=== PATIENT | male | born 1985 | race African-American/Black ===

== ENCOUNTER 2018-03-26 21:24 | Emergency (ER) | payer OTHER ==
--- NOTE | 2018-03-26 21:38 | PDOC ---
Rapid Medical Evaluation Time Seen by Provider: 03/26/18 21:28 Medical Evaluation: 03/26/18 21:28 I have performed a brief in-person evaluation of this patient. The patient presents with a chief complaint of: fatigued, anosmia and chronic pain for 5-6 months Pertinent physical exam findings: EOMI. No sinus tenderness. +nasal congestion I have ordered the following: nothing The patient will proceed to the ED for further evaluation. Discharge Disposition - Diagnosis Anosmia - Referrals - Patient Instructions - Post Discharge Activity
[2018-03-26 21:43] VITALS: BP 129/84; PULSE 94; TEMP 97.3; BMI 25.1
--- NOTE | 2018-03-26 22:17 | PDOC ---
History of Present Illness - General Chief Complaint: Chronic pain Stated Complaint: WEAKNESS/TROUBLE SMELLING Time Seen by Provider: 03/26/18 21:28 - History of Present Illness Initial Comments: 32-year-old male presents for evaluation of nasal congestion 3 days. He's had generalized body aches and pains for the last 5 months. He has no other associated symptoms 03/26/18 22:14 Past History - Past Medical History Home Medications: Ambulatory Orders Budesonide [Rhinocort Allergy] 1 spray NS ONCE #1 spray.pump 03/26/18 Cetirizine HCl/Pseudoephedrine [Zyrtec-D Tablet] 1 each PO DAILY #30 tab.er.12h 03/26/18 COPD: No Other medical history: headaches, chronic pain - Suicide/Smoking/Psychosocial Hx Smoking History: Current every day smoker Have you smoked in the past 12 months: Yes Number of Cigarettes Smoked Daily: 6 Information on smoking cessation initiated: Yes 'Breaking Loose' booklet given: 03/26/18 Hx Alcohol Use: No Drug/Substance Use Hx: No Substance Use Type: None Review of Systems - Review of Systems HEENTM: Yes: Nose Congestion All Other Systems: Reviewed and Negative *Physical Exam - Vital Signs Last Vital Signs Temp Pulse Resp BP Pulse Ox 97.3 F L 94 H 20 129/84 100 03/26/18 21:34 03/26/18 21:34 03/26/18 21:34 03/26/18 21:34 03/26/18 21:34 - Physical Exam Comments: GENERAL: The patient is awake, alert, and fully oriented, in no acute distress. HEAD: Normal with no signs of trauma. EYES: Pupils equal, round and reactive to light, extraocular movements intact, sclera anicteric, conjunctiva clear. ENT: Ears normal, nasal turbinates injected, oropharynx clear without exudates. Moist mucous membranes. NECK: Normal range of motion, supple without lymphadenopathy, JVD, or masses. LUNGS: Breath sounds equal, clear to auscultation bilaterally. No wheezes, and no crackles. HEART: Regular rate and rhythm, normal S1 and S2 without murmur, rub or gallop. ABDOMEN: Soft, nontender, normoactive bowel sounds. No guarding, no rebound. No masses. EXTREMITIES: Normal range of motion, no edema. No clubbing or cyanosis. No cords, erythema, or tenderness. NEUROLOGICAL: Cranial nerves II through XII grossly intact. Normal speech, normal gait. PSYCH: Normal mood, normal affect. SKIN: Warm, Dry, normal turgor, no rashes or lesions noted. 03/26/18 22:14 Medical Decision Making - Medical Decision Making Is is most likely seasonal ALLERGIES I'll prescribe him an antihistamine and decongestant as well as a nasal corticosteroid. I'll have him follow-up with the primary care physician for his fatigue 03/26/18 22:15 *DC/Admit/Observation/Transfer Diagnosis at time of Disposition: Anosmia, Seasonal allergies, Chronic fatigue disorder - Discharge Dispostion Disposition: HOME Condition at time of disposition: Stable Decision to Admit order: No - Prescriptions Prescriptions: Budesonide [Rhinocort Allergy] 1 spray NS ONCE #1 spray.pump Cetirizine HCl/Pseudoephedrine [Zyrtec-D Tablet] 1 each PO DAILY #30 tab.er.12h - Referrals Referrals: Rick Damon [Non Staff, Medical] - - Patient Instructions Printed Discharge Instructions: Allergic Rhinitis, DI for Chronic Fatigue Syndrome Additional Instructions: Return to the emergency room should her symptoms worsen or go unresolved. In the meantime I prescribed few a nasal decongestant spray which is a steroid as well as a antihistamine and decongestant to help with your symptoms. Follow-up with internal medicine within the next 1-2 days for further evaluation and treatment options. Take the medication as directed. - Post Discharge Activity
== END 2018-03-26 22:17 | disposition home or self-care (01) ==
LOC: JERFT 21:24
DX: R43.0 Anosmia (principal); J30.2 Other seasonal allergic rhinitis; R53.82 Chronic fatigue, unspecified
CPT/HCPCS: 99281-25

== ENCOUNTER 2019-02-16 09:24 | Observation (INO) | payer OTHER ==
[2019-02-16] MEDS ORDERED: KETOROLAC TROMETHAMINE 60 MG/2 ML VIAL IM ONE (10:17)
--- NOTE | 2019-02-16 10:25 | PDOC ---
History of Present Illness - General Chief Complaint: Pain, Acute Stated Complaint: LT SHOULDER PAIN Time Seen by Provider: 02/16/19 09:55 History Source: Patient Exam Limitations: Clinical Condition - History of Present Illness Initial Comments: 02/16/19 10:19 Patient with no significant past medical history present with complaint of worsening left upper shoulder, left hand and right wrist pain starting yesterday which has been persistent. Patient reported increased pain when elevating left forearm and the shoulder region. 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 Denies any trauma or injury. Denies numbness or tingling sensation. Denies any other symptoms Timing/Duration: 24 hours Past History - Past Medical History Allergies/Adverse Reactions: Allergies Allergy/AdvReac Type Severity Reaction Status Date / Time No Known Allergies Allergy Verified 02/16/19 10:23 Home Medications: Ambulatory Orders Budesonide [Rhinocort Allergy] 1 spray NS ONCE #1 spray.pump 03/26/18 Cetirizine HCl/Pseudoephedrine [Zyrtec-D Tablet] 1 each PO DAILY #30 tab.er.12h 03/26/18 Ibuprofen 800 mg PO Q8H PRN #20 tablet 02/16/19 Methocarbamol [Robaxin -] 500 mg PO TID PRN #21 tablet 02/16/19 COPD: No - Suicide/Smoking/Psychosocial Hx Smoking History: Never smoked Have you smoked in the past 12 months: Yes Number of Cigarettes Smoked Daily: 6 'Breaking Loose' booklet given: 03/26/18 Hx Alcohol Use: No Drug/Substance Use Hx: No Substance Use Type: None Review of Systems - Review of Systems Able to Perform ROS?: Yes Is the patient limited Indonesian proficient: No Constitutional: No: Chills, Fever, Malaise HEENTM: No: Symptoms Reported Respiratory: No: Symptoms reported Cardiac (ROS): No: Symptoms Reported ABD/GI: No: Symptoms Reported Musculoskeletal: Yes: Symptoms Reported, See HPI, Joint Pain (left shoulder, right wrist), Muscle Pain (palmar aspect of left hand). No: Muscle Weakness Neurological: No: Numbness, Paresthesia, Tingling All Other Systems: Reviewed and Negative *Physical Exam - Vital Signs Last Vital Signs Temp Pulse Resp BP Pulse Ox 105 H 22 H 107/66 96 02/16/19 09:48 02/16/19 09:48 02/16/19 09:48 02/16/19 09:48 - Physical Exam Comments: 02/16/19 10:23 GENERAL: Well developed, well nourished. Awake and alert. No acute distress. CARDIOVASCULAR: Regular rate and rhythm. No murmurs, rubs, or gallops. PULMONARY: No evidence of respiratory distress. Lungs clear to auscultation bilaterally. No wheezing, rales or rhonchi. ABDOMINAL: Soft. Non-tender. Non-distended. No rebound or guarding. No organomegaly. Normoactive bowel sounds MUSCULOSKELETAL : Mild tenderness over anterior left shoulder and before meals joint of left shoulder which is worse when elevation of left upper arm. Mild point tenderness to palmar aspect of bilateral hands and mild tenderness to thumb area of right wrist. Free range of motion of bilateral upper extremity. 5 out of 5 muscle strength in bilateral upper extremity. No bony deformities SKIN: Warm and dry. Normal capillary refill. No rashes. No cyanosis or increased warmth to skin. NEUROLOGICAL: Alert, awake, appropriate. No motor deficits in the lower extremities. Gait is normal without ataxia. PSYCHIATRIC: Cooperative. Good eye contact. Appropriate mood and affect. General Appearance: Yes: Nourished, Appropriately Dressed. No: Apparent Distress ED Treatment Course - LABORATORY CBC & Chemistry Diagram: 02/16/19 11:51 02/16/19 11:51 - RADIOLOGY Radiology Studies Ordered: Category Date Time Status HAND- LEFT [RAD] Stat Radiology 02/16/19 10:12 Ordered SHOULDER-LEFT [RAD] Stat Radiology 02/16/19 10:12 Ordered WRIST- RIGHT [RAD] Stat Radiology 02/16/19 10:17 Ordered Medical Decision Making - Medical Decision Making 02/16/19 10:20 Patient with no significant past medical history present with complaint of worsening left upper shoulder, left hand and right wrist pain starting yesterday which has been persistent. Patient reported increased pain when elevating left forearm and the shoulder region. 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 Denies any trauma or injury. Denies numbness or tingling sensation. Denies any other symptoms Exam significant for mild tenderness over anterior left shoulder and AC joint to left shoulder with mild tenderness to palmar aspect of left hand and thenar muscle of right wrist. Free range of motion of hands and shoulder. Normal sensory to bilateral upper extremity. Symptoms likely muscle strain from excessive use versus less likely dislocated shoulder. Toradol 60 IM ordered for pain. X-ray of left shoulder and bilateral hand and wrist ordered to rule out acute pathology. Patient be discharged home on a muscle relaxant NSAIDs if negative x-ray with orthopedics follow-up 02/16/19 11:17 Patient started having symptoms of SOB and sweating whiles in x-rays. Patient x- rays with no significant findings. Symptoms likely vasovagal reaction. EKG ordered. Patient transferred to main ED for follow-up care. Patient signed out to Dr. Massey *DC/Admit/Observation/Transfer Diagnosis at time of Disposition: Asthma exacerbation, Acute respiratory failure Strain of left shoulder Qualifiers: Encounter type: initial encounter Qualified Code(s): S46.912A - Strain of unspecified muscle, fascia and tendon at shoulder and upper arm level, left arm , initial encounter Strain of right wrist Qualifiers: Encounter type: initial encounter Qualified Code(s): S66.911A - Strain of unspecified muscle, fascia and tendon at wrist and hand level, right hand, initial encounter - Discharge Dispostion Condition at time of disposition: Guarded Decision to Admit order: No - Prescriptions Prescriptions: Ibuprofen 800 mg PO Q8H PRN #20 tablet PRN Reason: pain Methocarbamol [Robaxin -] 500 mg PO TID PRN #21 tablet PRN Reason: shoulder pain - Referrals - Patient Instructions - Post Discharge Activity
--- NOTE | 2019-02-16 11:09 | PDOC ---
*Physical Exam - Vital Signs Last Vital Signs Temp Pulse Resp BP Pulse Ox 105 H 22 H 107/66 96 02/16/19 09:48 02/16/19 09:48 02/16/19 09:48 02/16/19 09:48 Heart Score/ECG Review #1 ECG reviewed & interpreted by me at: 11:05 General ECG Interpretation: Sinus Rhythm, Normal Intervals Compared to previous ECG there are: Previous ECG unavail 02/16/19 12:53 EKG sinus tachycardia at 113 bpm, no interval abnormalities, narrow QRS, ST and T wave segments and morphology normal. Nonspecific T wave abnormalities - some limitations with artifact. ED Treatment Course - LABORATORY CBC & Chemistry Diagram: 02/16/19 11:51 02/16/19 11:51 - Medications Given in the ED: ED Medications Discontinued Medications Generic Name Dose Route Start Last Admin Trade Name Linoq PRN Reason Stop Dose Admin Ketorolac Tromethamine 60 mg 02/16/19 10:17 02/16/19 10:22 Toradol Injection - IM 02/16/19 10:18 60 mg ONCE ONE Administration Medical Decision Making - Medical Decision Making 02/16/19 11:08 The patient was seen and evaluated in conjunction with midlevel provider under my direct supervision, ancillary studies were reviewed. I agree with the plan as outlined DAR Coon. HPI, workup/dispo as outlined. VS reviewed, wnl. in summary 33 YOM with h/o allergies and asthma presenting with left shoulder pain, left hand pain, right wrist pain. 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 denies trauma. pt sent to Main section after episode of diaphoresis/SOB/hyperventilating and pale while in XR, witnessed episode where he felt blurry vision, near syncope/ fainting episode.. No primary care physician. +smoker - pt states he has left shoulder pain. also did not eat this morning. c/o some dizziness, sweats, coughing, and sob/anxiety. I promptly went to assess the patient as well while in Xray at 02/16/19 11:16 - able to speak, hyperventilating, anxious. mental status intact, neuro intact. lungs clear, tachy, no murmur. +left anterior AC jt tenderness, FROM, no back tenderness. no complaints of cp - VS with tachycardia in 100s, mildly tachypneic as hyperventilating but SpO2 normal, normotensive analgesia s/p toradol. additional meds given, tylenol and IVF EKG sinus tachycardia. limitations with artifact. hydration, BGM, basic labs, dimer, reassess. Xray left shoulder wnl, no fx or dislocation, humeral head in glenohumeral joint appropriately. no AC joint separation, no clavicle fx hand/wrist xr neg for osseous injuries or fx or abnormalities/acute pathology. 02/16/19 11:39 now with rhonchi and diffuse wheezing, increased WOB findings worse on left lung field.- h/o asthma, uses rescue inhaler occasionally, as needed will give duonebs x3, Mg and IV solumedrol, reassess eyes red, but no itching, airway intact, unable to speak full sentences but WOB. allergic reaction to toradol earlier that was given? no airway compromise to suggest Anaphylaxis at this time. now with acute Asthma exacerbation, no prior ICU stay or intubations previously. 02/16/19 12:34 - on reassessment, SpO2 92% on 4L NC - hypoxic off O2. O2 supplemental as needed , Q4H albuterol nebs. breathing comfortably after treatment, on monitor CXR clear, no ptx, effusion, pna. CT angio chest to eval for PE for persistent tachycardia and acute SOB. neg for PE< but +bronchiectasis and mucus plugging. 02/16/19 14:40 - standing Q4H albuterol nebs for respiratory support. no infectious sx. defer abx admit to Dr Álvarez, spoke about admission, tele obs for acute respiratory failure 2/2 asthma and bronchiectasis and unclear etiology. 02/16/19 14:45 02/16/19 14:45 *DC/Admit/Observation/Transfer Diagnosis at time of Disposition: Bronchiectasis Strain of left shoulder Qualifiers: Encounter type: initial encounter Qualified Code(s): S46.912A - Strain of unspecified muscle, fascia and tendon at shoulder and upper arm level, left arm , initial encounter Strain of right wrist Qualifiers: Encounter type: initial encounter Qualified Code(s): S66.911A - Strain of unspecified muscle, fascia and tendon at wrist and hand level, right hand, initial encounter Asthma exacerbation Qualifiers: Asthma severity: moderate Asthma persistence: unspecified Qualified Code(s): J45.901 - Unspecified asthma with (acute) exacerbation Acute respiratory failure Qualifiers: Respiratory failure complication: hypoxia Qualified Code(s): J96.01 - Acute respiratory failure with hypoxia - Discharge Dispostion Condition at time of disposition: Guarded Decision to Admit order: Yes Decision to Admit order Date/Time: 02/16/19 14:40 Decision to Admit Order Category Date Time Status Decision to Admit to Hospital Routine Admission 02/16/19 14:38 Ordered - Prescriptions Prescriptions: Ibuprofen 800 mg PO Q8H PRN #20 tablet PRN Reason: pain Methocarbamol [Robaxin -] 500 mg PO TID PRN #21 tablet PRN Reason: shoulder pain - Referrals - Patient Instructions - Post Discharge Activity
[2019-02-16] MEDS ORDERED: SODIUM CHLORIDE 0.9% 500 ML INFUS.BAG IV ONE (11:15)
[2019-02-16] MEDS ORDERED: ACETAMINOPHEN 325 MG TABLET (FP) PO ONE (11:16)
[2019-02-16] MEDS ORDERED: methylPREDNISolone NA SUCC 125 MG/2 ML VIAL IVPUSH ONE (11:39)
[2019-02-16] MEDS ORDERED: ALBUTEROL SO4 2.5/IPRATROPIUM 0.5 INH SOL 3 ML VIAL.NEB. NEB ONE (11:41)
[2019-02-16] MEDS ORDERED: MAGNESIUM SULF 50% (8.12 MEQ/2 ML-1 GM VIAL) IVPB ONE (11:43)
[2019-02-16] MEDS ORDERED: MAGNESIUM 1GM/D5W - 2 GM/200 ML IVPB IVPB ONE (11:48)
[2019-02-16] MEDS ORDERED: methylPREDNISolone NA SUCC 125 MG/2 ML VIAL ONE (11:48)
[2019-02-16] MEDS ORDERED: ACETAMINOPHEN INJECTION 100 ML IVPB ONE (11:53)
[2019-02-16 11:58] LABS: BASO % 0.5 % (0-2.0); EOS % 2.8 % (0-4.5); HEMATOCRIT 48.4 % (35.4-49); HEMOGLOBIN 15.9 GM/dL (11.7-16.9); LYMPH % 23.7 % (8-40); MCH 28.3 pg (25.7-33.7); MCHC 32.9 g/dl (32.0-35.9); MEAN CELL VOLUME 86.1 fl (80-96); MEAN PLT VOLUME 8.2 fl (7.5-11.1); PLATELET COUNT 288 K/MM3 (134-434); RBC 5.62 M/mm3 (4.00-5.60); RDW 14.6 % (11.9-15.9); WHITE BLOOD COUNT 8.3 K/mm3 (4.0-10.0)
[2019-02-16] MEDS: ALBUTEROL SO4 2.5/IPRATROPIUM 0.5 INH SOL 3 ML VIAL.NEB. NEB SCH ×3 (12:08→12:22)
[2019-02-16] MEDS ORDERED: ACETAMINOPHEN 1000 MG/100 ML VIAL (NON FORMULARY) IVPB ONE (12:23)
[2019-02-16 12:30] LABS: ANION GAP 9 MMOL/L (8-16); BLOOD UREA NITROGEN 10 mg/dL (7-18); CHLORIDE 104 mmol/L (98-107); CO2 23 mmol/L (21-32); GLUCOSE,RANDOM 126 mg/dL (74-106); POTASSIUM 3.9 mmol/L (3.5-5.1); SODIUM 137 mmol/L (136-145)
[2019-02-16] MEDS: ALBUTEROL SO4 0.083% IH SOL 2.5 MG/3 ML VIAL.NEB. NEB SCH ×2 (16:32→20:12)
--- NOTE | 2019-02-16 18:19 | HP ---
Admitting History and Physical - Primary Care Physician PCP: Chandrakant Álvarez - Admission History of Present Illness: Patient with no significant past medical history present with complaint of worsening left upper shoulder, left hand and right wrist pain starting yesterday which has been persistent. Patient reported increased pain when elevating left forearm and the shoulder region. 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 Denies any trauma or injury. Denies numbness or tingling sensation. Denies any other symptoms SMOKER FOR 12 YEARS - Past Medical History Pulmonary: Yes: COPD - Smoking History Smoking history: Never smoked Have you smoked in the past 12 months: Yes Aproximately how many cigarettes per day: 6 - Alcohol/Substance Use Hx Alcohol Use: No Home Medications - Allergies Allergies/Adverse Reactions: Allergies Allergy/AdvReac Type Severity Reaction Status Date / Time ketorolac [From Toradol] Allergy Verified 02/16/19 17:05 - Home Medications Home Medications: Ambulatory Orders Budesonide [Rhinocort Allergy] 1 spray NS ONCE #1 spray.pump 03/26/18 Cetirizine HCl/Pseudoephedrine [Zyrtec-D Tablet] 1 each PO DAILY #30 tab.er.12h 03/26/18 Ibuprofen 800 mg PO Q8H PRN #20 tablet 02/16/19 Methocarbamol [Robaxin -] 500 mg PO TID PRN #21 tablet 02/16/19 Physical Examination Vital Signs: Vital Signs Temperature 97.5 F L 02/16/19 17:52 Pulse Rate 103 H 02/16/19 17:52 Respiratory Rate 20 02/16/19 17:52 Blood Pressure 159/83 02/16/19 17:52 O2 Sat by Pulse Oximetry (%) 94 L 02/16/19 18:00 Constitutional: Yes: No Distress HENT: Yes: Atraumatic Neck: Yes: Supple Cardiovascular: Yes: Regular Rate and Rhythm Respiratory: Yes: Rhonchi, Wheezes Gastrointestinal: Yes: Normal Bowel Sounds Extremities: Yes: WNL Edema: No Peripheral Pulses WNL: Yes Neurological: Yes: Alert, Oriented Labs: CBC, BMP 02/16/19 11:51 02/16/19 11:51 Imaging - Results X-ray: Report Reviewed Cat Scan: Report Reviewed Problem List - Problems (1) Allergic reaction Assessment/Plan: to toradol on steroids and benadryl Code(s): T78.40XA - ALLERGY, UNSPECIFIED, INITIAL ENCOUNTER (2) Strain of left shoulder Code(s): S46.912A - STRAIN UNSP MUSC/FASC/TEND AT SHLDR/UP ARM, LEFT ARM, INIT Qualifiers: Encounter type: initial encounter Qualified Code(s): S46.912A - Strain of unspecified muscle, fascia and tendon at shoulder and upper arm level, left arm , initial encounter (3) Strain of right wrist Code(s): S66.911A - STRAIN OF UNSP MUSC/FASC/TEND AT WRS/HND LV, R HAND, INIT Qualifiers: Encounter type: initial encounter Qualified Code(s): S66.911A - Strain of unspecified muscle, fascia and tendon at wrist and hand level, right hand, initial encounter (4) Asthma exacerbation Assessment/Plan: DUO NEBS IV STEROIDS Code(s): J45.901 - UNSPECIFIED ASTHMA WITH (ACUTE) EXACERBATION Qualifiers: Asthma severity: moderate Asthma persistence: unspecified Qualified Code( s): J45.901 - Unspecified asthma with (acute) exacerbation (5) Bronchiectasis Code(s): J47.9 - BRONCHIECTASIS, UNCOMPLICATED Assessment/Plan Laboratory Tests 02/16/19 02/16/19 02/16/19 11:51 11:51 11:51 WBC 8.3 RBC 5.62 H Hgb 15.9 Hct 48.4 MCV 86.1 MCH 28.3 MCHC 32.9 RDW 14.6 Plt Count 288 MPV 8.2 Absolute Neuts (auto) 5.7 Neutrophils % 68.0 Lymphocytes % 23.7 Monocytes % 5.0 Eosinophils % 2.8 Basophils % 0.5 Nucleated RBC % 0 D-Dimer 539 H Sodium 137 Potassium 3.9 Chloride 104 Carbon Dioxide 23 Anion Gap 9 BUN 10 Creatinine 1.0 Est GFR (CKD-EPI)AfAm 114.91 Est GFR (CKD-EPI)NonAf 99.15 Random Glucose 126 H Calcium 9.0 Troponin I < 0.02 Active Medications Generic Name Dose Route Start Last Admin Trade Name Freq PRN Reason Stop Dose Admin Albuterol/Ipratropium 1 amp 02/16/19 20:21 02/17/19 06:40 Duoneb - NEB 1 amp Q4H PRN Administration SHORTNESS OF BREATH Diphenhydramine HCl 25 mg 02/16/19 20:18 Benadryl - PO Q6H PRN FOR ITCHING Methylprednisolone Sodium Succinate 60 mg 02/16/19 21:00 02/17/19 15:01 Solu-Medrol - IVPUSH 60 mg Q6H-IV SANTIAGO Administration Oxycodone HCl 10 mg 02/16/19 18:20 Roxicodone - PO Q6H PRN PAIN
[2019-02-16] MEDS ORDERED: oxyCODONE HCL 5 MG TABLET PO PRN (18:20)
[2019-02-16] MEDS ORDERED: diphenhydrAMINE HCL 25 MG CAPSULE (FP) PO ONE (20:17)
[2019-02-16] MEDS ORDERED: diphenhydrAMINE HCL 25 MG CAPSULE (FP) PO PRN (20:18)
[2019-02-16] MEDS: methylPREDNISolone NA SUCC 40 MG/1 ML VIAL IVPUSH SCH (20:31)
[2019-02-17] MEDS: methylPREDNISolone NA SUCC 40 MG/1 ML VIAL IVPUSH SCH ×4 (02:11→21:48)
[2019-02-17] MEDS: ALBUTEROL SO4 2.5/IPRATROPIUM 0.5 INH SOL 3 ML VIAL.NEB. NEB PRN (06:40)
--- NOTE | 2019-02-17 13:45 | EKG ---
Test Reason : Blood Pressure : / mmHG Vent. Rate : 113 BPM Atrial Rate : 113 BPM P-R Int : 122 ms QRS Dur : 086 ms QT Int : 300 ms P-R-T Axes : 077 093 060 degrees QTc Int : 411 ms SINUS TACHYCARDIA RIGHTWARD AXIS BORDERLINE ECG NO PREVIOUS ECGS AVAILABLE Confirmed by MD Piyush, Wyatt ([id number]) on 02/17/2019 1:45:35 PM Referred By: Confirmed By:Wyatt Pikcett MD
--- NOTE | 2019-02-17 15:42 | PN ---
Progress Note, Physician - Current Medication List Current Medications: Active Medications Albuterol/Ipratropium (Duoneb -) 1 amp NEB Q4H PRN PRN Reason: SHORTNESS OF BREATH Last Admin: 02/17/19 06:40 Dose: 1 amp Diphenhydramine HCl (Benadryl -) 25 mg PO Q6H PRN PRN Reason: FOR ITCHING Methylprednisolone Sodium Succinate (Solu-Medrol -) 60 mg IVPUSH Q6H-IV SANTIAGO Last Admin: 02/17/19 15:01 Dose: 60 mg Oxycodone HCl (Roxicodone -) 10 mg PO Q6H PRN PRN Reason: PAIN - Objective Vital Signs: Vital Signs Temperature 97.6 F 02/17/19 15:00 Pulse Rate 94 H 02/17/19 15:00 Respiratory Rate 20 02/17/19 15:00 Blood Pressure 125/77 02/17/19 15:00 O2 Sat by Pulse Oximetry (%) 95 02/17/19 10:00 Constitutional: Yes: No Distress HENT: Yes: Atraumatic Neck: Yes: Supple Cardiovascular: Yes: Regular Rate and Rhythm Respiratory: Yes: Rhonchi, Wheezes Gastrointestinal: Yes: Normal Bowel Sounds Extremities: Yes: WNL Edema: No Peripheral Pulses WNL: Yes Neurological: Yes: Alert, Oriented Labs: CBC, BMP 02/16/19 11:51 02/16/19 11:51 Problem List - Problems (1) Allergic reaction Assessment/Plan: to toradol on steroids and benadryl Code(s): T78.40XA - ALLERGY, UNSPECIFIED, INITIAL ENCOUNTER (2) Strain of left shoulder Code(s): S46.912A - STRAIN UNSP MUSC/FASC/TEND AT SHLDR/UP ARM, LEFT ARM, INIT Qualifiers: Encounter type: initial encounter Qualified Code(s): S46.912A - Strain of unspecified muscle, fascia and tendon at shoulder and upper arm level, left arm , initial encounter (3) Strain of right wrist Code(s): S66.911A - STRAIN OF UNSP MUSC/FASC/TEND AT WRS/HND LV, R HAND, INIT Qualifiers: Encounter type: initial encounter Qualified Code(s): S66.911A - Strain of unspecified muscle, fascia and tendon at wrist and hand level, right hand, initial encounter (4) Asthma exacerbation Assessment/Plan: DUO NEBS IV STEROIDS Code(s): J45.901 - UNSPECIFIED ASTHMA WITH (ACUTE) EXACERBATION Qualifiers: Asthma severity: moderate Asthma persistence: unspecified Qualified Code( s): J45.901 - Unspecified asthma with (acute) exacerbation (5) Bronchiectasis Code(s): J47.9 - BRONCHIECTASIS, UNCOMPLICATED
[2019-02-18] MEDS: methylPREDNISolone NA SUCC 40 MG/1 ML VIAL IVPUSH SCH ×4 (03:05→21:33)
[2019-02-18] MEDS: ALBUTEROL SO4 2.5/IPRATROPIUM 0.5 INH SOL 3 ML VIAL.NEB. NEB PRN ×2 (08:00→19:41)
[2019-02-18] MEDS ORDERED: ACETAMINOPHEN 325 MG TABLET (FP) PO PRN (18:56)
--- NOTE | 2019-02-18 19:00 | PN ---
Progress Note, Physician History of Present Illness: feeling better - Current Medication List Current Medications: Active Medications Acetaminophen (Tylenol -) 650 mg PO Q6H PRN PRN Reason: FEVER Albuterol/Ipratropium (Duoneb -) 1 amp NEB Q4H PRN PRN Reason: SHORTNESS OF BREATH Last Admin: 02/17/19 06:40 Dose: 1 amp Methylprednisolone Sodium Succinate (Solu-Medrol -) 40 mg IVPUSH Q6H-IV SANTIAGO - Objective Vital Signs: Vital Signs Temperature 98.2 F 02/18/19 14:00 Pulse Rate 70 02/18/19 14:00 Respiratory Rate 18 02/18/19 18:00 Blood Pressure 132/78 02/18/19 14:00 O2 Sat by Pulse Oximetry (%) 97 02/18/19 18:00 Constitutional: Yes: No Distress HENT: Yes: Atraumatic Neck: Yes: Supple Cardiovascular: Yes: Regular Rate and Rhythm Respiratory: Yes: Rhonchi, Wheezes Gastrointestinal: Yes: Normal Bowel Sounds Extremities: Yes: WNL Edema: No Neurological: Yes: Alert, Oriented Labs: CBC, BMP 02/16/19 11:51 02/16/19 11:51 Problem List - Problems (1) Allergic reaction Assessment/Plan: taper steroids Code(s): T78.40XA - ALLERGY, UNSPECIFIED, INITIAL ENCOUNTER (2) Strain of left shoulder Code(s): S46.912A - STRAIN UNSP MUSC/FASC/TEND AT SHLDR/UP ARM, LEFT ARM, INIT Qualifiers: Encounter type: initial encounter Qualified Code(s): S46.912A - Strain of unspecified muscle, fascia and tendon at shoulder and upper arm level, left arm , initial encounter (3) Strain of right wrist Code(s): S66.911A - STRAIN OF UNSP MUSC/FASC/TEND AT WRS/HND LV, R HAND, INIT Qualifiers: Encounter type: initial encounter Qualified Code(s): S66.911A - Strain of unspecified muscle, fascia and tendon at wrist and hand level, right hand, initial encounter (4) Asthma exacerbation Assessment/Plan: DUO NEBS IV STEROIDS Code(s): J45.901 - UNSPECIFIED ASTHMA WITH (ACUTE) EXACERBATION Qualifiers: Asthma severity: moderate Asthma persistence: unspecified Qualified Code( s): J45.901 - Unspecified asthma with (acute) exacerbation (5) Bronchiectasis Code(s): J47.9 - BRONCHIECTASIS, UNCOMPLICATED
[2019-02-18 23:29] VITALS: BMI 26.3
[2019-02-19] MEDS: ALBUTEROL SO4 2.5/IPRATROPIUM 0.5 INH SOL 3 ML VIAL.NEB. NEB PRN ×3 (00:55→15:15)
[2019-02-19] MEDS: methylPREDNISolone NA SUCC 40 MG/1 ML VIAL IVPUSH SCH ×3 (02:36→15:28)
[2019-02-19 06:09] LABS: BASO % 0.2 % (0-2.0); HEMATOCRIT 43.5 % (35.4-49); HEMOGLOBIN 14.3 GM/dL (11.7-16.9); LYMPH % 7.4 % (8-40); MCH 28.2 pg (25.7-33.7); MCHC 32.8 g/dl (32.0-35.9); MEAN PLT VOLUME 8.3 fl (7.5-11.1); MONO % 3.4 % (3.8-10.2); PLATELET COUNT 302 K/MM3 (134-434); RBC 5.06 M/mm3 (4.00-5.60); RDW 14.4 % (11.9-15.9); WHITE BLOOD COUNT 12.9 K/mm3 (4.0-10.0)
[2019-02-19 06:43] LABS: ALBUMIN 2.9 g/dl (3.4-5.0); BILIRUBIN,TOTAL 0.3 mg/dL (0.2-1); CALCIUM 8.5 mg/dL (8.5-10.1); CREATININE 0.7 mg/dL (0.55-1.3); POTASSIUM 4.6 mmol/L (3.5-5.1); TOT PROT 6.4 g/dl (6.4-8.2)
[2019-02-19 14:16] VITALS: BP 127/75; PULSE 81; TEMP 98.5
--- NOTE | 2019-02-19 14:38 | CON.PULM ---
Consult Consult Specialty:: PULMONARY Referred by:: Dr Álvarez Reason for Consultation:: bronchiectasis - History of Present Illness Chief Complaint: arm pain History of Present Illness: 33yo male without significant past medical history who was admitted with left arm pain. Pulmonary consulted as CT chest showed evidence of bronchiectasis. He states he was diagnosed with asthma this past month with asthma at [facility]. No shortness of breath, chronic cough or wheezing. No fevers, chills or sweats. He is a smoker for about 10 years, no history of pneumonia. No known family history of lung disease or rheumatologic disease. - History Source History Provided By: Patient, Medical Record Limitations to Obtaining History: No Limitations - Alcohol/Substance Use Hx Alcohol Use: No - Smoking History Smoking history: Never smoked Have you smoked in the past 12 months: Yes Aproximately how many cigarettes per day: 6 Home Medications - Allergies Allergies/Adverse Reactions: Allergies Allergy/AdvReac Type Severity Reaction Status Date / Time ketorolac [From Toradol] Allergy Verified 02/16/19 17:05 - Home Medications Home Medications: Ambulatory Orders Budesonide [Rhinocort Allergy] 1 spray NS ONCE #1 spray.pump 03/26/18 Cetirizine HCl/Pseudoephedrine [Zyrtec-D Tablet] 1 each PO DAILY #30 tab.er.12h 03/26/18 Ibuprofen 800 mg PO Q8H PRN #20 tablet 02/16/19 Methocarbamol [Robaxin -] 500 mg PO TID PRN #21 tablet 02/16/19 Review of Systems - Review of Systems Constitutional: denies: Chills, Fever, Unintentional Wgt. Loss, Weakness Eyes: denies: Recent Change in Vision HENT: denies: Nasal Congestion, Throat Pain Neck: denies: Stiffness, Tenderness Cardiovascular: denies: Chest Pain, Shortness of Breath Respiratory: denies: Cough, Hemoptysis, Wheezing Gastrointestinal: denies: Abdominal Pain, Nausea, Vomiting Genitourinary: denies: Dysuria, Hematuria Neurological: denies: Dizziness, Headache Endocrine: denies: Unexplained Weight Loss Physical Exam Vital Sings: Vital Signs Temperature 98.5 F 02/19/19 14:00 Pulse Rate 81 02/19/19 14:00 Respiratory Rate 18 02/19/19 14:00 Blood Pressure 127/75 02/19/19 14:00 O2 Sat by Pulse Oximetry (%) 97 02/19/19 08:57 Constitutional: Yes: Calm Eyes: Yes: Conjunctiva Clear, EOM Intact HENT: Yes: Atraumatic, Normocephalic Neck: Yes: Supple, Trachea Midline Cardiovascular: Yes: Regular Rate and Rhythm Respiratory: Yes: Diminished (decreased breath sounds at the bases) ...Clubbing: No Gastrointestinal: Yes: Normal Bowel Sounds, Soft. No: Tenderness Edema: No Neurological: Yes: Alert, Oriented Labs: CBC, BMP 02/19/19 05:30 02/19/19 05:30 Imaging - Results Chest X-ray: Report Reviewed, Image Reviewed Cat Scan: Report Reviewed, Image Reviewed (bronchiectasis, COPD changes) Problem List - Problems (1) Bronchiectasis Code(s): J47.9 - BRONCHIECTASIS, UNCOMPLICATED Assessment/Plan Bronchiectasis Smoker - pt current asymptomatic - will need outpt work up including PFTs, sputum culture, IgE level, aspergillus Ab, quantitative immunoglobulins, COLE screen, cystic fibrosis screening, alpha anti trypsin 1 level - smoking cessation discussed - DVT prophylaxis Thank you for this consult Ron Irizarry MD
--- NOTE | 2019-02-19 17:58 | DS ---
Physical Examination Vital Signs: Vital Signs Temperature 98.5 F 02/19/19 14:00 Pulse Rate 81 02/19/19 14:00 Respiratory Rate 18 02/19/19 16:44 Blood Pressure 127/75 02/19/19 14:00 O2 Sat by Pulse Oximetry (%) 97 02/19/19 16:44 Constitutional: Yes: No Distress HENT: Yes: Atraumatic Neck: Yes: Supple Cardiovascular: Yes: Regular Rate and Rhythm Respiratory: Yes: Rhonchi Gastrointestinal: Yes: Normal Bowel Sounds Extremities: Yes: WNL Edema: No Peripheral Pulses WNL: Yes Neurological: Yes: Alert, Oriented Labs: CBC, BMP 02/19/19 05:30 02/19/19 05:30 Discharge Summary Reason For Visit: EXACERBATION OF ASTHMA,ACUTE RESP FAILURE,STRAIN Current Active Problems Acute respiratory failure (Acute) Allergic reaction (Acute) Asthma exacerbation (Acute) Bronchiectasis (Acute) Strain of left shoulder (Acute) Strain of right wrist (Acute) Condition: Guarded - Instructions Referrals: Jeff Cyr MD [Staff Physician] - - Home Medications Comprehensive Discharge Medication List: Ambulatory Orders Budesonide [Rhinocort Allergy] 1 spray NS ONCE #1 spray.pump 03/26/18 Cetirizine HCl/Pseudoephedrine [Zyrtec-D Tablet] 1 each PO DAILY #30 tab.er.12h 03/26/18 Ibuprofen 800 mg PO Q8H PRN #20 tablet 02/16/19 Methocarbamol [Robaxin -] 500 mg PO TID PRN #21 tablet 02/16/19 Prednisone 10 mg PO ASDIR #30 tablet 02/19/19 mn home
== END 2019-02-19 18:57 | disposition home or self-care (01) ==
LOC: JER 09:24 → JERFT 09:24 → JERBED 14:38 → J4S 18:12
PROVIDERS: ADMIT Internal Medicine; ATTEND Internal Medicine
PROC: 3E0333Z Introduction of Anti-inflammatory into Peripheral Vein, Percutaneous Approach (ICD-10-PCS; principal; 2019-02-16)
PROC: 3E0233Z Introduction of Anti-inflammatory into Muscle, Percutaneous Approach (ICD-10-PCS; 2019-02-16)
PROC: 3E03329 Introduction of Other Anti-infective into Peripheral Vein, Percutaneous Approach (ICD-10-PCS; 2019-02-16)
PROC: 3E0337Z Introduction of Electrolytic and Water Balance Substance into Peripheral Vein, Percutaneous Approach (ICD-10-PCS; 2019-02-16)
PROC: 3E033GC Introduction of Other Therapeutic Substance into Peripheral Vein, Percutaneous Approach (ICD-10-PCS; 2019-02-16)
PROC: 3E0F7GC Introduction of Other Therapeutic Substance into Respiratory Tract, Via Natural or Artificial Opening (ICD-10-PCS; 2019-02-16)
DX: J45.901 Unspecified asthma with (acute) exacerbation (principal); J96.01 Acute respiratory failure with hypoxia; J47.9 Bronchiectasis, uncomplicated; T78.40XA Allergy, unspecified, initial encounter; S46.912A Strain of unspecified muscle, fascia and tendon at shoulder and upper arm level, left arm, initial encounter; S66.911A Strain of unspecified muscle, fascia and tendon at wrist and hand level, right hand, initial encounter; R00.0 Tachycardia, unspecified; X58.XXXA Exposure to other specified factors, initial encounter; Y93.9 Activity, unspecified; Y92.9 Unspecified place or not applicable
CPT/HCPCS: 36415; 71046-TC-FY; 71275-TC; 73030-TC-LT-FY; 73110-TC-RT-FY; 73130-TC-LT-FY; 80048; 80053; 84484; 85025; 85379; 93005; 93010; 94640; 96372; 96374; 96375; 96376; 99283-25; G0378; J0131

== ENCOUNTER 2019-03-30 01:37 | Inpatient (IN) | payer OTHER ==
--- NOTE | 2019-03-30 02:01 | PDOC ---
History of Present Illness - General Chief Complaint: Asthma Stated Complaint: ASTHMA Time Seen by Provider: 03/30/19 02:00 - History of Present Illness Initial Comments: 03/30/19 02:00 Mr. Rea is a 33 yo male w/ pmh of Asthma, recently admitted 02/16-02/19 for asthma / bronchiectasis who presents for evaluation of 3 day history of cough and shortness of breath. Patient reports he attempted to use rescue inhaler at home w/out relief. Patient was attempting to make it to an appt this week however presents as his SOB has continued with additional cough. The patient denies chest pain, headache and dizziness. Denies fever, chills, nausea, vomit, diarrhea and constipation. Denies dysuria, frequency, urgency and hematuria. Past History - Past Medical History Allergies/Adverse Reactions: Allergies Allergy/AdvReac Type Severity Reaction Status Date / Time ketorolac [From Toradol] Allergy Verified 03/30/19 02:05 Home Medications: Ambulatory Orders Budesonide [Rhinocort Allergy] 1 spray NS ONCE #1 spray.pump 03/26/18 Cetirizine HCl/Pseudoephedrine [Zyrtec-D Tablet] 1 each PO DAILY #30 tab.er.12h 03/26/18 Ibuprofen 800 mg PO Q8H PRN #20 tablet 02/16/19 Methocarbamol [Robaxin -] 500 mg PO TID PRN #21 tablet 02/16/19 Prednisone 10 mg PO ASDIR #30 tablet 02/19/19 Anemia: No Asthma: Yes Cancer: No Cardiac Disorders: No CVA: No COPD: No CHF: No Dementia: No Diabetes: No GI Disorders: No Disorders: No HTN: No Hypercholesterolemia: No Liver Disease: No Seizures: No Thyroid Disease: No - Surgical History Abdominal Surgery: No Appendectomy: No Cardiac Surgery: No Cholecystectomy: No Lung Surgery: No Neurologic Surgery: No Orthopedic Surgery: No - Immunization History Immunization Up to Date: (unknown) - Suicide/Smoking/Psychosocial Hx Smoking History: Current every day smoker Have you smoked in the past 12 months: Yes Number of Cigarettes Smoked Daily: 6 'Breaking Loose' booklet given: 03/26/18 Hx Alcohol Use: No Drug/Substance Use Hx: No Substance Use Type: None Hx Substance Use Treatment: No Review of Systems - Review of Systems Comments:: 03/30/19 02:01 GENERAL/CONSTITUTIONAL: No fever or chills. No weakness. HEAD, EYES, EARS, NOSE AND THROAT: No change in vision. No ear pain or discharge. No sore throat. CARDIOVASCULAR: No chest pain RESPIRATORY: +3 days of cough and SOB. GASTROINTESTINAL: No nausea, vomiting, diarrhea or constipation. GENITOURINARY: No dysuria, frequency, or change in urination. MUSCULOSKELETAL: No joint or muscle swelling or pain. No neck or back pain. SKIN: No rash NEUROLOGIC: No headache, vertigo, loss of consciousness, or change in strength/ sensation. ENDOCRINE: No increased thirst. No abnormal weight change HEMATOLOGIC/LYMPHATIC: No anemia, easy bleeding, or history of blood clots. ALLERGIC/IMMUNOLOGIC: No hives or skin allergy. *Physical Exam - Physical Exam Comments: 03/30/19 02:01 GENERAL: +Patient obviously SOB w/ cough and limited responses. Awake, alert, and fully oriented HEAD: No signs of trauma, normocephalic, atraumatic EYES: PERRLA, EOMI, sclera anicteric, conjunctiva clear ENT: Auricles normal inspection, hearing grossly normal, nares patent, oropharynx clear without exudates. Moist mucosa NECK: Normal ROM, supple, no lymphadenopathy, JVD, or masses LUNGS: +Wheezing and poor air movement appreciated throughout lung whiting. HEART: Regular rate and rhythm, normal S1 and S2, no murmurs, rubs or gallops, peripheral pulses normal and equal bilaterally. ABDOMEN: Soft, nontender, normoactive bowel sounds. No guarding, no rebound. No masses EXTREMITIES: Normal inspection, Normal range of motion, no edema. No clubbing or cyanosis. NEUROLOGICAL: Cranial nerves II through XII grossly intact. Normal speech, normal gait, no focal sensorimotor deficits SKIN: Warm, Dry, normal turgor, no rashes or lesions noted. ED Treatment Course - LABORATORY CBC & Chemistry Diagram: 03/30/19 02:18 03/30/19 02:18 Medical Decision Making - Medical Decision Making 03/30/19 04:08 Mr. Rea is a 33 yo male w/ pmh as described who presents for evaluation of asthma exacerbation. Patient given steroids and duonebs x4 with significant improvement of breathing. Patient still remains somewhat wheezy however so Mg added to treatment course. 03/30/19 04:44 Patient continued to be SOB. Will admit for further evaluation and monitoring. *DC/Admit/Observation/Transfer Diagnosis at time of Disposition: Asthma exacerbation Qualifiers: Asthma severity: unspecified severity Asthma persistence: unspecified Qualified Code(s): J45.901 - Unspecified asthma with (acute) exacerbation - Discharge Dispostion Condition at time of disposition: Fair Decision to Admit order: Yes - Referrals - Patient Instructions - Post Discharge Activity
[2019-03-30 02:05] VITALS: BMI 27.1
[2019-03-30] MEDS ORDERED: methylPREDNISolone NA SUCC 125 MG/2 ML VIAL IVPB ONE (02:07)
[2019-03-30] MEDS ORDERED: ALBUTEROL SO4 2.5/IPRATROPIUM 0.5 INH SOL 3 ML VIAL.NEB. NEB ONE ×4 (02:09→08:57)
[2019-03-30] MEDS ORDERED: methylPREDNISolone NA SUCC 125 MG/2 ML VIAL ONE (02:16)
[2019-03-30] MEDS: ALBUTEROL SO4 2.5/IPRATROPIUM 0.5 INH SOL 3 ML VIAL.NEB. NEB SCH ×8 (02:16→19:40)
[2019-03-30] MEDS ORDERED: SODIUM CHLORIDE 1,000 ML IV STA (02:23)
[2019-03-30 02:24] LABS: EOS % 5.8 % (0-4.5); HEMATOCRIT 43.8 % (35.4-49); HEMOGLOBIN 14.4 GM/dL (11.7-16.9); LYMPH % 34.2 % (8-40); MCH 28.3 pg (25.7-33.7); MCHC 32.8 g/dl (32.0-35.9); MEAN CELL VOLUME 86.3 fl (80-96); MEAN PLT VOLUME 7.6 fl (7.5-11.1); MONO % 10.2 % (3.8-10.2); NEUT % 48.8 % (42.8-82.8); PLATELET COUNT 262 K/MM3 (134-434); RBC 5.07 M/mm3 (4.00-5.60); RDW 14.4 % (11.9-15.9); WHITE BLOOD COUNT 8.1 K/mm3 (4.0-10.0)
[2019-03-30 03:07] LABS: ALBUMIN 3.3 g/dl (3.4-5.0); BILIRUBIN,TOTAL 0.3 mg/dL (0.2-1); BLOOD UREA NITROGEN 11.3 mg/dL (7-18); CALCIUM 8.8 mg/dL (8.5-10.1); POTASSIUM 3.9 mmol/L (3.5-5.1); TOT PROT 6.9 g/dl (6.4-8.2)
--- NOTE | 2019-03-30 03:30 | PDOC ---
Attending Attestation - Resident Resident Name: Gerry Bolaños - ED Attending Attestation I have performed the following: I have examined & evaluated the patient, The case was reviewed & discussed with the resident, I agree w/resident's findings & plan, Exceptions are as noted - HPI HPI: 03/30/19 03:43 33M pmh of asthma admitted last month for asthma exacerbation here with 3 days of progressive cough and increasingly dependant on his rescue inhaler - Physicial Exam PE: 03/30/19 03:44 Agree with exam as documented by resident - Medical Decision Making 03/30/19 03:48 Asthma exacerbation symptomatic treatment monitor dispo per clinical course 03/30/19 06:50 Patient requiring further care, will admit
[2019-03-30] MEDS ORDERED: MAGNESIUM SULF 50% (8.12 MEQ/2 ML-1 GM VIAL) IVPB ONE (04:07)
--- NOTE | 2019-03-30 05:16 | HP ---
Admitting History and Physical - Primary Care Physician PCP: Wilber Ibanez - Admission Chief Complaint: 3 days of sob/cough History of Present Illness: 33 year old male with Pmhx of asthma, present with sob/cough for past three days patient attempted to use rescue inhaler without any relief. Patient recent admission was 02/16-02/19 for asthma/ bronchiectasis. Patient at this time denies cp/headache/dizziness/ fever/chills/ N&V/diarrhea and constipation. History Source: Patient Limitations to Obtaining History: No Limitations - Past Medical History Pulmonary: Yes: Asthma - Past Surgical History Past Surgical History: Yes: None - Smoking History Smoking history: Current every day smoker Have you smoked in the past 12 months: Yes Aproximately how many cigarettes per day: 6 - Alcohol/Substance Use Hx Alcohol Use: No History of Substance Use: reports: None Home Medications - Allergies Allergies/Adverse Reactions: Allergies Allergy/AdvReac Type Severity Reaction Status Date / Time ketorolac [From Toradol] Allergy Verified 03/30/19 02:05 - Home Medications Home Medications: Ambulatory Orders Budesonide [Rhinocort Allergy] 1 spray NS ONCE #1 spray.pump 03/26/18 Cetirizine HCl/Pseudoephedrine [Zyrtec-D Tablet] 1 each PO DAILY #30 tab.er.12h 03/26/18 Ibuprofen 800 mg PO Q8H PRN #20 tablet 02/16/19 Methocarbamol [Robaxin -] 500 mg PO TID PRN #21 tablet 02/16/19 Prednisone 10 mg PO ASDIR #30 tablet 02/19/19 Review of Systems - Review of Systems Constitutional: reports: No Symptoms Eyes: reports: No Symptoms HENT: reports: No Symptoms Neck: reports: No Symptoms Cardiovascular: reports: No Symptoms Respiratory: reports: Cough, SOB Gastrointestinal: reports: No Symptoms Genitourinary: reports: No Symptoms Breasts: reports: No Symptoms Reported Musculoskeletal: reports: No Symptoms Integumentary: reports: No Symptoms Neurological: reports: No Symptoms Endocrine: reports: No Symptoms Hematology/Lymphatic: reports: No Symptoms Psychiatric: reports: No Symptoms Physical Examination Vital Signs: Vital Signs Temperature 98.7 F 03/30/19 01:37 Pulse Rate 102 H 03/30/19 01:37 Respiratory Rate 22 H 03/30/19 01:37 Blood Pressure 114/74 03/30/19 01:37 O2 Sat by Pulse Oximetry (%) 94 L 03/30/19 01:37 Constitutional: Yes: Well Nourished, Mild Distress Eyes: Yes: WNL, Conjunctiva Clear, EOM Intact HENT: Yes: Atraumatic, Normocephalic Neck: Yes: Supple, Trachea Midline Cardiovascular: Yes: Regular Rate and Rhythm Respiratory: Yes: On Nasal O2, SOB, Wheezes Gastrointestinal: Yes: Normal Bowel Sounds, Soft Integumentary: Yes: WNL Neurological: Yes: Alert, Oriented Psychiatric: Yes: Alert, Oriented Labs: CBC, BMP 03/30/19 02:18 03/30/19 02:18 Problem List - Problems (1) Asthma exacerbation Assessment/Plan: Asthma exacerabtion - In ED steriods, duoneb x4 given, mg+ was added - continue with duoneb q 4 hours - start prednisone 40 mg daily for 10 days - pulmo consult Code(s): J45.901 - UNSPECIFIED ASTHMA WITH (ACUTE) EXACERBATION Qualifiers: Asthma severity: unspecified severity Asthma persistence: unspecified Qualified Code(s): J45.901 - Unspecified asthma with (acute) exacerbation Assessment/Plan Asthma exacerabtion - In ED steriods, duoneb x4 given, mg+ was added - continue with duoneb q 4 hours - start prednisone 40 mg daily for 10 days - pending CXR - pulmo consult Visit type - Emergency Visit Emergency Visit: Yes Care time: The patient presented to the Emergency Department on the above date and was hospitalized for further evaluation of their emergent condition. - New Patient This patient is new to me today: Yes Date on this admission: 03/30/19 - Critical Care Critical Care patient: No
[2019-03-30] MEDS ORDERED: MAGNESIUM 1GM/D5W - 1 GM/100 ML IVPB IVPB ONE (05:22)
[2019-03-30 06:01] LABS: HEMATOCRIT 41.2 % (35.4-49); MCH 28.5 pg (25.7-33.7); MCHC 33.4 g/dl (32.0-35.9); MEAN CELL VOLUME 85.4 fl (80-96)
[2019-03-30 06:06] LABS: BASO % 0.3 % (0-2.0); EOS % 1.4 % (0-4.5); HEMOGLOBIN 13.8 GM/dL (11.7-16.9); MEAN PLT VOLUME 7.6 fl (7.5-11.1); NEUT % 87.3 % (42.8-82.8); PLATELET COUNT 255 K/MM3 (134-434); RBC 4.83 M/mm3 (4.00-5.60); RDW 14.7 % (11.9-15.9); WHITE BLOOD COUNT 9.9 K/mm3 (4.0-10.0)
[2019-03-30 06:25] LABS: ALBUMIN 3.2 g/dl (3.4-5.0); BILIRUBIN,TOTAL 0.2 mg/dL (0.2-1); BLOOD UREA NITROGEN 11.5 mg/dL (7-18); CALCIUM 8.5 mg/dL (8.5-10.1); POTASSIUM 4.3 mmol/L (3.5-5.1); TOT PROT 6.6 g/dl (6.4-8.2)
--- NOTE | 2019-03-30 07:58 | PN ---
Progress Note, Physician Chief Complaint: SOB after running our of bronchodilators at home History of Present Illness: 33 year old male with Pmhx of asthma, present with sob/cough for past three days patient attempted to use rescue inhaler without any relief. Patient recent admission was 02/16-02/19 for asthma/ bronchiectasis. Patient at this time denies cp/headache/dizziness/ fever/chills/ N&V/diarrhea and constipation. - Current Medication List Current Medications: Active Medications Albuterol/Ipratropium (Duoneb -) 1 amp NEB RQID [facility] Stop: 03/30/19 20:01 Prednisone (Deltasone -) 40 mg PO DAILY [facility] Stop: 04/05/19 23:59 - Objective Vital Signs: Vital Signs Temperature 98.7 F 03/30/19 01:37 Pulse Rate 102 H 03/30/19 01:37 Respiratory Rate 22 H 03/30/19 01:37 Blood Pressure 114/74 03/30/19 01:37 O2 Sat by Pulse Oximetry (%) 94 L 03/30/19 01:37 Constitutional: Yes: Well Nourished, No Distress, Calm Eyes: Yes: WNL, Conjunctiva Clear, EOM Intact HENT: Yes: WNL, Atraumatic, Normocephalic Neck: Yes: WNL, Supple, Trachea Midline Cardiovascular: Yes: WNL, Regular Rate and Rhythm Respiratory: Yes: Regular, Wheezes (expiratory wheezes to upper lung whiting) Gastrointestinal: Yes: WNL, Normal Bowel Sounds, Soft ...Rectal Exam: Yes: Deferred Genitourinary: Yes: WNL Musculoskeletal: Yes: WNL Extremities: Yes: WNL Edema: No Peripheral Pulses WNL: Yes Integumentary: Yes: WNL Neurological: Yes: WNL, Alert, Oriented ...Motor Strength: WNL Psychiatric: Yes: WNL, Alert, Oriented Labs: CBC, BMP 03/30/19 05:50 03/30/19 05:50 - ....Imaging Chest X-ray: Image Reviewed (no effusion or infiltrates) Problem List - Problems (1) Prophylactic measure Assessment/Plan: FEN regular diet monitor electrolytes DVT ambulatory Dispo admit to med surg floor and observe overnight full code discharge planning Code(s): Z29.9 - ENCOUNTER FOR PROPHYLACTIC MEASURES, UNSPECIFIED (2) Asthma exacerbation Assessment/Plan: patient states ventolin inhaler was malfunctioning and was without meds x 3 days DUo nebs/ magnesium and Solumedrol 125mg x 1 given in Ed with significant improvement Presnidone 40mg PO started will continue and taper over 2 weeks on discharge supplement O2 to mainatin marko >92% pulmonary consult as per ED request Code(s): J45.901 - UNSPECIFIED ASTHMA WITH (ACUTE) EXACERBATION Qualifiers: Asthma severity: unspecified severity Asthma persistence: unspecified Qualified Code(s): J45.901 - Unspecified asthma with (acute) exacerbation Visit type - Emergency Visit Emergency Visit: Yes ED Registration Date: 03/30/19 Care time: The patient presented to the Emergency Department on the above date and was hospitalized for further evaluation of their emergent condition. - New Patient This patient is new to me today: Yes Date on this admission: 03/30/19 - Critical Care Critical Care patient: No - Discharge Referral Referred to [facility] No
--- NOTE | 2019-03-30 09:32 | EKG ---
Test Reason : Blood Pressure : / mmHG Vent. Rate : 074 BPM Atrial Rate : 074 BPM P-R Int : 132 ms QRS Dur : 102 ms QT Int : 414 ms P-R-T Axes : 063 075 057 degrees QTc Int : 459 ms SINUS RHYTHM WITH MARKED SINUS ARRHYTHMIA WHEN COMPARED WITH ECG OF 16-FEB-2019 11:04, VENT. RATE HAS DECREASED BY 39 BPM Confirmed by RUBÉN MAGANA MD ([id number]) on 03/30/2019 9:32:50 AM Referred By: Confirmed By:RUBÉN MAGANA MD
[2019-03-30] MEDS ORDERED: predniSONE 20 MG TABLET (UD) PO SCH (10:00)
[2019-03-30] MEDS ORDERED: predniSONE 20 MG TABLET (UD) ONE (10:11)
[2019-03-30] MEDS ORDERED: METHOCARBAMOL PO PRN (14:57)
[2019-03-30] MEDS ORDERED: [UNRECOGNIZED DRUG - REMARK] NS SCH (15:00)
[2019-03-30] MEDS ORDERED: ALBUTEROL SO4 2.5/IPRATROPIUM 0.5 INH SOL 3 ML VIAL.NEB. NEB PRN (17:39)
[2019-03-30] MEDS ORDERED: methylPREDNISolone NA SUCC 40 MG/1 ML VIAL IVPUSH SCH (18:00)
--- NOTE | 2019-03-30 18:02 | PN ---
Progress Note (short form) - Note Progress Note: PULMONARY CONSULTATION DICTATED 03/30/19 IMP ACUTE RESPIRATORY DISTRESS ACUTE ASTHMA EXACERBATION BRONCHIECTASIS PA IV STEROIDS INHALED BRONCHODILATORS PEAK FLOW COUGH MEDS IGE LEVEL OUTPATIENT [id number] LEVEL OUTPATIENT PFTS OUTPATIENT ABG DR HERR Problem List - Problems (1) Asthma exacerbation Code(s): J45.901 - UNSPECIFIED ASTHMA WITH (ACUTE) EXACERBATION Qualifiers: Asthma severity: unspecified severity Asthma persistence: unspecified Qualified Code(s): J45.901 - Unspecified asthma with (acute) exacerbation (2) Bronchiectasis Code(s): J47.9 - BRONCHIECTASIS, UNCOMPLICATED (3) Seasonal allergies Code(s): J30.2 - OTHER SEASONAL ALLERGIC RHINITIS
[2019-03-30] MEDS: ALBUTEROL SO4 0.083% IH SOL 2.5 MG/3 ML VIAL.NEB. NEB PRN (18:21)
--- NOTE | 2019-03-30 20:02 | CONS ---
PULMONARY CONSULTATION DATE OF CONSULTATION: 03/30/2019 REFERRING PHYSICIAN: Tamela Wiley MD The patient is a 33-year-old black male with past medical history of asthma and longstanding history of tobacco use, quit a few weeks ago, admitted to [facility] with complaint of 3-day history of increasing shortness of breath, cough, and chest congestion. Patient states he was doing relatively well until 3 days prior to this when he started developing increasing shortness of breath and cough. Apparently, used his inhaler without any improvement. His symptoms continued to worsen, at which time, he presented to the emergency room. In the emergency room, he was noted to be in respiratory distress. He was started on prednisone and inhaled bronchodilators with some improvement, transferred to the medical floor for further management. Of note is he was recently admitted on February 19, for asthma exacerbation. At that time, he underwent a CTA of the chest which revealed evidence of bronchiectatic changes in the lower lobes. He was treated with steroids with good clinical response. Patient denies any recent travel. There is no history of occupational exposure to chemicals or fumes. PAST MEDICAL HISTORY: Again includes asthma. SOCIAL HISTORY: Born in [place], moved to the [place] a few years ago. 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 CURRENT MEDICATIONS: Include Robaxin, budesonide, Rhinocort, Solu-Medrol, and DuoNeb. REVIEW OF SYSTEMS: Positive shortness of breath. Positive cough. Positive orthopnea. No chest pain. No palpitations. No fever. No chills. No hemoptysis. No abdominal pain. PHYSICAL EXAMINATION: General: The patient is a thin male, awake, alert, dyspneic. Vital Signs: Currently afebrile. Heart rate is 92. Blood pressure is 119/61. Respiratory rate is 20. O2 saturation is 95% on 4 L. HEENT: Normocephalic, atraumatic. Neck: Supple. Heart: Regular. S1, S2. Chest: Diffuse bilateral wheezes. Abdomen: Soft. Bowel sounds are positive. Extremities: No cyanosis or edema. LABORATORY DATA: WBC is 9.9, hemoglobin 13.8, hematocrit 41.2, with a platelet count of 255,000. BUN 11, creatinine 1.0. Chest x-ray: No infiltrates. No effusion. IMPRESSION: Acute respiratory distress secondary to acute asthma exacerbation, possibly secondary to upper respiratory infection. PLAN: IV steroids, inhaled bronchodilators, supplemental O2. Monitor peak flow. Check arterial blood gas. PFTs as an outpatient. Serum Ig level as an outpatient. An alpha-1 antitrypsin level,IGE level as an outpatient. Cough medications. FLACA HERR M.D. [id number] MTDD
[2019-03-30] MEDS: methylPREDNISolone NA SUCC 40 MG/1 ML VIAL IVPUSH SCH (21:00)
[2019-03-30] MEDS: guaiFENesin/CODEINE 5 ML UNIT-DOSE CUPS PO PRN (21:41)
[2019-03-30] MEDS ORDERED: [UNRECOGNIZED DRUG - REMARK] NS SCH (22:00)
[2019-03-31] MEDS: ALBUTEROL SO4 0.083% IH SOL 2.5 MG/3 ML VIAL.NEB. NEB PRN (02:02)
[2019-03-31] MEDS: methylPREDNISolone NA SUCC 40 MG/1 ML VIAL IVPUSH SCH ×2 (02:02→17:41)
[2019-03-31] MEDS: guaiFENesin/CODEINE 5 ML UNIT-DOSE CUPS PO PRN ×2 (06:08→15:01)
--- NOTE | 2019-03-31 08:44 | PN ---
Progress Note, Physician Chief Complaint: SOB after running out of bronchodilators at home History of Present Illness: 33 year old male with Pmhx of asthma, present with sob/cough for past three days patient attempted to use rescue inhaler without any relief. Patient recent admission was 02/16-02/19 for asthma/ bronchiectasis. Patient at this time denies cp/headache/dizziness/ fever/chills/ N&V/diarrhea and constipation. - Current Medication List Current Medications: Active Medications Albuterol Sulfate (Ventolin 0.083% Nebulizer Soln -) 1 amp NEB Q4H PRN PRN Reason: SHORT OF BREATH/WHEEZING Last Admin: 03/31/19 02:02 Dose: 1 amp Albuterol/Ipratropium (Duoneb -) 1 amp NEB RQID SANTIAGO Last Admin: 03/30/19 19:40 Dose: 1 amp Guaifenesin/Codeine Phosphate (Robitussin Ac -) 10 ml PO Q8H PRN PRN Reason: COUGH Last Admin: 03/31/19 06:08 Dose: 10 ml Methylprednisolone Sodium Succinate (Solu-Medrol -) 60 mg IVPUSH Q6H-IV SANTIAGO Non-Formulary Medication (Methocarbamol [Robaxin -]) 500 mg PO TID PRN PRN Reason: shoulder pain Non-Formulary Medication (Budesonide [Rhinocort Allergy]) 2 spray NS BID SANTIAGO - Objective Vital Signs: Vital Signs Temperature 97.6 F 03/31/19 06:01 Pulse Rate 89 03/31/19 06:01 Respiratory Rate 20 03/31/19 06:01 Blood Pressure 134/61 03/31/19 06:01 O2 Sat by Pulse Oximetry (%) 97 03/30/19 21:00 Constitutional: Yes: Well Nourished, No Distress, Calm Eyes: Yes: WNL, Conjunctiva Clear, EOM Intact HENT: Yes: WNL, Atraumatic, Normocephalic Neck: Yes: WNL, Supple, Trachea Midline Cardiovascular: Yes: WNL, Regular Rate and Rhythm Respiratory: Yes: WNL, Regular, Diminished (at bases, no wheezing today) Gastrointestinal: Yes: WNL, Normal Bowel Sounds, Soft ...Rectal Exam: Yes: Deferred Genitourinary: Yes: WNL Extremities: Yes: WNL Edema: No Peripheral Pulses WNL: Yes Integumentary: Yes: WNL Neurological: Yes: WNL, Alert, Oriented ...Motor Strength: WNL Psychiatric: Yes: WNL, Alert, Oriented Labs: CBC, BMP 03/30/19 05:50 03/30/19 05:50 Problem List - Problems (1) Prophylactic measure Assessment/Plan: FEN regular diet monitor electrolytes DVT ambulatory Dispo continue as in patient full code discharge planning Code(s): Z29.9 - ENCOUNTER FOR PROPHYLACTIC MEASURES, UNSPECIFIED (2) Asthma exacerbation Assessment/Plan: DUo nebs/ magnesium and Solumedrol 125mg x 1 given in Ed with significant improvement Presnidone 40mg PO started and then change to IV steroids pulmonary consultion appreciated as per pulmonary decreased medrol to 40mg q8h, can likely change to PO prednisone 40mg daily in AM and taper as outpt - will need outpt work up including PFTs, sputum culture, IgE level, aspergillus Ab, quantitative immunoglobulins, COLE screen, cystic fibrosis screening, alpha anti trypsin 1 level Code(s): J45.901 - UNSPECIFIED ASTHMA WITH (ACUTE) EXACERBATION Qualifiers: Asthma severity: unspecified severity Asthma persistence: unspecified Qualified Code(s): J45.901 - Unspecified asthma with (acute) exacerbation (3) Bronchiectasis Code(s): J47.9 - BRONCHIECTASIS, UNCOMPLICATED Visit type - Emergency Visit Emergency Visit: Yes ED Registration Date: 03/30/19 Care time: The patient presented to the Emergency Department on the above date and was hospitalized for further evaluation of their emergent condition. - New Patient This patient is new to me today: No - Critical Care Critical Care patient: No - Discharge Referral [facility]erred to [facility] P.C[facility] No
[2019-03-31] MEDS: ALBUTEROL SO4 2.5/IPRATROPIUM 0.5 INH SOL 3 ML VIAL.NEB. NEB SCH ×4 (08:51→19:55)
[2019-03-31] MEDS ORDERED: methylPREDNISolone NA SUCC 40 MG/1 ML VIAL IVPUSH SCH (09:00)
[2019-03-31] MEDS ORDERED: predniSONE 20 MG TABLET (UD) PO SCH (10:00)
--- NOTE | 2019-03-31 10:16 | PN ---
Progress Note (short form) - Note Progress Note: PULMONARY Denies shortness of breath, cough or wheezing. No fevers or chills. Vital Signs Period Temp Pulse Resp BP Sys/New Pulse Ox Last 24 Hr 97.6 F-98.8 F 71-100 18-20 117-147/61-85 95-97 Gen: NAD at rest Heart: RRR Lung: distant breath sounds, no wheezes Abd: soft, nontender Ext: no edema CBC, BMP 03/30/19 05:50 03/30/19 05:50 Active Medications Albuterol Sulfate (Ventolin 0.083% Nebulizer Soln -) 1 amp NEB Q4H PRN PRN Reason: SHORT OF BREATH/WHEEZING Last Admin: 03/31/19 02:02 Dose: 1 amp Albuterol/Ipratropium (Duoneb -) 1 amp NEB RQID SANTIAGO Last Admin: 03/31/19 08:51 Dose: 1 amp Guaifenesin/Codeine Phosphate (Robitussin Ac -) 10 ml PO Q8H PRN PRN Reason: COUGH Last Admin: 03/31/19 06:08 Dose: 10 ml Methylprednisolone Sodium Succinate (Solu-Medrol -) 60 mg IVPUSH Q6H-IV SANTIAGO Last Admin: 03/31/19 09:07 Dose: 60 mg Non-Formulary Medication (Methocarbamol [Robaxin -]) 500 mg PO TID PRN PRN Reason: shoulder pain Non-Formulary Medication (Budesonide [Rhinocort Allergy]) 2 spray NS BID SANTIAGO A/P Acute Asthma Exacerbation Bronchiectasis - will decrease medrol to 40mg q8h, can likely change to PO prednisone 40mg daily in AM and taper as outpt - will need outpt work up including PFTs, sputum culture, IgE level, aspergillus Ab, quantitative immunoglobulins, COLE screen, cystic fibrosis screening, alpha anti trypsin 1 level
[2019-04-01] MEDS: guaiFENesin/CODEINE 5 ML UNIT-DOSE CUPS PO PRN ×2 (01:14→16:52)
[2019-04-01] MEDS: methylPREDNISolone NA SUCC 40 MG/1 ML VIAL IVPUSH SCH ×2 (01:14→09:31)
[2019-04-01] MEDS: ALBUTEROL SO4 0.083% IH SOL 2.5 MG/3 ML VIAL.NEB. NEB PRN (06:44)
[2019-04-01] MEDS: ALBUTEROL SO4 2.5/IPRATROPIUM 0.5 INH SOL 3 ML VIAL.NEB. NEB SCH ×3 (07:45→16:02)
--- NOTE | 2019-04-01 08:06 | PN ---
Progress Note, Physician Chief Complaint: SOB after running out of bronchodilators at home History of Present Illness: 33 year old male with Pmhx of asthma, present with sob/cough for past three days patient attempted to use rescue inhaler without any relief. Patient recent admission was 02/16-02/19 for asthma/ bronchiectasis. Patient at this time denies cp/headache/dizziness/ fever/chills/ N&V/diarrhea and constipation. - Current Medication List Current Medications: Active Medications Albuterol Sulfate (Ventolin 0.083% Nebulizer Soln -) 1 amp NEB Q4H PRN PRN Reason: SHORT OF BREATH/WHEEZING Last Admin: 04/01/19 06:44 Dose: 1 amp Albuterol/Ipratropium (Duoneb -) 1 amp NEB RQID SANTIAGO Last Admin: 03/31/19 19:55 Dose: 1 amp Guaifenesin/Codeine Phosphate (Robitussin Ac -) 10 ml PO Q8H PRN PRN Reason: COUGH Last Admin: 04/01/19 01:14 Dose: 10 ml Methylprednisolone Sodium Succinate (Solu-Medrol -) 40 mg IVPUSH Q8H-IV SANTIAGO Last Admin: 04/01/19 01:14 Dose: 40 mg Non-Formulary Medication (Methocarbamol [Robaxin -]) 500 mg PO TID PRN PRN Reason: shoulder pain Non-Formulary Medication (Budesonide [Rhinocort Allergy]) 2 spray NS BID SANTIAGO - Objective Vital Signs: Vital Signs Temperature 97.3 F L 04/01/19 05:30 Pulse Rate 81 04/01/19 05:30 Respiratory Rate 20 04/01/19 05:30 Blood Pressure 137/79 04/01/19 05:30 O2 Sat by Pulse Oximetry (%) 95 03/31/19 21:00 Labs: CBC, BMP 03/30/19 05:50 03/30/19 05:50 Problem List - Problems (1) Prophylactic measure Code(s): Z29.9 - ENCOUNTER FOR PROPHYLACTIC MEASURES, UNSPECIFIED (2) Asthma exacerbation Code(s): J45.901 - UNSPECIFIED ASTHMA WITH (ACUTE) EXACERBATION Qualifiers: Asthma severity: unspecified severity Asthma persistence: unspecified Qualified Code(s): J45.901 - Unspecified asthma with (acute) exacerbation (3) Bronchiectasis Code(s): J47.9 - BRONCHIECTASIS, UNCOMPLICATED
[2019-04-01 09:20] LABS: BASO % 0.5 % (0-2.0); EOS % 0.1 % (0-4.5); HEMATOCRIT 45.9 % (35.4-49); LYMPH % 9.8 % (8-40); MCH 28.3 pg (25.7-33.7); MCHC 32.7 g/dl (32.0-35.9); MEAN CELL VOLUME 86.4 fl (80-96); MEAN PLT VOLUME 8.2 fl (7.5-11.1); MONO % 2.8 % (3.8-10.2); NEUT % 86.8 % (42.8-82.8); PLATELET COUNT 290 K/MM3 (134-434); RBC 5.31 M/mm3 (4.00-5.60)
[2019-04-01 09:59] LABS: ALBUMIN 3.5 g/dl (3.4-5.0); BILIRUBIN,TOTAL 0.3 mg/dL (0.2-1); BLOOD UREA NITROGEN 18.8 mg/dL (7-18); CALCIUM 9.1 mg/dL (8.5-10.1); CREATININE 0.9 mg/dL (0.55-1.3); MAGNESIUM 2.6 mg/dL (1.8-2.4); POTASSIUM 4.5 mmol/L (3.5-5.1); TOT PROT 7.4 g/dl (6.4-8.2)
[2019-04-01 13:56] VITALS: BP 131/73; PULSE 87; TEMP 98
--- NOTE | 2019-04-01 13:56 | PN ---
Progress Note (short form) - Note Progress Note: PULMONARY Denies shortness of breath, cough or wheezing. Vital Signs Period Temp Pulse Resp BP Sys/New Pulse Ox Last 24 Hr 97.3 F-98.9 F 81-86 18-20 121-137/73-79 95-95 Gen: NAD at rest Heart: RRR Lung: distant breath sounds, no wheezes Abd: soft, nontender Ext: no edema CBC, BMP 04/01/19 08:45 04/01/19 08:45 Active Medications Albuterol Sulfate (Ventolin 0.083% Nebulizer Soln -) 1 amp NEB Q4H PRN PRN Reason: SHORT OF BREATH/WHEEZING Last Admin: 04/01/19 06:44 Dose: 1 amp Albuterol/Ipratropium (Duoneb -) 1 amp NEB RQID SANTIAGO Last Admin: 04/01/19 11:06 Dose: 1 amp Guaifenesin/Codeine Phosphate (Robitussin Ac -) 10 ml PO Q8H PRN PRN Reason: COUGH Last Admin: 04/01/19 01:14 Dose: 10 ml Non-Formulary Medication (Methocarbamol [Robaxin -]) 500 mg PO TID PRN PRN Reason: shoulder pain Non-Formulary Medication (Budesonide [Rhinocort Allergy]) 2 spray NS BID SANTIAGO Prednisone (Deltasone -) 40 mg PO DAILY SANTIAGO A/P Acute Asthma Exacerbation Bronchiectasis - inhaled bronchodilators - prednisone taper - will need outpt work up including PFTs, sputum culture, IgE level, aspergillus Ab, quantitative immunoglobulins, COLE screen, cystic fibrosis screening, alpha anti trypsin 1 level
--- NOTE | 2019-04-01 17:15 | DS ---
Physical Examination Vital Signs: Vital Signs Temperature 98.0 F 04/01/19 13:55 Pulse Rate 87 04/01/19 13:55 Respiratory Rate 18 04/01/19 13:55 Blood Pressure 131/73 04/01/19 13:55 O2 Sat by Pulse Oximetry (%) 95 04/01/19 09:00 Constitutional: Yes: Well Nourished, No Distress, Calm Eyes: Yes: WNL, Conjunctiva Clear, EOM Intact HENT: Yes: WNL, Atraumatic, Normocephalic Neck: Yes: WNL, Supple, Trachea Midline Cardiovascular: Yes: WNL, Regular Rate and Rhythm Respiratory: Yes: WNL, Regular, CTA Bilaterally Gastrointestinal: Yes: WNL, Normal Bowel Sounds, Soft ...Rectal Exam: Yes: Deferred Renal/: Yes: WNL Breast(s): Yes: WNL Musculoskeletal: Yes: WNL Extremities: Yes: WNL Edema: No Peripheral Pulses WNL: Yes Neurological: Yes: WNL, Alert, Oriented ...Motor Strength: WNL Psychiatric: Yes: WNL, Alert, Oriented Labs: CBC, BMP 04/01/19 08:45 04/01/19 08:45 Discharge Summary Reason For Visit: EXACERBATION OF ASHTMA Current Active Problems Asthma exacerbation (Acute) Prophylactic measure (Acute) Hospital Course: Problem List - Problems (1) Prophylactic measure Assessment/Plan: FEN regular diet DVT ambulatory (2) Asthma exacerbation Assessment/Plan: DUo nebs/ magnesium and Solumedrol 125mg x 1 given in Ed with significant improvement Started on IV seteroids and changed to po prednisone after significant improvement. PO prednisone 40mg daily in AM and taper as outpt - will need outpt work up including PFTs, sputum culture, IgE level, aspergillus Ab, quantitative immunoglobulins, COLE screen, cystic fibrosis screening, alpha anti trypsin 1 level - Instructions Diet, Activity, Other Instructions: PREDNISONE TAPER 7/3 40 mg (4- 10mg tablets) 7/4 40 mg (4- 10mg tablets) 7/5 40 mg (4- 10mg tablets) 7/6 30 mg (3- 10mg tablets) 7/7 30 mg (3- 10mg tablets) 7/8 30 mg (3- 10mg tablets) 7/9 20 mg (2- 10mg tablets) 7/10 20 mg (2- 10mg tablets) 7/11 20 mg (2- 10mg tablets) 7/12 10 mg (1- 10mg tablets) 7/13 10 mg (1- 10mg tablets) 7/14 10 mg (1- 10mg tablets) 7/15 5 mg (1/2- 10mg tablets) 0 - Home Medications Comprehensive Discharge Medication List: Ambulatory Orders Budesonide [Rhinocort Allergy] 1 spray NS ONCE #1 spray.pump 03/26/18 Cetirizine HCl/Pseudoephedrine [Zyrtec-D Tablet] 1 each PO DAILY #30 tab.er.12h 03/26/18 Ibuprofen 800 mg PO Q8H PRN #20 tablet 02/16/19 Methocarbamol [Robaxin -] 500 mg PO TID PRN #21 tablet 02/16/19 Prednisone 10 mg PO ASDIR #30 tablet 04/01/19 This patient is new to me today: No Emergency Visit: Yes ED Registration Date: 03/30/19 Care time: The patient presented to the Emergency Department on the above date and was hospitalized for further evaluation of their emergent condition. Critical Care patient: No - Discharge Referral Referred to [facility] Med P.C.: No
[2019-04-02] MEDS ORDERED: predniSONE 20 MG TABLET (UD) PO SCH (10:00)
== END 2019-04-01 17:49 | disposition home or self-care (01) | DRG 141 ==
LOC: JER 01:37 → JERBED 04:45 → J7W 17:03
PROVIDERS: ADMIT Internal Medicine; ATTEND Nurse Practitioner Acute Care
PROC: 3E0F7GC Introduction of Other Therapeutic Substance into Respiratory Tract, Via Natural or Artificial Opening (ICD-10-PCS; principal; 2019-03-30)
DX: J45.901 Unspecified asthma with (acute) exacerbation (principal); J47.9 Bronchiectasis, uncomplicated; F17.210 Nicotine dependence, cigarettes, uncomplicated; J30.2 Other seasonal allergic rhinitis
CPT/HCPCS: 36415; 71045-TC-FY; 80053; 83735; 85025; 93005; 93010; 94640; 94664; 99284-25; J7030

== ENCOUNTER 2019-09-01 17:10 | Emergency (ER) | payer OTHER ==
[2019-09-01 17:47] VITALS: BP 128/92; PULSE 67; TEMP 98.4; BMI 26.9
--- NOTE | 2019-09-01 17:47 | PDOC ---
Rapid Medical Evaluation Time Seen by Provider: 09/01/19 17:43 Medical Evaluation: Allergies Allergy/AdvReac Type Severity Reaction Status Date / Time ketorolac [From Toradol] Allergy Verified 09/01/19 17:43 09/01/19 17:46 Pt c/o: sinus congestion, unable to breathe via nares, mild cough Pt on brief exam: nasal voice, no visable drainage Pt ordered for: none Pt to proceed to the ED Discharge Disposition - Diagnosis Nasal congestion, Nausea & vomiting - Discharge Dispostion Disposition: HOME Condition at time of disposition: Stable - Prescriptions Prescriptions: Ondansetron HCl [Zofran] 4 mg PO PRN 10 Days #10 tablet - Referrals Referrals: Bakari Whitt DO [Staff Physician] - Chance House MD [Staff Physician] - Benson Curtis MD [Staff Physician] - - Patient Instructions Printed Discharge Instructions: DI for Nausea -- Adult, DI for Vomiting -- Adult Additional Instructions: You came into the ER with abdominal pain, nausea, and vomiting. We gave you some medications which made you feel better. We are sending an anti-vomiting medication to your pharmacy - please make sure to go and pick it up at your local [facility] pharmacy. Please call one of the stomach doctors we are referring you to and schedule a follow up appointment in the next 5 to 10 days. Come back to the ER immediately if you can't stop vomiting, have abdominal pain or any other new or worsening concerns. Thank you for coming to the [facility] ER. We hope you feel better soon! Print Language: CAMBODIAN - Post Discharge Activity
--- NOTE | 2019-09-01 19:18 | PDOC ---
History of Present Illness - General Chief Complaint: Nausea/Vomiting Stated Complaint: VOMITING/HEADACHE Time Seen by Provider: 09/01/19 17:43 - History of Present Illness Initial Comments: 09/01/19 20:06 33 yo M PMH asthma, former smoker (quit 8 months ago), presenting with 2 weeks of N/V. States that he has been able to keep down food and liquid, and there seems to be no association, but he will sporadically get nauseous and vomit multiple times a day. Usually, this will involve significant amounts of coughing followed by emesis. He also complains of sporadic frontal headache over the same time frame which is not time-associated with his N/V. He also complains of nasal congestion and URI symptoms. Specifically denies CP, SOB, fevers/chills, constipation/diarrhea. Past History - Past Medical History Allergies/Adverse Reactions: Allergies Allergy/AdvReac Type Severity Reaction Status Date / Time ketorolac [From Toradol] Allergy Verified 09/01/19 17:43 Home Medications: Ambulatory Orders Budesonide [Rhinocort Allergy] 1 spray NS ONCE #1 spray.pump 03/26/18 Cetirizine HCl/Pseudoephedrine [Zyrtec-D Tablet] 1 each PO DAILY #30 tab.er.12h 03/26/18 Ibuprofen 800 mg PO Q8H PRN #20 tablet 02/16/19 Methocarbamol [Robaxin -] 500 mg PO TID PRN #21 tablet 02/16/19 Prednisone 10 mg PO ASDIR #30 tablet 04/01/19 Ondansetron HCl [Zofran] 4 mg PO PRN 10 Days #10 tablet 09/01/19 Anemia: No Asthma: Yes Cancer: No Cardiac Disorders: No CVA: No COPD: No CHF: No Dementia: No Diabetes: No GI Disorders: No Disorders: No HTN: No Hypercholesterolemia: No Liver Disease: No Seizures: No Thyroid Disease: No - Surgical History Abdominal Surgery: No Appendectomy: No Cardiac Surgery: No Cholecystectomy: No Lung Surgery: No Neurologic Surgery: No Orthopedic Surgery: No - Immunization History Immunization Up to Date: (unknown) - Psycho Social/Smoking Cessation Hx Smoking History: Never smoked Have you smoked in the past 12 months: Yes Number of Cigarettes Smoked Daily: 6 'Breaking Loose' booklet given: 07/01/19 Hx Alcohol Use: No Drug/Substance Use Hx: No Substance Use Type: None Hx Substance Use Treatment: No *Physical Exam - Vital Signs Last Vital Signs Temp Pulse Resp BP Pulse Ox 98.4 F 67 18 128/92 99 09/01/19 17:44 09/01/19 17:44 09/01/19 17:44 09/01/19 17:44 09/01/19 17:44 ED Treatment Course - LABORATORY CBC & Chemistry Diagram: 09/01/19 21:00 09/01/19 21:00 Discharge - Discharge Information Problems reviewed: Yes Clinical Impression/Diagnosis: Nasal congestion Nausea & vomiting Qualifiers: Vomiting type: unspecified Vomiting Intractability: unspecified Qualified Code( s): R11.2 - Nausea with vomiting, unspecified Condition: Stable Disposition: HOME - Additional Discharge Information Prescriptions: Ondansetron HCl [Zofran] 4 mg PO PRN 10 Days #10 tablet - Follow up/Referral Referrals: Bakari Whitt DO [Staff Physician] - Chance House MD [Staff Physician] - Benson Curtis MD [Staff Physician] - - Patient Discharge Instructions Patient Printed Discharge Instructions: DI for Nausea -- Adult, DI for Vomiting -- Adult Additional Instructions: You came into the ER with abdominal pain, nausea, and vomiting. We gave you some medications which made you feel better. We are sending an anti-vomiting medication to your pharmacy - please make sure to go and pick it up at your local [facility] pharmacy. Please call one of the stomach doctors we are referring you to and schedule a follow up appointment in the next 5 to 10 days. Come back to the ER immediately if you can't stop vomiting, have abdominal pain or any other new or worsening concerns. Thank you for coming to the [facility] ER. We hope you feel better soon! Print Language: HUNGARIAN - Post Discharge Activity
[2019-09-01 21:20] LABS: BASO % 0.8 % (0-2.0); EOS % 4.2 % (0-4.5); HEMATOCRIT 44.7 % (35.4-49); HEMOGLOBIN 14.7 GM/dL (11.7-16.9); LYMPH % 35.6 % (8-40); MCH 28.1 pg (25.7-33.7); MCHC 32.8 g/dl (32.0-35.9); MEAN CELL VOLUME 85.7 fl (80-96); MEAN PLT VOLUME 7.6 fl (7.5-11.1); MONO % 9.7 % (3.8-10.2); NEUT % 49.7 % (42.8-82.8); PLATELET COUNT 248 K/MM3 (134-434); RBC 5.21 M/mm3 (4.00-5.60); RDW 15.1 % (11.9-15.9); WHITE BLOOD COUNT 6.5 K/mm3 (4.0-10.0)
[2019-09-01 22:15] LABS: ALBUMIN 3.5 g/dl (3.4-5.0); BILIRUBIN,TOTAL 0.3 mg/dL (0.2-1); BLOOD UREA NITROGEN 11.8 mg/dL (7-18); CALCIUM 8.6 mg/dL (8.5-10.1); CREATININE 0.9 mg/dL (0.55-1.3); POTASSIUM 4.7 mmol/L (3.5-5.1)
[2019-09-01] MEDS ORDERED: ONDANSETRON 4 MG/2 ML VIAL IVPUSH ONE (22:53)
--- NOTE | 2019-09-01 22:56 | PDOC ---
*Physical Exam - Vital Signs Last Vital Signs Temp Pulse Resp BP Pulse Ox 98.4 F 67 18 128/92 99 09/01/19 17:44 09/01/19 17:44 09/01/19 17:44 09/01/19 17:44 09/01/19 17:44 - Physical Exam General Appearance: Yes: Nourished, Appropriately Dressed. No: Apparent Distress HEENT: positive: Normal ENT Inspection, Normal Voice, Muffled/Hoarse voice Neck: positive: Supple Respiratory/Chest: positive: Lungs Clear, Normal Breath Sounds Cardiovascular: positive: Regular Rhythm, Regular Rate, S1, S2 Vascular Pulses: Dorsalis-Pedis (R): 2+, Doralis-Pedis (L): 2+ Gastrointestinal/Abdominal: positive: Soft. negative: Tender, Distended, Guarding, Rebound Rectal Exam: positive: deferred Lymphatic: negative: Adenopathy Musculoskeletal: positive: Normal Inspection. negative: CVA Tenderness Extremity: positive: Normal Capillary Refill, Normal Inspection, Normal Range of Motion Integumentary: positive: Normal Color, Dry, Warm Neurologic: positive: administrative operations coordinator II-XII NML intact, Fully Oriented, Alert, Normal Mood/ Affect ED Treatment Course - LABORATORY CBC & Chemistry Diagram: 09/01/19 21:00 09/01/19 21:00 - ADDITIONAL ORDERS Additional order review: Laboratory Results 09/01/19 09/01/19 21:00 21:00 Sodium 141 Potassium 4.7 Chloride 108 H Carbon Dioxide 28 Anion Gap 5 L BUN 11.8 Creatinine 0.9 Est GFR (CKD-EPI)AfAm 130.52 Est GFR (CKD-EPI)NonAf 112.62 Random Glucose 85 Calcium 8.6 Total Bilirubin 0.3 AST 23 ALT 23 Alkaline Phosphatase 55 Total Protein 7.0 Albumin 3.5 Lipase 68 L 09/01/19 21:00 RBC 5.21 MCV 85.7 MCHC 32.8 RDW 15.1 MPV 7.6 Neutrophils % 49.7 D Lymphocytes % 35.6 D Monocytes % 9.7 D Eosinophils % 4.2 D Basophils % 0.8 Medical Decision Making - Medical Decision Making Linsey is a 33 yo M who was signed out to me from Dr. Gtz pending a CMP and re-assessment CMP Sodium 141 mmol/L (136-145) 09/01/19 21:00 Potassium 4.7 mmol/L (3.5-5.1) 09/01/19 21:00 Chloride 108 mmol/L (98-107) H 09/01/19 21:00 Carbon Dioxide 28 mmol/L (21-32) 09/01/19 21:00 Anion Gap 5 MMOL/L (8-16) L 09/01/19 21:00 BUN 11.8 mg/dL (7-18) 09/01/19 21:00 Creatinine 0.9 mg/dL (0.55-1.3) 09/01/19 21:00 Est GFR (CKD-EPI)AfAm 130.52 09/01/19 21:00 Est GFR (CKD-EPI)NonAf 112.62 09/01/19 21:00 Random Glucose 85 mg/dL (74-106) 09/01/19 21:00 Calcium 8.6 mg/dL (8.5-10.1) 09/01/19 21:00 Total Bilirubin 0.3 mg/dL (0.2-1) 09/01/19 21:00 AST 23 U/L (15-37) 09/01/19 21:00 ALT 23 U/L (13-61) 09/01/19 21:00 Alkaline Phosphatase 55 U/L (45-117) 09/01/19 21:00 Total Protein 7.0 g/dl (6.4-8.2) 09/01/19 21:00 Albumin 3.5 g/dl (3.4-5.0) 09/01/19 21:00 Lipase 68 U/L (73-393) L 09/01/19 21:00 - Labs unremarkable Re-assessment: Patient endorses a significant amount of nausea but no other complaints at the present time Plan: Zofran, EKG, DC EKG: QTc - 430. Benign early repol diffusely, no change in EKG compared to March of 2019 Dispo: Home with GI fu and script for zofran Discharge - Discharge Information Problems reviewed: Yes Clinical Impression/Diagnosis: Nasal congestion Nausea & vomiting Qualifiers: Vomiting type: unspecified Vomiting Intractability: unspecified Qualified Code( s): R11.2 - Nausea with vomiting, unspecified Condition: Stable Disposition: HOME - Admission No - Additional Discharge Information Prescriptions: Ondansetron HCl [Zofran] 4 mg PO PRN 10 Days #10 tablet - Follow up/Referral Referrals: Chance House MD [Staff Physician] - Benson Curtis MD [Staff Physician] - Bakari Whitt DO [Staff Physician] - - Patient Discharge Instructions Patient Printed Discharge Instructions: DI for Nausea -- Adult, DI for Vomiting -- Adult Additional Instructions: You came into the ER with abdominal pain, nausea, and vomiting. We gave you some medications which made you feel better. We are sending an anti-vomiting medication to your pharmacy - please make sure to go and pick it up at your local [facility] pharmacy. Please call one of the stomach doctors we are referring you to and schedule a follow up appointment in the next 5 to 10 days. Come back to the ER immediately if you can't stop vomiting, have abdominal pain or any other new or worsening concerns. Thank you for coming to the [facility] ER. We hope you feel better soon! Print Language: LITHUANIAN - Post Discharge Activity
--- NOTE | 2019-09-01 23:22 | PDOC ---
Documentation entered by Ronnie Lowery SCRIBE, acting as scribe for Mary Baumann MD. Mary Baumann MD: This documentation has been prepared by the Sebastián sofia Xhesika, SCRIBE, under my direction and personally reviewed by me in its entirety. I confirm that the documentation accurately reflects all work, treatment, procedures, and medical decision making performed by me. Attending Attestation - Resident Resident Name: Bridget Gtz - ED Attending Attestation I have performed the following: I have examined & evaluated the patient, The case was reviewed & discussed with the resident, I agree w/resident's findings & plan, Exceptions are as noted - HPI HPI: 09/01/19 19:58 The patient is a 33 year old male with a significant PMH of asthma who presents to the emergency department for 2 weeks of nausea. Patient reports congestion and multiple episodes of vomiting only associated with cough. Pt notes he took nausea medication (does not know the name of medication) that was prescribed to him at his outpatient clinic with no relief of symptoms, which prompted his arrival to the ED. The patient denies chest pain, shortness of breath, headache , dizziness, fever, chills, diarrhea and constipation. Denies dysuria, frequency , urgency and hematuria. Allergies: ketorolac - Physicial Exam PE: 09/01/19 22:36 GENERAL: Awake, alert, and fully oriented, in no acute distress LUNGS: Breath sounds equal, clear to auscultation bilaterally. No wheezes, and no crackles HEART: Regular rate and rhythm, normal S1 and S2, no murmurs, rubs or gallops ABDOMEN: Soft, nontender, normoactive bowel sounds. No guarding, no rebound. No masses EXTREMITIES: Normal range of motion, no edema. No clubbing or cyanosis. No cords, erythema, or tenderness NEUROLOGICAL: Cranial nerves II through XII grossly intact. SKIN: Warm, Dry, normal turgor, no rashes or lesions noted. - Medical Decision Making 09/01/19 [id number] male with past medical history significant for asthma presents with intermittent vomiting for the past 10 days. He states he vomited 6 times today. He denies any abdominal pain Past surgical history none Labs were evaluated and all his electrolytes are normal, he is not acidotic And his renal function is within normal limits He has no fever or chills or diarrhea He denies recent travel or sick contacts He has benign abdominal exam 09/01/19 23:46 todays's ekg is unchanged from his March 2019 ekg 09/01/19 23:47 imp gastritis plan GI referral and zofran eprescribed to his pharmacy
[2019-09-01] MEDS ORDERED: ONDANSETRON 4 MG/2 ML VIAL ONE (23:56)
--- NOTE | 2019-09-02 09:48 | EKG ---
Test Reason : Blood Pressure : / mmHG Vent. Rate : 062 BPM Atrial Rate : 062 BPM P-R Int : 130 ms QRS Dur : 090 ms QT Int : 424 ms P-R-T Axes : 039 069 058 degrees QTc Int : 430 ms NORMAL SINUS RHYTHM ST ELEVATION, CONSIDER EARLY REPOLARIZATION BORDERLINE ECG WHEN COMPARED WITH ECG OF 30-MAR-2019 04:41, NO SIGNIFICANT CHANGE WAS FOUND Confirmed by LIN HENDERSON, HELEN ([id number]) on 09/02/2019 9:48:47 AM Referred By: Confirmed By:HELEN CEBALLOS MD
== END 2019-09-02 00:54 | disposition home or self-care (01) ==
LOC: JER 17:10
PROC: 3E033GC Introduction of Other Therapeutic Substance into Peripheral Vein, Percutaneous Approach (ICD-10-PCS; principal; 2019-09-01)
DX: R09.81 Nasal congestion (principal); R11.2 Nausea with vomiting, unspecified; J45.909 Unspecified asthma, uncomplicated; Z87.891 Personal history of nicotine dependence; Z88.8 Allergy status to other drugs, medicaments and biological substances
CPT/HCPCS: 36415; 80053; 83690; 85025; 93005; 93010; 96374; 99283-25

== ENCOUNTER 2019-09-28 01:54 | Inpatient (IN) | payer OTHER ==
[2019-09-28] MEDS ORDERED: ALBUTEROL SO4 2.5/IPRATROPIUM 0.5 INH SOL 3 ML VIAL.NEB. NEB ONE ×2 (04:02→04:15)
[2019-09-28] MEDS ORDERED: SODIUM CHLORIDE 1,000 ML IV STA (04:02)
[2019-09-28] MEDS ORDERED: methylPREDNISolone NA SUCC 125 MG/2 ML VIAL IVPUSH ONE (04:03)
--- NOTE | 2019-09-28 04:05 | PDOC ---
History of Present Illness - General Chief Complaint: Respiratory Stated Complaint: COLD SYMPTOMS, ASTHMA,HEADACHE Time Seen by Provider: 09/28/19 04:03 - History of Present Illness Initial Comments: 09/28/19 04:43 33 year old man with a history of asthma on prednisone who presents with 2 days of of cough productive of phlegm, fatigue and shortness of breath worse today. The patient reports feeling chills but no recorded temperature. He denies any recent travel, denies chest pain, n/v/d/c, abdominal pain, dysuria, hematuria. He has no other complaints ROS GENERAL/CONSTITUTIONAL: + fever or chills. No weakness. HEAD, EYES, EARS, NOSE AND THROAT: No sore throat. CARDIOVASCULAR: No chest pain, + shortness of breath RESPIRATORY: + cough, wheezing, No hemoptysis. GASTROINTESTINAL: No nausea, vomiting, diarrhea or constipation. GENITOURINARY: No dysuria, frequency, or change in urination. MUSCULOSKELETAL: No joint or muscle swelling or pain. No neck or back pain. SKIN: No rash NEUROLOGIC: No headache, vertigo, loss of consciousness, or change in strength/ sensation. ENDOCRINE: No increased thirst. No abnormal weight change ALLERGIC/IMMUNOLOGIC: No hives or skin allergy. Initial Vital Signs Temp Pulse Resp BP Pulse Ox 101.3 F H 114 H 22 H 123/69 95 09/28/19 02:00 09/28/19 02:00 09/28/19 02:00 09/28/19 02:00 09/28/19 02:00 PE GENERAL: Awake, alert, and fully oriented, weak appearing and tachypneic HEAD: No signs of trauma, normocephalic, atraumatic EYES: EOMI, sclera anicteric, conjunctiva clear ENT: Moist mucosa NECK: Normal ROM, supple LUNGS: + tachypneic w/ diffuse expiratory wheeze HEART: tachycardic rate and sinus rhythm, normal S1 and S2, no murmurs, rubs or gallops, peripheral pulses normal and equal bilaterally. ABDOMEN: Soft, nontender, No guarding, no rebound. No masses EXTREMITIES : Normal inspection, Normal range of motion, no edema. No clubbing or cyanosis. NEUROLOGICAL: Cranial nerves II through XII grossly intact. Normal speech, no focal sensorimotor deficits SKIN: Warm, Dry, normal turgor, no rashes or lesions noted MDM DDX including but not limited to: asthma exacerbation vs flu vs pna ED Course: Patient tachypneic, weak, audible wheezing, warm to touch, febrile to 101.3 eval for infectious source of asthma exacerbation dounebs, steroids, tylenol, fluids sepsis workup CXR: with no obvious infiltrate UA- negative Flu A positive Patient completed duoneb, still with tachypnea and wheezes ill appearing Will admit for respiratory distress, asthma exacerbation w/ postiive flu Grace Tang, PGY2 Emergency Medicine Past History - Past Medical History Allergies/Adverse Reactions: Allergies Allergy/AdvReac Type Severity Reaction Status Date / Time ketorolac [From Toradol] Allergy Verified 09/28/19 04:07 Home Medications: Ambulatory Orders Budesonide [Rhinocort Allergy] 1 spray NS ONCE #1 spray.pump 03/26/18 Cetirizine HCl/Pseudoephedrine [Zyrtec-D Tablet] 1 each PO DAILY #30 tab.er.12h 03/26/18 Ibuprofen 800 mg PO Q8H PRN #20 tablet 02/16/19 Methocarbamol [Robaxin -] 500 mg PO TID PRN #21 tablet 02/16/19 Prednisone 10 mg PO ASDIR #30 tablet 04/01/19 Ondansetron HCl [Zofran] 4 mg PO PRN 10 Days #10 tablet 09/01/19 Anemia: No Asthma: Yes Cancer: No Cardiac Disorders: No CVA: No COPD: No CHF: No Dementia: No Diabetes: No GI Disorders: No Disorders: No HTN: No Hypercholesterolemia: No Liver Disease: No Seizures: No Thyroid Disease: No - Surgical History Abdominal Surgery: No Appendectomy: No Cardiac Surgery: No Cholecystectomy: No Lung Surgery: No Neurologic Surgery: No Orthopedic Surgery: No - Immunization History Immunization Up to Date: (unknown) - Psycho Social/Smoking Cessation Hx Smoking History: Never smoked Have you smoked in the past 12 months: Yes Number of Cigarettes Smoked Daily: 6 'Breaking Loose' booklet given: 03/30/19 Hx Alcohol Use: No Drug/Substance Use Hx: No Substance Use Type: None Hx Substance Use Treatment: No Vital Signs - Vital Signs #2 Time: 06:15 Pulse Rate: 120 Temperature: 99.4 F Temperature Source: Oral ED Treatment Course - LABORATORY CBC & Chemistry Diagram: 09/28/19 04:15 09/28/19 04:15 Discharge - Discharge Information Problems reviewed: Yes Clinical Impression/Diagnosis: Respiratory distress, Asthma exacerbation, Influenza A Condition: Fair - Admission Yes - Follow up/Referral - Patient Discharge Instructions - Post Discharge Activity
[2019-09-28] MEDS ORDERED: DEXAMETHASONE SOD PHOSPHATE 10 MG/1 ML VIAL ONE (04:15)
[2019-09-28] MEDS ORDERED: methylPREDNISolone NA SUCC 125 MG/2 ML VIAL ONE (04:18)
[2019-09-28] MEDS ORDERED: ACETAMINOPHEN 1000 MG/100 ML VIAL (NON FORMULARY) IVPB ONE (04:21)
[2019-09-28 04:43] LABS: BASO % 0.2 % (0-2.0); HEMATOCRIT 46.1 % (35.4-49); LYMPH % 10.5 % (8-40); MCHC 32.6 g/dl (32.0-35.9); MEAN CELL VOLUME 85.9 fl (80-96); MONO % 12.7 % (3.8-10.2); NEUT % 76.6 % (42.8-82.8); PLATELET COUNT 222 K/MM3 (134-434); RBC 5.37 M/mm3 (4.00-5.60); RDW 14.6 % (11.9-15.9); WHITE BLOOD COUNT 9.4 K/mm3 (4.0-10.0)
[2019-09-28] MEDS ORDERED: ACETAMINOPHEN INJECTION 100 ML IVPB ONE (04:48)
[2019-09-28 05:06] LABS: ALBUMIN 3.4 g/dl (3.4-5.0); BILIRUBIN,TOTAL 0.2 mg/dL (0.2-1); BLOOD UREA NITROGEN 13.5 mg/dL (7-18); CALCIUM 8.5 mg/dL (8.5-10.1); CREATININE 1.1 mg/dL (0.55-1.3); POTASSIUM 3.7 mmol/L (3.5-5.1)
[2019-09-28 05:08] LABS: URINE APPEARANCE CLOUDY; URINE BILIRUBIN NEGATIVE (NEGATIVE); URINE COLOR YELLOW; URINE GLUCOSE (UA) NEGATIVE (NEGATIVE); URINE KETONE NEGATIVE (NEGATIVE); URINE LEUK ESTERASE NEGATIVE (NEGATIVE); URINE NITRITE NEGATIVE (NEGATIVE); URINE PROTEIN NEGATIVE (NEGATIVE); URINE UROBILINOGEN 0.2 mg/dL (0.2-1.0)
[2019-09-28 05:30] LABS: ARTERIAL BLD GAS O2 SATURATION 98.5 % (95-98); ARTERIAL BLOOD GAS BASE EXCESS 1.4 meq/l (-2-2); ARTERIAL BLOOD GAS PCO2 44.6 mmHg (35-45); ARTERIAL BLOOD GAS pH 7.39 (7.35-7.45)
[2019-09-28 05:36] LABS: ARTERIAL BLOOD GAS PO2 144 mmHg (80-100)
[2019-09-28 05:38] LABS: CARBOXYHEMOGLOBIN < 0.5 % (0-2)
[2019-09-28 05:58] LABS: INR 1.23 (0.83-1.09); PROTHROMBIN TIME (PATIENT) 14.5 SEC (9.7-13.0)
[2019-09-28 06:01] LABS: ACTIVATED PTT 33.4 SECONDS (25.2-36.5)
--- NOTE | 2019-09-28 06:27 | PDOC ---
Attending Attestation - Resident Resident Name: Teja Tangie - ED Attending Attestation I have performed the following: I have examined & evaluated the patient, I agree w/resident's findings & plan - HPI HPI: 09/28/19 06:27 see resident hpi - Physicial Exam PE: 09/28/19 06:27 agree with resident exam - Medical Decision Making 09/28/19 06:28 33-year-old male with fever shortness of breath and cough Chest x-ray shows no focal infiltrate Patient has wheezing likely secondary to asthma exacerbation with influenza A infection Patient arrived febrile tachycardic and respiratory distress He has had mild improvement with steroids and nebulizer treatments We will admit to medical service for further management
--- NOTE | 2019-09-28 07:48 | HP ---
CHIEF COMPLAINT: cough PCP: HISTORY OF PRESENT ILLNESS: Patient is a 33 year old male with history of asthma, presents with complaint of cough. Patient endorses symptoms began three days ago, without clear inciting event. States cough initially productive with clear sputum, progressed to yellow colored sputum. Endorses associated nasal congestion, shortness of breath, and subjective fevers, chills. Patient denies sick contacts. He has attempted to take Acetaminphen yesterday, which was minimally palliative. Denies hematemesis, chest pain, palpitations, abdominal pain, nausea, vomiting, diarrhea, constipation, melena, hematochezia, dysuria, hematuria. Denies history of intubation. ER course was notable for: (1) WBC 9.4, 101.3F, HR 120BPM, RR 32BPM Influenza A swab positive. (2) Chest radiograph without acute infiltrate (3) DuoNeColin cotoirmev, MethylPrednisone 125mg IV Recent Travel: denies PAST MEDICAL HISTORY: Moderate- persistent asthma PAST SURGICAL HISTORY: Denies Social History: Lives in house with and 11 year old son. Smoking: Former smoker; quit 9 months ago. Admits 10 pack year smoking history. Alcohol: Denies alcohol consumption Drugs: Denies illicit drug use Allergies ketorolac [From Toradol] Allergy (Verified 09/28/19 04:07) montelukast Allergy (Verified 09/28/19 07:30) HOME MEDICATIONS: MEDICATIONS RECONCILED WITH PATIENT'S PHARMACY Home Medications Medication Instructions Recorded Prednisone 10 mg PO ASDIR #30 tablet 04/01/19 Ondansetron HCl [Zofran] 4 mg PO PRN 10 Days #10 tablet 09/01/19 Albuterol 0.083% Nebulizer Shivani 1 neb NEB QID PRN 09/28/19 [Ventolin 0.083%] Albuterol Sulfate Inhaler - 1 - 2 inh PO QID 09/28/19 [Ventolin Hfa Inhaler -] REVIEW OF SYSTEMS CONSTITUTIONAL: Admits: fever, chills, generalized weakness, malaise. Absent: diaphoresis, loss of appetite, weight change HEENT: Admits: rhinorrhea, nasal congestion. Absent: throat pain, throat swelling, difficulty swallowing, mouth swelling, ear pain, visual changes CARDIOVASCULAR: Absent: chest pain, syncope, palpitations, irregular heart rate, lightheadedness , peripheral edema RESPIRATORY: Admits: cough, shortness of breath. Absent: dyspnea with exertion, orthopnea, wheezing, stridor, hemoptysis GASTROINTESTINAL: Absent: abdominal pain, abdominal distension, nausea, vomiting, diarrhea, constipation, melena, hematochezia GENITOURINARY: Absent: dysuria, frequency, urgency, hesitancy, hematuria, flank pain, genital pain MUSCULOSKELETAL: Absent: myalgia, arthralgia, joint swelling, back pain, neck pain SKIN: Absent: rash, itching, pallor HEMATOLOGIC/IMMUNOLOGIC: Absent: easy bleeding, easy bruising, lymphadenopathy, frequent infections ENDOCRINE: Absent: unexplained weight gain, unexplained weight loss, heat intolerance, cold intolerance NEUROLOGIC: Absent: headache, focal weakness or paresthesias, dizziness, unsteady gait, seizure, mental status changes, bladder or bowel incontinence PSYCHIATRIC: Absent: anxiety, depression, suicidal or homicidal ideation, hallucinations. PHYSICAL EXAMINATION Vital Signs - 24 hr 09/28/19 09/28/19 02:00 06:23 Temperature 101.3 F H Temperature [#2 99.4 F ] Pulse Rate 114 H Pulse Rate [#2] 120 H Respiratory 22 H Rate Blood Pressure 123/69 O2 Sat by Pulse 95 Oximetry (%) GENERAL: Patient is awake, alert, and fully oriented, in no acute distress. HEAD: Normocephalic, atraumatic. EYES: Pupils equal, round and reactive to light, extraocular movements intact, sclera anicteric, conjunctiva clear. EARS, NOSE, THROAT: Oropharynx erythemnatous, without exudates. Moist mucous membranes. NECK: Normal range of motion. Supple. Negative stridor. LUNGS: Good inspiratory effort. Rhonchi with end-expiratory wheezing auscultated left > right. No accessory muscle use. HEART: Regular rate and rhythm, normal S1 and S2 without murmur, rub or gallop. ABDOMEN: Soft, nontender, not distended. Normoactive bowel sounds x4 quadrants. No guarding, no rebound tenderness. MUSCULOSKELETAL: Normal range of motion at all joints. No bony deformities or tenderness. EXTREMITIES: 2+ radial pulses bilaterally, warm, well-perfused. No peripheral edema bilateral lower extremities. NEUROLOGICAL: Cranial nerves II-XII intact. Normal speech. Negative gross focal deficits. PSYCHIATRIC: Cooperative. Appropriate mood and affect upon my encounter. SKIN: Warm, dry, normal turgor, no rashes or lesions noted. Laboratory Results - last 24 hr 09/28/19 09/28/19 09/28/19 04:15 04:15 04:15 WBC 9.4 RBC 5.37 Hgb 15.0 Hct 46.1 MCV 85.9 MCH 28.0 MCHC 32.6 RDW 14.6 Plt Count 222 MPV 8.0 Absolute Neuts (auto) 7.2 Neutrophils % 76.6 D Lymphocytes % 10.5 D Monocytes % 12.7 H Eosinophils % 0.0 D Basophils % 0.2 Nucleated RBC % 0 PT with INR INR PTT (Actin FS) Anticoagulation Therapy Puncture Site ABG pH ABG pCO2 at Pt Temp ABG pO2 at Pt Temp ABG HCO3 ABG O2 Sat (Measured) ABG O2 Content ABG Base Excess Alfred Test Carboxyhemoglobin Methemoglobin O2 Delivery Device Oxygen Flow Rate Vent Mode Vent Rate Mechanical Rate Pressure Support Vent Sodium 137 Potassium 3.7 Chloride 102 Carbon Dioxide 30 Anion Gap 6 L BUN 13.5 Creatinine 1.1 Est GFR (CKD-EPI)AfAm 102.40 Est GFR (CKD-EPI)NonAf 88.36 Random Glucose 94 Lactic Acid 0.8 Calcium 8.5 Total Bilirubin 0.2 AST 21 ALT 22 Alkaline Phosphatase 62 Troponin I Total Protein 7.0 Albumin 3.4 Urine Color Urine Appearance Urine pH Ur Specific [place] Urine Protein Urine Glucose (UA) Urine Ketones Urine Blood Urine Nitrite Urine Bilirubin Urine Urobilinogen Ur Leukocyte Esterase Influenza A (Rapid) Influenza B (Rapid) 09/28/19 09/28/19 09/28/19 04:50 05:22 05:22 WBC RBC Hgb Hct MCV MCH MCHC RDW Plt Count MPV Absolute Neuts (auto) Neutrophils % Lymphocytes % Monocytes % Eosinophils % Basophils % Nucleated RBC % PT with INR 14.50 H INR 1.23 H PTT (Actin FS) 33.4 Anticoagulation Therapy Puncture Site ABG pH ABG pCO2 at Pt Temp ABG pO2 at Pt Temp ABG HCO3 ABG O2 Sat (Measured) ABG O2 Content ABG Base Excess Alfred Test Carboxyhemoglobin Methemoglobin O2 Delivery Device Oxygen Flow Rate Vent Mode Vent Rate Mechanical Rate Pressure Support Vent Sodium Potassium Chloride Carbon Dioxide Anion Gap BUN Creatinine Est GFR (CKD-EPI)AfAm Est GFR (CKD-EPI)NonAf Random Glucose Lactic Acid Calcium Total Bilirubin AST ALT Alkaline Phosphatase Troponin I < 0.02 Total Protein Albumin Urine Color Yellow Urine Appearance Cloudy Urine pH 5.0 Ur Specific [place] 1.023 Urine Protein Negative Urine Glucose (UA) Negative Urine Ketones Negative Urine Blood Negative Urine Nitrite Negative Urine Bilirubin Negative Urine Urobilinogen 0.2 Ur Leukocyte Esterase Negative Influenza A (Rapid) Influenza B (Rapid) 09/28/19 09/28/19 05:22 05:22 WBC RBC Hgb Hct MCV MCH MCHC RDW Plt Count MPV Absolute Neuts (auto) Neutrophils % Lymphocytes % Monocytes % Eosinophils % Basophils % Nucleated RBC % PT with INR INR PTT (Actin FS) Anticoagulation Therapy No Result Required. Puncture Site No Result Required. ABG pH 7.39 ABG pCO2 at Pt Temp 44.6 ABG pO2 at Pt Temp 144 H ABG HCO3 26.2 ABG O2 Sat (Measured) 98.5 H ABG O2 Content No Result Required. ABG Base Excess 1.4 Alfred Test No Result Required. Carboxyhemoglobin < 0.5 Methemoglobin < 1.0 O2 Delivery Device No Result Required. Oxygen Flow Rate No Result Required. Vent Mode No Result Required. Vent Rate No Result Required. Mechanical Rate No Result Required. Pressure Support Vent No Result Required. Sodium Potassium Chloride Carbon Dioxide Anion Gap BUN Creatinine Est GFR (CKD-EPI)AfAm Est GFR (CKD-EPI)NonAf Random Glucose Lactic Acid Calcium Total Bilirubin AST ALT Alkaline Phosphatase Troponin I Total Protein Albumin Urine Color Urine Appearance Urine pH Ur Specific [place] Urine Protein Urine Glucose (UA) Urine Ketones Urine Blood Urine Nitrite Urine Bilirubin Urine Urobilinogen Ur Leukocyte Esterase Influenza A (Rapid) Positive A Influenza B (Rapid) Negative ASSESSMENT/PLAN: Patient is a 33 year old male with history of asthma, presents with complaint of cough, nasal congestion. Sepsis secondary to Influenza -WBC 9.4, 101.3F, HR 120BPM, RR 32BPM. Influenza A swab positive. -Chest radiograph reveals no acute infiltrates -Patient hypoxic off suplemental oxygen, will obtain D-dimer. Consider CTA chest is returns positive. -Will bolus additional liter. Gentle hydration with IV normal saline at 100mL/ hour -Oseltamivir 75mg PO daily -Will withhold antibiotics for now -ID consult (Dr. Xavier) -Follow blood cultures Asthma exacerbation -Shortness of breath, confounding tachycardia, and tachypnea may also be secondary to asthma exacerbation due to Influenza infection. -Patient received Methyl-Prednisone 125mg IV in ED. -Continue Methyl-Prednisone 40mg IV Q6H -Magnesium sulfate 2grams IV one time dose -Duo Nebs Q6 hours standing -Albuterol nebulizer Q4 hours PRN -Pulmonology consult (Dr. Irizarry) -Follow chest radiograph in morning FEN -Gentle hydration with IV normal saline at 100mL/ hour -Follow BMP, replete as necessary -Regular diet Prophylaxis -Lovenox 40mg subq daily Disposition -Admit to medical-surgical floor. DROPLET PRECAUTIONS Visit type - Emergency Visit Emergency Visit: Yes ED Registration Date: 09/28/19 Care time: The patient presented to the Emergency Department on the above date and was hospitalized for further evaluation of their emergent condition. - New Patient This patient is new to me today: Yes Date on this admission: 09/28/19 - Critical Care Critical Care patient: No ATTENDING PHYSICIAN STATEMENT I saw and evaluated the patient. I reviewed the resident's note and discussed the case with the resident. I agree with the resident's findings and plan as documented. SUBJECTIVE: OBJECTIVE: ASSESSMENT AND PLAN:
[2019-09-28] MEDS ORDERED: ALBUTEROL SO4 0.083% IH SOL 2.5 MG/3 ML VIAL.NEB. NEB PRN (08:00)
[2019-09-28] MEDS: ALBUTEROL SO4 2.5/IPRATROPIUM 0.5 INH SOL 3 ML VIAL.NEB. NEB SCH ×4 (09:25→21:00)
[2019-09-28] MEDS ORDERED: MAGNESIUM SULF 50% (8.12 MEQ/2 ML-1 GM VIAL) IVPB ONE (10:00)
[2019-09-28] MEDS ORDERED: methylPREDNISolone NA SUCC 40 MG/1 ML VIAL ONE ×2 (10:14→16:02)
[2019-09-28] MEDS ORDERED: MAGNESIUM SULFATE IN WATER 2 GM/50 ML IVPB IVPB ONE (10:14)
[2019-09-28] MEDS: ENOXAPARIN NA (PORCINE) 40 MG/0.4 ML DISP.SYRIN SQ SCH (10:19)
[2019-09-28] MEDS: methylPREDNISolone NA SUCC 40 MG/1 ML VIAL IVPUSH SCH ×3 (10:20→20:46)
[2019-09-28] MEDS ORDERED: LACTATED RINGERS SOLUTION 1,000 ML/1,000 ML INFUS.BAG IV ONE (10:49)
[2019-09-28] MEDS ORDERED: ACETAMINOPHEN 325 MG TABLET (FP) PO PRN (10:51)
[2019-09-28] MEDS ORDERED: OSELTAMIVIR PHOSPHATE 75 MG CAPSULE PO SCH (11:00)
--- NOTE | 2019-09-28 11:01 | EKG ---
Test Reason : Blood Pressure : / mmHG Vent. Rate : 092 BPM Atrial Rate : 092 BPM P-R Int : 118 ms QRS Dur : 086 ms QT Int : 336 ms P-R-T Axes : 081 083 071 degrees QTc Int : 415 ms NORMAL SINUS RHYTHM NORMAL ECG WHEN COMPARED WITH ECG OF 28-SEP-2019 03:05, NO SIGNIFICANT CHANGE WAS FOUND Confirmed by RUBÉN MAGANA MD ([id number]) on 09/28/2019 11:00:30 AM Referred By: Confirmed By:RUBÉN MAGANA MD
--- NOTE | 2019-09-28 11:24 | PN ---
Teaching Attending Note Name of Resident: Gary Robles ATTENDING PHYSICIAN STATEMENT I saw and evaluated the patient. I reviewed the resident's note and discussed the case with the resident. I agree with the resident's findings and plan as documented. 33 M from [facility], history of mild persistent asthma, presents with fevers, chills, productive cough x2-3 days in duration. Patient endorses he initially felt chills and joint pain about 3 days ago, followed by cough and SOB. In ED patient was found to be hypoxic in high 80s, requiring non-rebreather mask, nebs , steroids, w/ improvement of saturations to 98%. During examination, patient was taken off non-rebreather was saturations dropped to 87-88%, patient endorses SOB but denies overt chest pain. Denies recent travel. Lives with and 6 month old baby at home, he denies them having any symptoms. Patient endorses poorly controlled asthma over the past 5-6 months, w/ persistent SOB and DIANE. Denies history of DVT/PE. Takes Albuterol PRN at home along with PO steroids. Never intubated for asthma. Vital Signs - 24 hr 09/28/19 09/28/19 09/28/19 02:00 06:23 07:25 Temperature 101.3 F H Temperature [#2 99.4 F ] Pulse Rate 114 H Pulse Rate [#2] 120 H Pulse Rate [ Left] Respiratory 22 H 18 Rate Blood Pressure 123/69 Blood Pressure [Arm] O2 Sat by Pulse 95 99 Oximetry (%) 09/28/19 10:20 Temperature 98.2 F Temperature [#2 ] Pulse Rate Pulse Rate [#2] Pulse Rate [ 100 H Left] Respiratory 18 Rate Blood Pressure Blood Pressure 114/52 L [Arm] O2 Sat by Pulse 99 Oximetry (%) PE GA comfortable, AAox3, speaking in full sentences, tired appearing HEENT NC/AT, no oral thrush, neck supple, no stridor, EOMI Chest b/l rhonchi and end expiratory wheezing Abd Soft, NT, ND Ext No LE edema, no calf tenderness Neuro CN 2-12 grossly intact Laboratory Results - last 24 hr 09/28/19 09/28/19 09/28/19 04:15 04:15 04:15 WBC 9.4 RBC 5.37 Hgb 15.0 Hct 46.1 MCV 85.9 MCH 28.0 MCHC 32.6 RDW 14.6 Plt Count 222 MPV 8.0 Absolute Neuts (auto) 7.2 Neutrophils % 76.6 D Lymphocytes % 10.5 D Monocytes % 12.7 H Eosinophils % 0.0 D Basophils % 0.2 Nucleated RBC % 0 PT with INR INR PTT (Actin FS) D-Dimer Anticoagulation Therapy Puncture Site ABG pH ABG pCO2 at Pt Temp ABG pO2 at Pt Temp ABG HCO3 ABG O2 Sat (Measured) ABG O2 Content ABG Base Excess Alfred Test Carboxyhemoglobin Methemoglobin O2 Delivery Device Oxygen Flow Rate Vent Mode Vent Rate Mechanical Rate Pressure Support Vent Sodium 137 Potassium 3.7 Chloride 102 Carbon Dioxide 30 Anion Gap 6 L BUN 13.5 Creatinine 1.1 Est GFR (CKD-EPI)AfAm 102.40 Est GFR (CKD-EPI)NonAf 88.36 Random Glucose 94 Lactic Acid 0.8 Calcium 8.5 Total Bilirubin 0.2 AST 21 ALT 22 Alkaline Phosphatase 62 Troponin I Total Protein 7.0 Albumin 3.4 Urine Color Urine Appearance Urine pH Ur Specific [place] Urine Protein Urine Glucose (UA) Urine Ketones Urine Blood Urine Nitrite Urine Bilirubin Urine Urobilinogen Ur Leukocyte Esterase Influenza A (Rapid) Influenza B (Rapid) 09/28/19 09/28/19 09/28/19 04:50 05:22 05:22 WBC RBC Hgb Hct MCV MCH MCHC RDW Plt Count MPV Absolute Neuts (auto) Neutrophils % Lymphocytes % Monocytes % Eosinophils % Basophils % Nucleated RBC % PT with INR 14.50 H INR 1.23 H PTT (Actin FS) 33.4 D-Dimer Anticoagulation Therapy Puncture Site ABG pH ABG pCO2 at Pt Temp ABG pO2 at Pt Temp ABG HCO3 ABG O2 Sat (Measured) ABG O2 Content ABG Base Excess Alfred Test Carboxyhemoglobin Methemoglobin O2 Delivery Device Oxygen Flow Rate Vent Mode Vent Rate Mechanical Rate Pressure Support Vent Sodium Potassium Chloride Carbon Dioxide Anion Gap BUN Creatinine Est GFR (CKD-EPI)AfAm Est GFR (CKD-EPI)NonAf Random Glucose Lactic Acid Calcium Total Bilirubin AST ALT Alkaline Phosphatase Troponin I < 0.02 Total Protein Albumin Urine Color Yellow Urine Appearance Cloudy Urine pH 5.0 Ur Specific [place] 1.023 Urine Protein Negative Urine Glucose (UA) Negative Urine Ketones Negative Urine Blood Negative Urine Nitrite Negative Urine Bilirubin Negative Urine Urobilinogen 0.2 Ur Leukocyte Esterase Negative Influenza A (Rapid) Influenza B (Rapid) 09/28/19 09/28/19 09/28/19 05:22 05:22 10:49 WBC RBC Hgb Hct MCV MCH MCHC RDW Plt Count MPV Absolute Neuts (auto) Neutrophils % Lymphocytes % Monocytes % Eosinophils % Basophils % Nucleated RBC % PT with INR INR PTT (Actin FS) D-Dimer 458 Anticoagulation Therapy No Result Required. Puncture Site No Result Required. ABG pH 7.39 ABG pCO2 at Pt Temp 44.6 ABG pO2 at Pt Temp 144 H ABG HCO3 26.2 ABG O2 Sat (Measured) 98.5 H ABG O2 Content No Result Required. ABG Base Excess 1.4 Alfred Test No Result Required. Carboxyhemoglobin < 0.5 Methemoglobin < 1.0 O2 Delivery Device No Result Required. Oxygen Flow Rate No Result Required. Vent Mode No Result Required. Vent Rate No Result Required. Mechanical Rate No Result Required. Pressure Support Vent No Result Required. Sodium Potassium Chloride Carbon Dioxide Anion Gap BUN Creatinine Est GFR (CKD-EPI)AfAm Est GFR (CKD-EPI)NonAf Random Glucose Lactic Acid Calcium Total Bilirubin AST ALT Alkaline Phosphatase Troponin I Total Protein Albumin Urine Color Urine Appearance Urine pH Ur Specific [place] Urine Protein Urine Glucose (UA) Urine Ketones Urine Blood Urine Nitrite Urine Bilirubin Urine Urobilinogen Ur Leukocyte Esterase Influenza A (Rapid) Positive A Influenza B (Rapid) Negative Current Medications Generic Name Dose Route Start Last Admin Trade Name Freq PRN Reason Stop Dose Admin Acetaminophen 650 mg 09/28/19 10:51 Tylenol - PO Q6H PRN FEVER Albuterol Sulfate 1 amp 09/28/19 08:00 Ventolin 0.083% Nebulizer Soln - NEB Q4H PRN SHORT OF BREATH/WHEEZING Albuterol/Ipratropium 1 amp 09/28/19 08:00 09/28/19 12:09 Duoneb - NEB 1 amp RQID SANTIAGO Administration Enoxaparin Sodium 40 mg 09/28/19 10:00 09/28/19 10:19 Lovenox - SQ 40 mg DAILY SANTIAGO Administration Sodium Chloride 1,000 mls @ 100 mls/hr 09/28/19 12:00 Normal Saline - IV 09/29/19 21:59 ASDIR SANTIAGO Methylprednisolone Sodium Succinate 40 mg 09/28/19 10:00 09/28/19 10:20 Solu-Medrol - IVPUSH 40 mg Q6H-IV SANTIAGO Administration Oseltamivir Phosphate 75 mg 09/28/19 11:00 09/28/19 11:55 Tamiflu - PO 10/03/19 10:59 75 mg DAILY SANTIAGO Administration Pantoprazole Sodium 40 mg 09/28/19 11:00 09/28/19 11:49 Protonix Iv IVPUSH 40 mg DAILY SANTIAGO Administration A/P: 33 M h/o asthma, presents with URI symptoms for the past 2-3 days, accompanied by DIANE for the past 5 months. Patient found to be positive for Influenza A, and had significant desats when off oxygen therapy. Influenza A positive Administer Tamiflu 75mg BID x5 day course Cont IVF Replace electrolytes PRN Advised patient to notify his and other home contacts to receive PEP from her PCP for influenza ID: Dr. Xavier Hypoxemia D-dimer <500, however this does not rule out chronic PE in view of symptoms of DIANE for the past 5 months Discussed with pulmonary service, we will proceed with CT with PE protocol, verified allergies with patient denies contrast related allergies Keep NC O2 to maintain O2 saturation >90% Pulmonary consult: Dr. Donaldson Asthma Cont. nebs, IV steroids, pulmonary toileting incentive spirometry DVT ppx: Lovenox SC
[2019-09-28] MEDS ORDERED: OSELTAMIVIR PHOSPHATE 75 MG CAPSULE ONE (11:41)
[2019-09-28] MEDS ORDERED: PANTOPRAZOLE SODIUM 40 MG VIAL ONE (11:42)
[2019-09-28] MEDS: PANTOPRAZOLE SODIUM 40 MG VIAL IVPUSH SCH (11:49)
--- NOTE | 2019-09-28 13:43 | CON.PULM ---
Consult Consult Specialty:: PULMONARY Referred by:: Dr Lopez Reason for Consultation:: shortness of breath - History of Present Illness Chief Complaint: cough History of Present Illness: 33yo male with h/o asthma, bronchiectasis who was admitted with cough x 3 days. Reports subjective fevers and chills. Baby is sick at home as well. Cough is productive of yellow sputum and he has been wheezing. Does not take his inhalers at home. He did receive his flu shot this year but his swab came back positive for influenza A. He is a former smoker. - History Source History Provided By: Patient, Family Member, Medical Record Limitations to Obtaining History: No Limitations - Past Medical History Pulmonary: Yes: Asthma - Past Surgical History Past Surgical History: Yes: None - Alcohol/Substance Use Hx Alcohol Use: No History of Substance Use: reports: None - Smoking History Smoking history: Never smoked Have you smoked in the past 12 months: Yes Aproximately how many cigarettes per day: 6 Home Medications - Allergies Allergies/Adverse Reactions: Allergies Allergy/AdvReac Type Severity Reaction Status Date / Time ketorolac [From Toradol] Allergy Verified 09/28/19 04:07 montelukast Allergy Verified 09/28/19 07:30 - Home Medications Home Medications: Ambulatory Orders Prednisone 10 mg PO ASDIR #30 tablet 04/01/19 Ondansetron HCl [Zofran] 4 mg PO PRN 10 Days #10 tablet 09/01/19 Albuterol 0.083% Nebulizer Shivani [Ventolin 0.083%] 1 neb NEB QID PRN 09/28/19 Albuterol Sulfate Inhaler - [Ventolin Hfa Inhaler -] 1 - 2 inh PO QID 09/28/19 Review of Systems - Review of Systems Constitutional: reports: Chills, Fever, Weakness Eyes: denies: Recent Change in Vision HENT: denies: Nasal Congestion, Throat Pain Neck: denies: Pain on Movement, Tenderness Cardiovascular: reports: Shortness of Breath. denies: Chest Pain Respiratory: reports: Cough, Wheezing. denies: Hemoptysis Gastrointestinal: denies: Abdominal Pain, Nausea, Vomiting Genitourinary: denies: Dysuria, Hematuria Neurological: denies: Dizziness, Headache Endocrine: denies: Unexplained Weight Loss Physical Exam Vital Sings: Vital Signs Temperature 98.2 F 09/28/19 10:20 Pulse Rate 100 H 09/28/19 10:20 Respiratory Rate 18 09/28/19 10:20 Blood Pressure 114/52 L 09/28/19 10:20 O2 Sat by Pulse Oximetry (%) 99 09/28/19 10:20 Constitutional: Yes: Calm Eyes: Yes: EOM Intact, Other (injected sclera) HENT: Yes: Atraumatic, Normocephalic Neck: Yes: Supple, Trachea Midline Cardiovascular: Yes: Regular Rate and Rhythm Respiratory: Yes: Rhonchi ...Clubbing: No Gastrointestinal: Yes: Normal Bowel Sounds, Soft. No: Tenderness Edema: No Neurological: Yes: Alert, Oriented Labs: CBC, BMP 09/28/19 04:15 09/28/19 04:15 ABG Results ABG pH 7.39 (7.35-7.45) 09/28/19 05:22 ABG pCO2 at Pt Temp 44.6 mmHg (35-45) 09/28/19 05:22 ABG pO2 at Pt Temp 144 mmHg (80-100) H 09/28/19 05:22 ABG HCO3 26.2 mmol/L (22-27) 09/28/19 05:22 ABG O2 Sat (Measured) 98.5 % (95-98) H 09/28/19 05:22 ABG O2 Content No Result Required. 09/28/19 05:22 ABG Base Excess 1.4 meq/l (-2-2) 09/28/19 05:22 Imaging - Results Chest X-ray: Report Reviewed, Image Reviewed (no infiltrates) Problem List - Problems (1) Asthma exacerbation Code(s): J45.901 - UNSPECIFIED ASTHMA WITH (ACUTE) EXACERBATION (2) Influenza A Code(s): J10.1 - FLU DUE TO OTH IDENT INFLUENZA VIRUS W OTH RESP MANIFEST Assessment/Plan Influenza A Acute Asthma Exacerbation Bronchiectasis - tamiflu BID - IV medrol - inhaled bronchodilators standing and PRN - singulair - will start LABA - O2 to keep SpO2 >90% - needs outpt PFTs and work up of his bronchiectasis - DVT prophylaxis Thank you for this consult Ron Irizarry MD
[2019-09-28] MEDS: SODIUM CHLORIDE 1,000 ML IV SCH ×2 (15:00→23:19)
--- NOTE | 2019-09-28 16:38 | PN ---
Progress Note (short form) - Note Progress Note: ID CONSULT DICTATED ACUTE INFLUENZA A R/O SUPERIMPOSED RLL BACTERIAL PNEUMONIA ACUTE EXACERBATION ASTHMA AWAIT C/S TAMIFLU/ DROPLET PRECAUTIONS EMPIRIC ZITHROMAX/ CEFTRIAXONE
[2019-09-28] MEDS ORDERED: AZITHROMYCIN IVPB 500 MG/250 ML BAG IVPB ONE (17:23)
[2019-09-28] MEDS ORDERED: CEFTRIAXONE 2 GM/100 ML BAG IVPB ONE (17:23)
--- NOTE | 2019-09-28 17:24 | CONS ---
INFECTIOUS DISEASE CONSULTATION DATE OF CONSULTATION: DATE OF DICTATION: 09/28/2019 HISTORY: The patient is a 33-year-old asthmatic male who is evaluated for acute influenza A. He reports a 2- to 3-day history of generalized weakness, arthralgias, myalgias, chills, and dry cough. In the emergency room, his temperature was noted to be 101.3. He was tachypneic and hypoxemic. He was also noted to have audible wheezing. He required placement on a nonrebreather mask. Patient was treated with inhaled bronchodilators and corticosteroids. A CAT scan of the chest was performed to rule out an acute pulmonary embolism. It revealed a patchy right lower lobe infiltrate. 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 He denies any ill contacts at work, however, reports that this [id number] child had respiratory tract symptoms. He is a former smoker. Stopped many years ago. No recent hospitalizations for exacerbation of asthma. He is not steroid dependent. No history of intubation. He reports receiving influenza vaccine prior to admission. PAST MEDICAL HISTORY: As above. ALLERGIES: SINGULAIR and ULTRAM. SOCIAL HISTORY: As per HPI. LABORATORY DATA: White count 9.4, hematocrit 46.1, platelets 222, differential 76 neutrophils, 10 lymphocytes, 12 monocytes, creatinine 1.1. Liver enzymes normal. Urinalysis negative. Cultures are pending. PHYSICAL EXAMINATION: General: He is awake and alert. He is not acutely toxic appearing. Not acutely short of breath on room air. Vital Signs: Temperature 98.2, maximum temperature 101.3, blood pressure 114/52, pulse 100 regular, respirations 18 per minute. HEENT: Sclerae anicteric. Heart: Sounds S1, S2. Lungs: Scattered rhonchi. No wheezing or rales. Abdomen: Soft and nontender. Extremities: Negative for edema. Negative Homans sign. IMPRESSION: 1. Acute influenza A. 2. Rule out superimposed right lower lobe bacterial pneumonia. 3. Acute exacerbation bronchial asthma. PLAN: Await cultures. Continue Tamiflu and droplet precautions. Empiric Zithromax and ceftriaxone. Thank you for the kind referral. DARNELL JAMIL M.D. KEVIN/[id number]
[2019-09-28] MEDS: CEFTRIAXONE 2 GM in DEXTROSE 5%-WATER 100 ML IVPB SCH (17:30)
[2019-09-28] MEDS: AZITHROMYCIN IVPB 500 MG/250 ML BAG IVPB SCH (18:09)
[2019-09-28] MEDS ORDERED: PNEUMOCOCCAL 23 VACCINE 0.5 ML VIAL IM ONE (21:45)
[2019-09-28] MEDS ORDERED: PNEUMOC 13-VAL CONJ-DIP CRM/PF 0.5 ML DISP.SYRIN IM ONE (22:00)
[2019-09-28 22:47] VITALS: BMI 30.4
[2019-09-28] MEDS: OSELTAMIVIR PHOSPHATE 75 MG CAPSULE PO SCH (23:06)
[2019-09-28] MEDS: BUDESONIDE/FORMETEROL FUMARATE 160/4.5 mcg INHALER IH SCH (23:06)
[2019-09-29] MEDS: methylPREDNISolone NA SUCC 40 MG/1 ML VIAL IVPUSH SCH ×3 (02:23→18:24)
[2019-09-29] MEDS: ALBUTEROL SO4 2.5/IPRATROPIUM 0.5 INH SOL 3 ML VIAL.NEB. NEB SCH ×4 (08:01→20:25)
[2019-09-29 08:09] LABS: HEMATOCRIT 42.9 % (35.4-49); HEMOGLOBIN 14.1 GM/dL (11.7-16.9); MCH 28.2 pg (25.7-33.7); MCHC 32.8 g/dl (32.0-35.9); PLATELET COUNT 222 K/MM3 (134-434); RBC 4.99 M/mm3 (4.00-5.60); RDW 15.2 % (11.9-15.9); WHITE BLOOD COUNT 9.2 K/mm3 (4.0-10.0)
[2019-09-29 08:49] LABS: ALBUMIN 2.8 g/dl (3.4-5.0); BILIRUBIN,TOTAL 0.3 mg/dL (0.2-1); BLOOD UREA NITROGEN 16.1 mg/dL (7-18); CALCIUM 8.4 mg/dL (8.5-10.1); CREATININE 0.8 mg/dL (0.55-1.3); MAGNESIUM 2.5 mg/dL (1.8-2.4); PHOSPHOROUS 3.2 mg/dL (2.5-4.9); POTASSIUM 4.2 mmol/L (3.5-5.1); TOT PROT 6.3 g/dl (6.4-8.2)
--- NOTE | 2019-09-29 09:42 | PN ---
Progress Note (short form) - Note Progress Note: PULMONARY States breathing better today. Less cough and wheezing. No further fevers. Vital Signs Period Temp Pulse Resp BP Sys/New Pulse Ox Last 24 Hr 97.0 F-98.8 F 77-106 18-22 104-125/52-82 93-99 Gen: NAD at rest Heart: RRR Lung: scattered rhonchi Abd: soft, nontender Ext: no edema CBC, BMP 09/29/19 07:15 09/29/19 07:15 Active Medications Acetaminophen (Tylenol -) 650 mg PO Q6H PRN PRN Reason: FEVER Albuterol Sulfate (Ventolin 0.083% Nebulizer Soln -) 1 amp NEB Q4H PRN PRN Reason: SHORT OF BREATH/WHEEZING Albuterol/Ipratropium (Duoneb -) 1 amp NEB RQID [facility] Last Admin: 09/29/19 08:01 Dose: 1 amp Budesonide/Formoterol Fumarate (Symbicort 160/4.5mcg -) 2 puff IH BID [facility] Last Admin: 09/28/19 23:06 Dose: 2 puff Enoxaparin Sodium (Lovenox -) 40 mg SQ DAILY [facility] Last Admin: 09/28/19 10:19 Dose: 40 mg Sodium Chloride (Normal Saline -) 1,000 mls @ 100 mls/hr IV ASDIR [facility] Stop: 09/29/19 21:59 Last Admin: 09/28/19 23:19 Dose: 100 mls/hr Azithromycin (Zithromax 500mg Ivpb (Pre-Docked)) 500 mg in 250 mls @ 250 mls/ hr IVPB DAILY [facility] Last Admin: 09/28/19 18:09 Dose: 250 mls/hr Ceftriaxone Sodium 2 gm/ (Dextrose) 100 mls @ 200 mls/hr IVPB DAILY [facility]; Protocol Last Admin: 09/28/19 17:30 Dose: 200 mls/hr Methylprednisolone Sodium Succinate (Solu-Medrol -) 40 mg IVPUSH Q6H-IV [facility] Last Admin: 09/29/19 02:23 Dose: 40 mg Oseltamivir Phosphate (Tamiflu -) 75 mg PO BID [facility] Stop: 10/03/19 22:29 Last Admin: 09/28/19 23:06 Dose: 75 mg Pantoprazole Sodium (Protonix Iv) 40 mg IVPUSH DAILY [facility] Last Admin: 09/28/19 11:49 Dose: 40 mg A/P Influenza A Acute Asthma Exacerbation r/o Pneumonia Bronchiectasis - tamiflu BID - antibiotics per ID - taper medrol - can likely change steroids to PO in AM if continues to improve - inhaled bronchodilators standing and PRN - LABA - O2 to keep SpO2 >90% - outpt PFTs - DVT prophylaxis Problem List - Problems (1) Asthma exacerbation Code(s): J45.901 - UNSPECIFIED ASTHMA WITH (ACUTE) EXACERBATION (2) Influenza A Code(s): J10.1 - FLU DUE TO OTH IDENT INFLUENZA VIRUS W OTH RESP MANIFEST
[2019-09-29] MEDS ORDERED: DEXTROSE 5%-WATER 100 ML IVPB ONE (10:04)
[2019-09-29] MEDS: PANTOPRAZOLE SODIUM 40 MG VIAL IVPUSH SCH (10:14)
[2019-09-29] MEDS: ENOXAPARIN NA (PORCINE) 40 MG/0.4 ML DISP.SYRIN SQ SCH (10:14)
[2019-09-29] MEDS: CEFTRIAXONE 2 GM in DEXTROSE 5%-WATER 100 ML IVPB SCH (10:17)
[2019-09-29] MEDS: AZITHROMYCIN IVPB 500 MG/250 ML BAG IVPB SCH (10:20)
[2019-09-29] MEDS: OSELTAMIVIR PHOSPHATE 75 MG CAPSULE PO SCH ×2 (10:24→22:26)
[2019-09-29] MEDS: BUDESONIDE/FORMETEROL FUMARATE 160/4.5 mcg INHALER IH SCH ×2 (10:25→22:29)
--- NOTE | 2019-09-29 12:28 | PN ---
Progress Note, Physician History of Present Illness: AWAKE, ALERT IN BED REPORTS IMPROVEMENT IN BREATHING OCCASIONAL COUGH NO C/O CHEST PAIN AFEBRILE - Current Medication List Current Medications: Active Medications Acetaminophen (Tylenol -) 650 mg PO Q6H PRN PRN Reason: FEVER Albuterol Sulfate (Ventolin 0.083% Nebulizer Soln -) 1 amp NEB Q4H PRN PRN Reason: SHORT OF BREATH/WHEEZING Albuterol/Ipratropium (Duoneb -) 1 amp NEB RQID [facility] Last Admin: 09/29/19 11:40 Dose: 1 amp Budesonide/Formoterol Fumarate (Symbicort 160/4.5mcg -) 2 puff IH BID [facility] Last Admin: 09/29/19 10:25 Dose: 2 puff Enoxaparin Sodium (Lovenox -) 40 mg SQ DAILY [facility] Last Admin: 09/29/19 10:14 Dose: 40 mg Sodium Chloride (Normal Saline -) 1,000 mls @ 100 mls/hr IV ASDIR [facility] Stop: 09/29/19 21:59 Last Admin: 09/28/19 23:19 Dose: 100 mls/hr Azithromycin (Zithromax 500mg Ivpb (Pre-Docked)) 500 mg in 250 mls @ 250 mls/ hr IVPB DAILY [facility] Last Admin: 09/29/19 10:20 Dose: 250 mls/hr Ceftriaxone Sodium 2 gm/ (Dextrose) 100 mls @ 200 mls/hr IVPB DAILY [facility]; Protocol Last Admin: 09/29/19 10:17 Dose: 200 mls/hr Methylprednisolone Sodium Succinate (Solu-Medrol -) 40 mg IVPUSH Q8H-IV [facility] Oseltamivir Phosphate (Tamiflu -) 75 mg PO BID [facility] Stop: 10/03/19 22:29 Last Admin: 09/29/19 10:24 Dose: 75 mg Pantoprazole Sodium (Protonix Iv) 40 mg IVPUSH DAILY [facility] Last Admin: 09/29/19 10:14 Dose: 40 mg - Objective Vital Signs: Vital Signs Temperature 97.6 F 09/29/19 09:05 Pulse Rate 87 09/29/19 09:05 Respiratory Rate 18 09/29/19 09:05 Blood Pressure 125/63 09/29/19 09:05 O2 Sat by Pulse Oximetry (%) 95 09/28/19 22:00 Constitutional: Yes: No Distress Eyes: Yes: Conjunctiva Clear Cardiovascular: Yes: Regular Rate and Rhythm, S1, S2 Respiratory: Yes: Other (OCCASIONAL WHEEZE BILAT) Gastrointestinal: Yes: Normal Bowel Sounds, Soft. No: Tenderness Edema: No Labs: CBC, BMP 09/29/19 07:15 09/29/19 07:15 INR, PTT INR 1.23 (0.83-1.09) H 09/28/19 05:22 Assessment/Plan ACUTE INFLUENZA A ACUTE EXACERBATION ASTHMA ? PNEUMONIA CONTINUE TAMIFLU COMPLETE 5D COURSE IF STABLE SUBSTITUTE PO CEFTIN 500MG BID [facility]
--- NOTE | 2019-09-29 14:00 | PN ---
Teaching Attending Note Name of Resident: Nadir Steel ATTENDING PHYSICIAN STATEMENT I saw and evaluated the patient. I reviewed the resident's note and discussed the case with the resident. I agree with the resident's findings and plan as documented. SUBJECTIVE: No fever or chills. SOB is better compared to be fore. No CP . cough with productive cough. no Abd pain, no diarrhea. OBJECTIVE: NAD, awake , alert , cooperative Cv: RRR, no MRG . Lungs: prolonged expiratory phase. scattered wheezes. R base crackles Ext : No edema or erythema. Abd: soft, NT, Nd , NL BS ASSESSMENT AND PLAN: 33 y/o man with h/o asthma, who presented with worseningn SOB. He was found to have Influenza A, RLL PNA, and Asthma exacerbation 1- sepsis: Now resolved 2- Flu A 3- Acute Asthma exacerbation 4- RLL PNA 5- Hilar and mediastinal Lymphadenopathy 6- chronic SOB. Plan: - cont Tamiflu - cont ceftriaxone and azithromycin. QTC 415 - cont steroids and Nebs - cont symbicort - CTA with no central PE. appreciate Pulm INput - will refer to pulmonary as out pt. - will probably need a repeat CT scan of chest to evaluate mediastinal Lymphadenopathy in 1-2 months - cont lovenox for DVT px Possible dc tomorrow if he continues to improve
--- NOTE | 2019-09-29 15:53 | PN ---
Physical Exam: SUBJECTIVE: Patient seen and examined. He reports productive cough, but no shortness of breath at rest. He denies fever, chills, nausea, vomiting. He used O2 overnight but has been off since he woke up. OBJECTIVE: Vital Signs Period Temp Pulse Resp BP Sys/New Pulse Ox Last 24 Hr 97.0 F-98.8 F 77-106 18-22 104-125/63-80 93-99 GENERAL: The patient is awake, alert, and fully oriented, in no acute distress. HEAD: Normal with no signs of trauma. EYES: PERRL, extraocular movements intact, conjunctiva clear. ENT: Ears normal, nares patent, moist mucous membranes. NECK: Trachea midline, full range of motion, supple. LUNGS: Good air entry, mild expiratory wheezes RUL, crackles at right base, long expiratory phase, no accessory muscle use. HEART: Regular rate and rhythm, no murmur ABDOMEN: Soft, nontender, nondistended, normoactive bowel sounds EXTREMITIES: Warm, well-perfused, no edema. NEUROLOGICAL: Cranial nerves II through XII grossly intact. Normal speech, gait not observed. PSYCH: Normal mood, normal affect. SKIN: Warm, dry, normal turgor, no rashes Laboratory Results - last 24 hr 09/29/19 09/29/19 07:15 07:15 WBC 9.2 RBC 4.99 Hgb 14.1 Hct 42.9 MCV 86.0 MCH 28.2 MCHC 32.8 RDW 15.2 Plt Count 222 MPV 8.0 Sodium 142 Potassium 4.2 Chloride 108 H Carbon Dioxide 27 Anion Gap 7 L BUN 16.1 Creatinine 0.8 Est GFR (CKD-EPI)AfAm 136.99 Est GFR (CKD-EPI)NonAf 118.20 Random Glucose 129 H Calcium 8.4 L Phosphorus 3.2 Magnesium 2.5 H Total Bilirubin 0.3 AST 20 ALT 23 Alkaline Phosphatase 53 Total Protein 6.3 L Albumin 2.8 L Active Medications Generic Name Dose Route Start Last Admin Trade Name Freq PRN Reason Stop Dose Admin Acetaminophen 650 mg 09/28/19 10:51 Tylenol - PO Q6H PRN FEVER Albuterol Sulfate 1 amp 09/28/19 08:00 Ventolin 0.083% Nebulizer Soln - NEB Q4H PRN SHORT OF BREATH/WHEEZING Albuterol/Ipratropium 1 amp 09/28/19 08:00 09/29/19 15:25 Duoneb - NEB 1 amp RQID [facility] Administration Budesonide/Formoterol Fumarate 2 puff 09/28/19 22:00 09/29/19 10:25 Symbicort 160/4.5mcg - IH 2 puff BID [facility] Administration Enoxaparin Sodium 40 mg 09/28/19 10:00 09/29/19 10:14 Lovenox - SQ 40 mg DAILY [facility] Administration Sodium Chloride 1,000 mls @ 100 mls/hr 09/28/19 12:00 09/28/19 23:19 Normal Saline - IV 09/29/19 21:59 100 mls/hr ASDIR [facility] Administration Azithromycin 500 mg in 250 mls @ 250 mls/hr 09/28/19 16:15 09/29/19 10:20 Zithromax 500mg Ivpb (Pre-Docked) IVPB 250 mls/hr DAILY [facility] Administration Ceftriaxone Sodium 2 gm/ 100 mls @ 200 mls/hr 09/28/19 16:15 09/29/19 10:17 Dextrose IVPB 200 mls/hr DAILY [facility] Administration Protocol Methylprednisolone Sodium Succinate 40 mg 09/29/19 18:00 Solu-Medrol - IVPUSH Q8H-IV [facility] Oseltamivir Phosphate 75 mg 09/28/19 22:30 09/29/19 10:24 Tamiflu - PO 10/03/19 22:29 75 mg BID [facility] Administration Pantoprazole Sodium 40 mg 09/28/19 11:00 09/29/19 10:14 Protonix Iv IVPUSH 40 mg DAILY [facility] Administration ASSESSMENT/PLAN: Mr. Rea is a 33y/o male with asthma who presents with shortness of breath. Patient was found to have influenza A. #acute asthma exacerbation 2/2 influenza with resolved sepsis #possible RLL PNA -duonebs QID -albuterol Q4H PRN -Symbicort BID -solumedrol 40mg Q8H -zithromax day 2 -ceftriaxone day 2 -Tamiflu day 2 -will switch to PO ceftin tomorrow -ID following -pulm following #mediastinal and hilar lymphadenopathy -noted on CT -could be from infection, recommend f/u CT in about 2 months -pulm out pt #hypermagnesemia -likely from Mg admin in ED DVT Ppx lovenox GI Ppx protonix FEN PO fluids monitor labs regular diet dispo possible dc tomorrow Visit type - Emergency Visit Emergency Visit: Yes ED Registration Date: 09/28/19 Care time: The patient presented to the Emergency Department on the above date and was hospitalized for further evaluation of their emergent condition. - New Patient This patient is new to me today: Yes Date on this admission: 09/29/19 - Critical Care Critical Care patient: No - Discharge Referral Referred to [facility] Med P.C.: No ATTENDING PHYSICIAN STATEMENT I saw and evaluated the patient. I reviewed the resident's note and discussed the case with the resident. I agree with the resident's findings and plan as documented. SUBJECTIVE: OBJECTIVE: ASSESSMENT AND PLAN:
[2019-09-29] MEDS: SODIUM CHLORIDE 1,000 ML IV SCH (18:23)
[2019-09-30] MEDS: methylPREDNISolone NA SUCC 40 MG/1 ML VIAL IVPUSH SCH ×2 (02:42→10:44)
[2019-09-30] MEDS: ALBUTEROL SO4 2.5/IPRATROPIUM 0.5 INH SOL 3 ML VIAL.NEB. NEB SCH ×3 (07:40→16:11)
[2019-09-30 08:04] LABS: BASO % 0.1 % (0-2.0); HEMATOCRIT 47.1 % (35.4-49); HEMOGLOBIN 15.5 GM/dL (11.7-16.9); LYMPH % 7.4 % (8-40); MCH 28.2 pg (25.7-33.7); MCHC 32.9 g/dl (32.0-35.9); MEAN CELL VOLUME 85.7 fl (80-96); MEAN PLT VOLUME 8.2 fl (7.5-11.1); MONO % 7.2 % (3.8-10.2); NEUT % 85.3 % (42.8-82.8); PLATELET COUNT 264 K/MM3 (134-434); RBC 5.49 M/mm3 (4.00-5.60); RDW 15.1 % (11.9-15.9); WHITE BLOOD COUNT 10.5 K/mm3 (4.0-10.0)
[2019-09-30 08:37] LABS: BLOOD UREA NITROGEN 19.8 mg/dL (7-18); CALCIUM 8.8 mg/dL (8.5-10.1); CREATININE 0.9 mg/dL (0.55-1.3); MAGNESIUM 2.6 mg/dL (1.8-2.4); POTASSIUM 4.3 mmol/L (3.5-5.1)
--- NOTE | 2019-09-30 09:36 | PN ---
Teaching Attending Note Name of Resident: Chas Watt ATTENDING PHYSICIAN STATEMENT I saw and evaluated the patient. I reviewed the resident's note and discussed the case with the resident. I agree with the resident's findings and plan as documented. SUBJECTIVE: Patient is feeling better with no acute distress, no fever or chills, no shortness of breath. OBJECTIVE: Vital Signs Temperature 98.1 F 09/30/19 06:00 Pulse Rate 77 09/30/19 06:00 Respiratory Rate 09/30/19 06:00 Blood Pressure 105/70 09/30/19 06:00 O2 Sat by Pulse Oximetry (%) 97 09/29/19 21:00 GENERAL: The patient is awake, alert, and fully oriented, in no acute distress. HEAD: Normal with no signs of trauma. EYES: PERRL, extraocular movements intact, sclera anicteric, conjunctiva clear. ENT: Ears normal, oropharynx clear without exudates, moist mucous membranes. NECK: Trachea midline, full range of motion, supple. LUNGS: Breath sounds equal, clear to auscultation bilaterally, no wheezes, no crackles, no accessory muscle use. HEART: Regular rate and rhythm, S1, S2 without murmur, rub or gallop. ABDOMEN: Soft, nontender, nondistended, normoactive bowel sounds, no guarding, no rebound, no hepatosplenomegaly, no masses. EXTREMITIES: 2+ pulses, warm, well-perfused, no edema. NEUROLOGICAL: Cranial nerves II through XII grossly intact. Normal speech, gait not observed. PSYCH: Normal mood, normal affect. SKIN: Warm, dry, normal turgor, no rashes or lesions noted CBCD WBC 10.5 K/mm3 (4.0-10.0) H 09/30/19 07:15 RBC 5.49 M/mm3 (4.00-5.60) 09/30/19 07:15 Hgb 15.5 GM/dL (11.7-16.9) 09/30/19 07:15 Hct 47.1 % (35.4-49) 09/30/19 07:15 MCV 85.7 fl (80-96) 09/30/19 07:15 MCHC 32.9 g/dl (32.0-35.9) 09/30/19 07:15 RDW 15.1 % (11.9-15.9) 09/30/19 07:15 Plt Count 264 K/MM3 (134-434) 09/30/19 07:15 MPV 8.2 fl (7.5-11.1) 09/30/19 07:15 CMP Sodium 139 mmol/L (136-145) 09/30/19 07:15 Potassium 4.3 mmol/L (3.5-5.1) 09/30/19 07:15 Chloride 104 mmol/L (98-107) 09/30/19 07:15 Carbon Dioxide 28 mmol/L (21-32) 09/30/19 07:15 Anion Gap 7 MMOL/L (8-16) L 09/30/19 07:15 BUN 19.8 mg/dL (7-18) H 09/30/19 07:15 Creatinine 0.9 mg/dL (0.55-1.3) 09/30/19 07:15 Random Glucose 125 mg/dL (74-106) H 09/30/19 07:15 Calcium 8.8 mg/dL (8.5-10.1) 09/30/19 07:15 Total Bilirubin 0.3 mg/dL (0.2-1) 09/29/19 07:15 AST 20 U/L (15-37) 09/29/19 07:15 ALT 23 U/L (13-61) 09/29/19 07:15 Alkaline Phosphatase 53 U/L (45-117) 09/29/19 07:15 Total Protein 6.3 g/dl (6.4-8.2) L 09/29/19 07:15 Albumin 2.8 g/dl (3.4-5.0) L 09/29/19 07:15 CARDIAC ENZYMES Troponin I < 0.02 ng/ml (0.00-0.05) 09/28/19 05:22 Current Medications Generic Name Dose Route Start Last Admin Trade Name Freq PRN Reason Stop Dose Admin Acetaminophen 650 mg 09/28/19 10:51 Tylenol - PO Q6H PRN FEVER Albuterol Sulfate 1 amp 09/28/19 08:00 Ventolin 0.083% Nebulizer Soln - NEB Q4H PRN SHORT OF BREATH/WHEEZING Albuterol/Ipratropium 1 amp 09/28/19 08:00 09/30/19 07:40 Duoneb - NEB 1 amp RQID [facility] Administration Budesonide/Formoterol Fumarate 2 puff 09/28/19 22:00 09/29/19 22:29 Symbicort 160/4.5mcg - IH 2 puff BID [facility] Administration Cefuroxime Axetil 500 mg 09/30/19 10:00 Ceftin - PO BID [facility] Enoxaparin Sodium 40 mg 09/28/19 10:00 09/29/19 10:14 Lovenox - SQ 40 mg DAILY [facility] Administration Methylprednisolone Sodium Succinate 40 mg 09/29/19 18:00 09/30/19 02:42 Solu-Medrol - IVPUSH 40 mg Q8H-IV [facility] Administration Oseltamivir Phosphate 75 mg 09/28/19 22:30 09/29/19 22:26 Tamiflu - PO 10/03/19 22:29 75 mg BID [facility] Administration Pantoprazole Sodium 40 mg 09/28/19 11:00 09/29/19 10:14 Protonix Iv IVPUSH 40 mg DAILY [facility] Administration Home Medications Medication Instructions Recorded Ondansetron HCl [Zofran] 4 mg PO PRN 10 Days #10 tablet 09/01/19 Albuterol 0.083% Nebulizer Shivani 1 neb NEB QID PRN 09/28/19 [Ventolin 0.083%] Albuterol Sulfate Inhaler - 1 - 2 inh PO QID 09/28/19 [Ventolin Hfa Inhaler -] Ergocalciferol (Vitamin D2) 50,000 unit PO WEEKLY 09/28/19 [Vitamin D2] Prednisone 30 mg PO ONCE 09/28/19 Microbiology 09/28/19 06:01 Blood - Peripheral Venous Blood Culture - Preliminary NO GROWTH OBTAINED AFTER 48 HOURS, INCUBATION TO CONTINUE FOR 3 DAYS. 09/28/19 06:01 Blood - Peripheral Venous Blood Culture - Preliminary NO GROWTH OBTAINED AFTER 48 HOURS, INCUBATION TO CONTINUE FOR 3 DAYS. 09/28/19 04:15 Blood - Peripheral Venous Blood Culture - Preliminary NO GROWTH OBTAINED AFTER 48 HOURS, INCUBATION TO CONTINUE FOR 3 DAYS. 09/28/19 04:15 Blood - Peripheral Venous Blood Culture - Preliminary NO GROWTH OBTAINED AFTER 48 HOURS, INCUBATION TO CONTINUE FOR 3 DAYS. 09/29/19 07:15 Sputum - Expectorated Gram Stain - Final 09/28/19 20:40 Urine For Antigen Detection Legionella Antigen - Final 09/28/19 20:40 Urine For Antigen Detection Streptococcus pneumoniae Antigen (M - Final Laboratory Tests 09/28/19 05:22 Influenza A (Rapid) Positive A Influenza B (Rapid) Negative Home Medications Medication Instructions Recorded Albuterol 0.083% Nebulizer Shivani 1 neb NEB QID PRN 09/28/19 [Ventolin 0.083% Nebulizer Soln -] Albuterol Sulfate Inhaler - 1 - 2 inh PO QID 09/28/19 [Ventolin HFA Inhaler -] Ergocalciferol (Vitamin D2) 50,000 unit PO WEEKLY 09/28/19 [Vitamin D2] Acetaminophen [Tylenol .Regular 650 mg PO Q6H PRN #28 tablet 09/30/19 Strength -] Budesonide/Formeterol Fumarate 2 puff IH BID #1 inhaler 09/30/19 [SYMBICORT 160/4.5mcg -] Cefuroxime Axetil [Ceftin -] 500 mg PO BID #8 tablet 09/30/19 Oseltamivir Phosphate [Tamiflu -] 75 mg PO BID #6 capsule 09/30/19 predniSONE [Deltasone -] 40 mg PO DAILY #10 tablet 09/30/19 CTA: neg for PE ASSESSMENT AND PLAN: Patient is a 33 y/om with Pmhx of asthma, who presented with worsening SOB. He was found to have Influenza A, RLL PNA, and Asthma exacerbation # s/p sepsis: resolved # Influenza A positive on tamuflu complete the course # Acute Asthma exacerbation as per pulm. to continue with Prednisone for 5 more days, 40mg as per Dr.Wu azul, cont symbicort , need a repeat CT scan of chest to evaluate mediastinal Lymphadenopathy in 1-2 months # RLL PNA continue with ceftin 500mg bid x 4 more days # Hilar and mediastinal Lymphadenopathy follow up with pulmonary within a week period dc patient home
--- NOTE | 2019-09-30 09:38 | PN ---
Progress Note (short form) - Note Progress Note: PULMONARY States breathing better today, close to baseline. Less cough and wheezing. No further fevers. Vital Signs Period Temp Pulse Resp BP Sys/New Pulse Ox Last 24 Hr 97.9 F-98.4 F 74-93 18-20 103-122/70-77 97 Gen: NAD at rest Heart: RRR Lung: scattered rhonchi Abd: soft, nontender Ext: no edema CBC, BMP 09/30/19 07:15 09/30/19 07:15 Active Medications Acetaminophen (Tylenol -) 650 mg PO Q6H PRN PRN Reason: FEVER Albuterol Sulfate (Ventolin 0.083% Nebulizer Soln -) 1 amp NEB Q4H PRN PRN Reason: SHORT OF BREATH/WHEEZING Albuterol/Ipratropium (Duoneb -) 1 amp NEB RQID [facility] Last Admin: 09/30/19 07:40 Dose: 1 amp Budesonide/Formoterol Fumarate (Symbicort 160/4.5mcg -) 2 puff IH BID [facility] Last Admin: 09/29/19 22:29 Dose: 2 puff Cefuroxime Axetil (Ceftin -) 500 mg PO BID [facility] Enoxaparin Sodium (Lovenox -) 40 mg SQ DAILY [facility] Last Admin: 09/29/19 10:14 Dose: 40 mg Methylprednisolone Sodium Succinate (Solu-Medrol -) 40 mg IVPUSH Q8H-IV [facility] Last Admin: 09/30/19 02:42 Dose: 40 mg Oseltamivir Phosphate (Tamiflu -) 75 mg PO BID [facility] Stop: 10/03/19 22:29 Last Admin: 09/29/19 22:26 Dose: 75 mg Pantoprazole Sodium (Protonix Iv) 40 mg IVPUSH DAILY [facility] Last Admin: 09/29/19 10:14 Dose: 40 mg A/P Influenza A Acute Asthma Exacerbation r/o Pneumonia Bronchiectasis - complete tamiflu BID - antibiotics per ID - can change steroids to PO prednisone 40mg daily and continue for 5 more days as outpt - inhaled bronchodilators standing and PRN - LABA - O2 to keep SpO2 >90% - outpt PFTs - DVT prophylaxis - can d/c home from pulmonary standpoint Problem List - Problems (1) Asthma exacerbation Code(s): J45.901 - UNSPECIFIED ASTHMA WITH (ACUTE) EXACERBATION (2) Influenza A Code(s): J10.1 - FLU DUE TO OTH IDENT INFLUENZA VIRUS W OTH RESP MANIFEST
[2019-09-30] MEDS ORDERED: CEFUROXIME AXETIL 500 MG TABLET PO SCH (10:00)
[2019-09-30] MEDS: BUDESONIDE/FORMETEROL FUMARATE 160/4.5 mcg INHALER IH SCH (10:44)
[2019-09-30] MEDS: OSELTAMIVIR PHOSPHATE 75 MG CAPSULE PO SCH (10:44)
[2019-09-30] MEDS: ENOXAPARIN NA (PORCINE) 40 MG/0.4 ML DISP.SYRIN SQ SCH (10:44)
[2019-09-30] MEDS: PANTOPRAZOLE SODIUM 40 MG VIAL IVPUSH SCH (10:44)
--- NOTE | 2019-09-30 14:44 | DS ---
Physical Exam: SUBJECTIVE: Patient seen and examined OBJECTIVE: Vital Signs Period Temp Pulse Resp BP Sys/New Pulse Ox Last 24 Hr 98.1 F-98.4 F 74-94 18-20 103-127/70-77 97 PHYSICAL EXAM GENERAL: The patient is awake, alert, and fully oriented, in no acute distress. HEAD: Normal with no signs of trauma. EYES: PERRL, extraocular movements intact, conjunctiva clear. ENT: Ears normal, nares patent, moist mucous membranes. NECK: Trachea midline, full range of motion, supple. LUNGS: Good air entry, very mild expiratory wheezes RUL, mild crackles at right base, slightly long expiratory phase, no accessory muscle use. HEART: Regular rate and rhythm, no murmur ABDOMEN: Soft, nontender, nondistended, normoactive bowel sounds EXTREMITIES: Warm, well-perfused, no edema. NEUROLOGICAL: Cranial nerves II through XII grossly intact. Normal speech, gait not observed. PSYCH: Normal mood, normal affect. SKIN: Warm, dry, normal turgor, no rashes LABS Laboratory Results - last 24 hr 09/30/19 09/30/19 07:15 07:15 WBC 10.5 H RBC 5.49 Hgb 15.5 Hct 47.1 MCV 85.7 MCH 28.2 MCHC 32.9 RDW 15.1 Plt Count 264 MPV 8.2 Absolute Neuts (auto) 9.0 H Neutrophils % 85.3 H Lymphocytes % 7.4 L D Monocytes % 7.2 Eosinophils % 0.0 Basophils % 0.1 Nucleated RBC % 0 Sodium 139 Potassium 4.3 Chloride 104 Carbon Dioxide 28 Anion Gap 7 L BUN 19.8 H Creatinine 0.9 Est GFR (CKD-EPI)AfAm 130.52 Est GFR (CKD-EPI)NonAf 112.62 Random Glucose 125 H Calcium 8.8 Magnesium 2.6 H HOSPITAL COURSE: Date of Admission:09/28/19 Date of Discharge: 09/30/19 33M w/ pmh of asthma presenting to [facility] for complaint of SOB. Labwork positive for Influenza A. CTA chest for SOB, showed medastinal LAD, possible distal branch emboli, RLL patchy nodular consolidation vs infiltration. Low concern for PE so AC was not started. Given bronchodilators IH, solumedrol. Solumedrol converted to prednisone 40mg QD x5d as per Pulm(Juan C). Possible RLL PNA prompted ID consulted(Duc) who changed ceftriaxone to ceftin PO. Sent home with BD, symbicort, ceftin. Minutes to complete discharge: 37 Discharge Summary Problems reviewed: Yes Reason For Visit: EXACERBATION OF ASTHMA/INFLUENZA DUE TO INFLUENZA Current Active Problems Asthma exacerbation (Acute) Influenza A (Acute) Respiratory distress (Acute) Condition: Stable - Instructions Diet, Activity, Other Instructions: Hospital Visit: You were admitted to the hospital for an asthma attack and the flu. You were given medications to help with your breathing and medications for the infections. You are able to continue your treatment at home. Medications: -Tamiflu 75mg twice a day. Start taking a dose tonight at 10pm, to be finished on 10/03/18 at 10am -Ceftin 500mg twice a day. Take for 4 days -Albuterol inhaler, 2 puffs every 6 hours if experiencing shortness of breath. -Symbicort 2 puffs, twice a day -Prednisone 40mg daily, to be stopped after 5 days -Tylenol 650mg every 6 hours as needed for pain or fever. Do not take more than 4 grams a day. Follow Up: -Primary care, 1 week after discharge. If you do not have a Primary Care Doctor you can follow up with the [facility]([address] [place] [address], [address] Cristy Bardales) -Dr. Irizarry, pulmonology, less than 1 month after discharge. You will likely need a follow up CT scan of your chest to check for resolution of enlarged lymph nodes in your chest. You should discuss getting Pulmonary Function Testing Other Instructions: Return to the emergency room or call 911 if you have shortness of breath, chest pain, fever that does not improve with Tylenol Referrals: Milan Conner MD [Staff Physician] - 1 Week (Please call Clinic within 1 week and make an appointment with Dr Cristy Beltran to be your primary care provider. ) Ron Irizarry MD, MD [Staff Physician] - 1 Week Disposition: HOME - Home Medications Comprehensive Discharge Medication List: Ambulatory Orders Albuterol 0.083% Nebulizer Shivani [Ventolin 0.083% Nebulizer Soln -] 1 neb NEB QID PRN 09/28/19 Albuterol Sulfate Inhaler - [Ventolin HFA Inhaler -] 1 - 2 inh PO QID 09/28/19 Ergocalciferol (Vitamin D2) [Vitamin D2] 50,000 unit PO WEEKLY 09/28/19 Acetaminophen [Tylenol .Regular Strength -] 650 mg PO Q6H PRN #28 tablet Budesonide/Formeterol Fumarate [SYMBICORT 160/4.5mcg -] 2 puff IH BID #1 inhaler 09/30/19 Cefuroxime Axetil [Ceftin -] 500 mg PO BID #8 tablet 09/30/19 Oseltamivir Phosphate [Tamiflu -] 75 mg PO BID #6 capsule 09/30/19 predniSONE [Deltasone -] 40 mg PO DAILY #10 tablet 09/30/19 This patient is new to me today: No Emergency Visit: No Critical Care patient: No - Discharge Referral Referred to [facility] No ATTENDING PHYSICIAN STATEMENT I saw and evaluated the patient. I reviewed the resident's note and discussed the case with the resident. I agree with the resident's findings and plan as documented. SUBJECTIVE: OBJECTIVE: ASSESSMENT AND PLAN:
[2019-09-30 15:10] VITALS: BP 112/61; PULSE 64; TEMP 98.9
== END 2019-09-30 17:14 | disposition home or self-care (01) | DRG 720 ==
LOC: JER 01:54 → JERBED 06:23 → J8W 18:35
PROVIDERS: ADMIT Internal Medicine; ATTEND Internal Medicine
DX: A41.9 Sepsis, unspecified organism (principal); J45.901 Unspecified asthma with (acute) exacerbation; E83.41 Hypermagnesemia; J47.9 Bronchiectasis, uncomplicated; J96.01 Acute respiratory failure with hypoxia; J10.00 Influenza due to other identified influenza virus with unspecified type of pneumonia; J18.9 Pneumonia, unspecified organism; R59.1 Generalized enlarged lymph nodes
CPT/HCPCS: 36415; 36600; 71045-TC-FY; 71275-TC; 80048; 80053; 81003; 82375; 82803; 83050; 83605; 83735; 84100; 84484; 85025; 85027; 85379; 85610; 85730; 87040; 87070; 87205; 87804; 87899; 90732; 93005; 93010; 94640; 99284-25; G0009; J0131; J7030; Q9967

== ENCOUNTER 2020-04-10 21:41 | Inpatient (IN) | payer OTHER ==
[2020-04-10] MEDS ORDERED: DEXAMETHASONE SOD PHOSPHATE 10 MG/1 ML VIAL ONE (21:52)
[2020-04-10] MEDS ORDERED: ALBUTEROL SO4 2.5/IPRATROPIUM 0.5 INH SOL 3 ML VIAL.NEB. NEB ONE ×2 (21:52→23:11)
[2020-04-10 21:55] VITALS: BMI 34.8
--- NOTE | 2020-04-10 22:13 | PDOC ---
History of Present Illness - General Chief Complaint: Asthma Stated Complaint: ASTHMA ATTACK Time Seen by Provider: 04/10/20 22:06 History Source: Patient, Old Records Exam Limitations: No Limitations - History of Present Illness Initial Comments: 04/10/20 22:06 Linsey Rea is a 34M with PMH asthma presenting with asthma exacerbation and SOB with ? syncope and nosebleeds. Patient reports for the last few days has been having worsening asthma symptoms including SOB and wheezing with chest tightness, has been using nebulizer multiple times as well as inhaler multiple times per day and is out of canisters. Complains of severe nasal congestion for the last 3 months with AM bloody nose, takes no medications for congestion. Has summer allergies and has been blasting air conditioning due to heat. Asthma always worse in summer. Seen in [facility] 2 months ago for similar asthma exacerbation, discharged with pulm follow-up but says insurance did not cover this, never followed-up. Coughed so hard that he says felt lightheaded, was sitting in a chair and did not hit head. Poor PO intake, nausea and vomiting, no diarrhea or abd pain. Per EMS given 10mg DEecadron in ambulance with 1x Combivent. Denies cardiac history, former smoker quit 1 year ago when his son was born. Past History - Medical History Allergies/Adverse Reactions: Allergies Allergy/AdvReac Type Severity Reaction Status Date / Time ketorolac [From Toradol] Allergy Verified 04/10/20 21:55 montelukast Allergy Verified 04/10/20 21:55 Home Medications: Ambulatory Orders Albuterol 0.083% Nebulizer Shivani [Ventolin 0.083% Nebulizer Soln -] 1 neb NEB QID PRN 09/28/19 Albuterol Sulfate Inhaler - [Ventolin HFA Inhaler -] 1 - 2 inh PO QID 09/28/19 Ergocalciferol (Vitamin D2) [Vitamin D2] 50,000 unit PO WEEKLY 09/28/19 Acetaminophen 325 mg PO Q8H PRN 02/02/20 Budesonide/Formeterol Fumarate [SYMBICORT 160/4.5mcg -] 2 puff IH BID #1 inhaler 02/02/20 Prednisone See Taper PO DAILY #15 tablet 02/02/20 Anemia: No Asthma: Yes Cancer: No Cardiac Disorders: No CVA: No COPD: No CHF: No Dementia: No Diabetes: No GI Disorders: No Disorders: No HTN: No Hypercholesterolemia: No Liver Disease: No Seizures: No Thyroid Disease: No - Surgical History Abdominal Surgery: No Appendectomy: No Cardiac Surgery: No Cholecystectomy: No Lung Surgery: No Neurologic Surgery: No Orthopedic Surgery: No - Immunization History Immunization Up to Date: (unknown) - Psycho-Social/Smoking History Smoking History: Never smoked Have you smoked in the past 12 months: No Number of Cigarettes Smoked Daily: 6 Information on smoking cessation initiated: No 'Breaking Loose' booklet given: 03/30/19 - Substance Abuse Hx (Audit-C & DAST Scrn) How often the patient has a drink containing alcohol: Never Score: In Men: 4 or > Positive; In Women: 3 or > Positive: 0 Screen Result (Pos requires Nsg. Audit-10AR): Negative In the last yr the pt used illegal drug/Rx for NonMed reason: No Score: Yes response is considered Positive: 0 Screen Result (Positive result requires Nsg. DAST-10): Negative Review of Systems - Review of Systems Able to Perform ROS?: Yes Constitutional: No: Symptoms Reported HEENTM: No: Symptoms Reported Respiratory: Yes: Cough, Shortness of Breath, SOB with Exertion, SOB at Rest, Productive cough Cardiac (ROS): Yes: Syncope. No: Chest Pain, Irregular Heart Rate, Lightheadedness, Palpitations ABD/GI: Yes: Nausea, Poor Appetite, Poor Fluid Intake, Vomiting. No: Cons tipated, Diarrhea : No: Symptoms Reported Musculoskeletal: No: Symptoms Reported Integumentary: No: Symptoms Reported Neurological: Yes: Headache Endocrine: No: Symptoms Reported Hematologic/Lymphatic: No: Symptoms Reported All Other Systems: Reviewed and Negative *Physical Exam - Vital Signs Last Vital Signs Temp Pulse Resp BP Pulse Ox 98.1 F 107 H 24 H 141/96 98 04/10/20 21:50 04/10/20 21:50 04/10/20 21:50 04/10/20 21:50 04/10/20 21:50 - Physical Exam General Appearance: Yes: Nourished, Appropriately Dressed, Thin, Other (resting comfortably in bed in NAD, breathing normally). No: Apparent Distress HEENT: positive: EOMI, CHASE, Normal Voice, Symmetrical, Pharynx Normal, Hearing Grossly Normal, Other (sclera injected). negative: Scleral Icterus (R), Scleral Icterus (L), Pharyngeal Erythema, Tonsillar Exudate, Tonsillar Erythema, Nasal Congestion Neck: positive: Normal Thyroid, Supple. negative: Tender, Rigid, Decreased range of motion, Stridor, Lymphadenopathy (R), Rigidity, Tender lateral, Tender midline Respiratory/Chest: positive: Wheezing (all whiting inspiratory and expiratory). negative: Chest Tender, Lungs Clear, Normal Breath Sounds, Respiratory Distress, Decreased Breath Sounds, Crackles, Rales, Rhonchi, Stridor Cardiovascular: positive: Regular Rhythm, Tachycardia. negative: Murmur Gastrointestinal/Abdominal: positive: Normal Bowel Sounds, Flat, Soft. negative: Tender, Organomegaly, Protuberent, Distended, Guarding, Rebound, Tende rness, Hernia Musculoskeletal: positive: Normal Inspection. negative: CVA Tenderness, CVA Tenderness (R), CVA Tenderness (L), Decreased Range of Motion Extremity: positive: Normal Capillary Refill, Normal Inspection, Normal Range of Motion, Pedal Edema. negative: Tender, Swelling, Calf Tenderness Integumentary: positive: Normal Color, Dry, Warm. negative: Cyanotic, Erythema Neurologic: positive: Fully Oriented, Alert, Normal Mood/Affect, Normal Response, Motor Strength 5/5 ED Treatment Course - LABORATORY CBC & Chemistry Diagram: 04/10/20 22:39 04/10/20 22:39 Medical Decision Making - Medical Decision Making 04/10/20 23:25 Patient presents with SOB and worsening asthma symptoms with wheezing and cough. SpO2 96% on arrival, but diffusely wheezy with chest tightness. Likely asthma or COPD but evaluation for PNA given congestion and coughing. Getting CBC/CMP/Mag/E CG/CXR for further evaluation. Will need admission for SOB and asthma exacerbation. Giving 2mg IV Mag, 4x Duonebs, albuterol inhaler for symptoms. Already given EMS Decadron. Labs notable for: - CBC WNL - CMP WNL - Mag WNL 04/10/20 23:58 ECG shows NSR with HR 83 with QTc 90, no CONNOR/D or TWI. 04/11/20 02:09 Discussed case with admitting resident, good for admit to med surg under Dr. Davidson. 04/11/20 05:14 Ordered guafenescin for coughing fits. Discharge - Discharge Information Problems reviewed: Yes Clinical Impression/Diagnosis: Asthma exacerbation Qualifiers: Asthma severity: unspecified severity Asthma persistence: persistent Qualified Code(s): J45.901 - Unspecified asthma with (acute) exacerbation Condition: Fair - Admission Yes - Follow up/Referral - Patient Discharge Instructions - Post Discharge Activity
[2020-04-10] MEDS ORDERED: ALBUTEROL SO4 HFA INHALER IH ONE ×2 (22:14→22:25)
[2020-04-10 22:48] LABS: BASO % 0.5 % (0-2.0); EOS % 6.5 % (0-4.5); HEMATOCRIT 43.8 % (35.4-49); HEMOGLOBIN 14.3 GM/dL (11.7-16.9); LYMPH % 23.1 % (8-40); MCH 28.3 pg (25.7-33.7); MCHC 32.7 g/dl (32.0-35.9); MEAN CELL VOLUME 86.6 fl (80-96); MEAN PLT VOLUME 7.5 fl (7.5-11.1); MONO % 5.7 % (3.8-10.2); NEUT % 64.2 % (42.8-82.8); PLATELET COUNT 231 K/MM3 (134-434); RBC 5.05 M/mm3 (4.00-5.60); WHITE BLOOD COUNT 6.5 K/mm3 (4.0-10.0)
--- NOTE | 2020-04-10 22:51 | PDOC ---
Documentation entered by Shirin Dias SCRIBE, acting as scribe for Mary Baumann MD. Mary Baumann MD: This documentation has been prepared by the scribe, Shirin Dias SCRIBE, under my direction and personally reviewed by me in its entirety. I confirm that the documentation accurately reflects all work, treatment, procedures, and medical decision making performed by me. Attending Attestation - Resident Resident Name: Jason Armendariz - ED Attending Attestation I have performed the following: I have examined & evaluated the patient, The case was reviewed & discussed with the resident, I agree w/resident's findings & plan, Exceptions are as noted - HPI HPI: 04/10/20 22:01 Patient is a 34 year old male with a significant past medical history of allergies (chronic nasal congestion) and asthma who presents to the ED with asthma and SOB since earlier today. Patient stated he has had a really bad cough x3 months, has been feeling nauseous, had 2 episodes of NBNB vomiting today, passed out - "fell on the floor", and often wakes up with nose bleeds. Patient also disclosed he has not been eating all week "only milk and water" due to his "feeling of sickness". Patient stated he often uses nebulizer machine at home. Patient stated he is feeling tired, has a headache and is feeling nauseous along with chest tightness. Patient denies: any head trauma, chest pain abdominal pain, any previous surgeri es, or past intubations Allergies: ketorolac and montelukast - Physicial Exam PE: 04/10/20 22:49 wnwd 34 yo male BIBA for wheezing 04/10/20 23:00 Normocephalic atraumatic Significant nasal congestion Oropharynx uvula midline, no edema Lungs inspiratory and expiratory wheezing CVS regular rate and rhythm S1-S2 Abdomen flat,Nontender Skin warm and dry Neuro, no gross focal deficits - Medical Decision Making 04/10/20 23:26 plan MDIs, pt received decadron in the ambulance, additional resp treatments, admission 04/11/20 00:06 chemistries and cbc are unremarkable ekg NSR @ 83 bpm, early repol cxr napd asthma exacerbation 04/11/20 00:33 Discharge - Discharge Information Problems reviewed: Yes Clinical Impression/Diagnosis: Asthma exacerbation Qualifiers: Asthma severity: unspecified severity Asthma persistence: persistent Qualified Code(s): J45.901 - Unspecified asthma with (acute) exacerbation Condition: Fair - Follow up/Referral - Patient Discharge Instructions - Post Discharge Activity
[2020-04-10] MEDS ORDERED: MAGNESIUM SULF 50% (8.12 MEQ/2 ML-1 GM VIAL) IVPB ONE (22:56)
[2020-04-10] MEDS ORDERED: MAGNESIUM 1GM/D5W - 2 GM/200 ML IVPB IVPB ONE (23:12)
[2020-04-10] MEDS ORDERED: MAGNESIUM SULF 50% (8.12 MEQ/2 ML-1 GM VIAL) ONE (23:14)
[2020-04-10 23:17] LABS: ALBUMIN 3.4 g/dl (3.4-5.0); BILIRUBIN,TOTAL 0.4 mg/dL (0.2-1); BLOOD UREA NITROGEN 13.6 mg/dL (7-18); CALCIUM 8.9 mg/dL (8.5-10.1); CREATININE 0.9 mg/dL (0.55-1.3); MAGNESIUM 2.2 mg/dL (1.8-2.4); POTASSIUM 4.4 mmol/L (3.5-5.1); TOT PROT 7.1 g/dl (6.4-8.2)
[2020-04-10] MEDS: ALBUTEROL SO4 2.5/IPRATROPIUM 0.5 INH SOL 3 ML VIAL.NEB. NEB SCH ×3 (23:36→23:52)
[2020-04-11] MEDS ORDERED: ALBUTEROL SO4 2.5/IPRATROPIUM 0.5 INH SOL 3 ML VIAL.NEB. NEB PRN (02:56)
[2020-04-11] MEDS ORDERED: LORATADINE 10 MG TABLET PO PRN (02:57)
--- NOTE | 2020-04-11 03:02 | HP ---
<Jeff Golden - Last Filed: 04/11/20 04:05> CHIEF COMPLAINT: SOB & wheezing PCP: Dr. Vidhya Pereira HISTORY OF PRESENT ILLNESS: 34 y.o. M PMHx of asthma (multiple hospitalizations, most recent was 2 months ago, no intubations). Patient stated he has been having worsening symptoms of wheezing, coughing and chest tightness. Has been using his home nebs multiple times a day but they have provided minimal relief. Also states he has been having seasonal allergies (no home antihistamine), waking up with a bloody nose which is making his nasal congestion worse. Two months ago the patient was admitted to [facility] for an asthma exacerbation and discharge instructions to follow up with a sales developer but insurance wouldnt cover it so he never went to the appointment. Patient admits to a poor oral intake over the past week and is having severe congestion. Patient denies headache, N/V/D, chest pain. ER course was notable for: (1) 2mg IV Mg (2) 4x Duonebs (3) Albuterol inhaler Recent Travel: None PAST MEDICAL HISTORY: Asthma PAST SURGICAL HISTORY: None Social History: Smoking: None Alcohol: None Drugs: None Allergies ketorolac [From Toradol] Allergy (Verified 04/10/20 21:55) montelukast Allergy (Verified 04/10/20 21:55) HOME MEDICATIONS: Home Medications Medication Instructions Recorded Albuterol 0.083% Nebulizer Shivani 1 neb NEB QID PRN 09/28/19 [Ventolin 0.083% Nebulizer Soln -] Albuterol Sulfate Inhaler - 1 - 2 inh PO QID 09/28/19 [Ventolin HFA Inhaler -] Ergocalciferol (Vitamin D2) 50,000 unit PO WEEKLY 09/28/19 [Vitamin D2] Acetaminophen 325 mg PO Q8H PRN 02/02/20 Budesonide/Formeterol Fumarate 2 puff IH BID #1 inhaler 02/02/20 [SYMBICORT 160/4.5mcg -] Prednisone See Taper PO DAILY #15 tablet 02/02/20 REVIEW OF SYSTEMS CONSTITUTIONAL: Absent: fever, chills, diaphoresis, generalized weakness, malaise, loss of appetite, weight change HEENT: Nasal congestion Absent: rhinorrhea, throat pain, throat swelling, difficulty swallowing, mouth swelling, ear pain, eye pain, visual changes CARDIOVASCULAR: Absent: chest pain, syncope, palpitations, irregular heart rate, lightheadedness, peripheral edema RESPIRATORY: Shortness of breath Absent: cough, dyspnea with exertion, orthopnea, wheezing, stridor, hemoptysis GASTROINTESTINAL: Absent: abdominal pain, abdominal distension, nausea, vomiting, diarrhea, constipation, melena, hematochezia GENITOURINARY: Absent: dysuria, frequency, urgency, hesitancy, hematuria, flank pain, genital pain MUSCULOSKELETAL: Absent: myalgia, arthralgia, joint swelling, back pain, neck pain SKIN: Absent: rash, itching, pallor HEMATOLOGIC/IMMUNOLOGIC: Absent: easy bleeding, easy bruising, lymphadenopathy, frequent infections ENDOCRINE: Absent: unexplained weight gain, unexplained weight loss, heat intolerance, cold intolerance NEUROLOGIC: Absent: headache, focal weakness or paresthesias, dizziness, unsteady gait, seizure, mental status changes, bladder or bowel incontinence PSYCHIATRIC: Absent: anxiety, depression, suicidal or homicidal ideation, hallucinations. PHYSICAL EXAMINATION Vital Signs - 24 hr 04/10/20 04/11/20 21:50 01:31 Temperature 98.1 F 97.5 F L Pulse Rate 107 H Pulse Rate [ 75 Right Radial] Respiratory 24 H 18 Rate Blood Pressure 141/96 Blood Pressure 121/79 [Right Arm] O2 Sat by Pulse 98 97 Oximetry (%) GENERAL: Awake, alert, and fully oriented, in no acute distress. HEAD: Normal with no signs of trauma. EYES: Pupils equal, round and reactive to light, extraocular movements intact, sclera anicteric, conjunctiva clear. EARS, NOSE, THROAT: Oropharynx clear without exudates. Moist mucous membranes. NECK: No JVD, or masses. LUNGS: Bilateral crackles & mild wheezing, No accessory muscle use. HEART: Regular rate and rhythm, normal S1 and S2 without murmur, rub or gallop. ABDOMEN: Soft, nontender, not distended, normoactive bowel sounds, no guarding, no rebound, no masses. MUSCULOSKELETAL: Normal range of motion at all joints. No bony deformities or tenderness. No CVA tenderness. UPPER EXTREMITIES: 2+ pulses, warm, well-perfused. No peripheral edema. LOWER EXTREMITIES: 2+ pulses, warm, well-perfused. No calf tenderness. No peripheral edema. NEUROLOGICAL: Cranial nerves II-XII intact. Normal speech. PSYCHIATRIC: Cooperative. Good eye contact. Appropriate mood and affect. SKIN: Warm, dry, normal turgor, no rashes or lesions noted. Laboratory Results - last 24 hr 04/10/20 04/10/20 22:39 22:39 WBC 6.5 RBC 5.05 Hgb 14.3 Hct 43.8 MCV 86.6 MCH 28.3 MCHC 32.7 RDW 15.0 Plt Count 231 MPV 7.5 Absolute Neuts (auto) 4.1 Neutrophils % 64.2 Lymphocytes % 23.1 Monocytes % 5.7 Eosinophils % 6.5 H D Basophils % 0.5 Nucleated RBC % 0 Sodium 141 Potassium 4.4 Chloride 106 Carbon Dioxide 30 Anion Gap 6 L BUN 13.6 Creatinine 0.9 Est GFR (CKD-EPI)AfAm 129.61 Est GFR (CKD-EPI)NonAf 111.83 Random Glucose 90 Calcium 8.9 Magnesium 2.2 Total Bilirubin 0.4 AST 27 ALT 19 Alkaline Phosphatase 55 Total Protein 7.1 Albumin 3.4 ASSESSMENT/PLAN: 34 y.o. M PMHx of asthma (multiple hospitalizations, no intubations) presenting with wheezing, cough, SOB for several days. # SOB - Secondary to Asthma exacerbation and uncontrolled seasonal allergies - Currently no indication for ICU admission; O2 95% on room air, RR 18 - Would recommend checking peak flow monitoring to ensure 60-80% of maximum; if <60% consider more aggressive therapy - Vitals Q4, O2 monitoring - Singulair held due to patient allergy, - Duonebs 1 amp Q4H PRN - Claritin 10mg PO daily - Prednisone 40mg PO daily - Methylprednisolone 60mg IV Push - Consult Pulm (Dr. Cyr) - Consult patient on outpatient f/u # Covid - Covid PCR Ordered - PCR ordered due to geographic location of pandemic - Placed in isolation precautions # FEN - Patient encourage PO intake of fluids - Patient on normal diet # DVT Prophylaxis - Lovenox 40mg SQ daily # Dispo - Patient admittted to Med-surg - Patient O2 levels will be continued to monitor for any acute changes ATTENDING PHYSICIAN STATEMENT I saw and evaluated the patient. I reviewed the resident's note and discussed the case with the resident. I agree with the resident's findings and plan as documented. SUBJECTIVE: OBJECTIVE: ASSESSMENT AND PLAN: <Sharee De Jesus - Last Filed: 04/11/20 06:53> CHIEF COMPLAINT: PCP: HISTORY OF PRESENT ILLNESS: ER course was notable for: (1) (2) (3) Recent Travel: PAST MEDICAL HISTORY: PAST SURGICAL HISTORY: Social History: Smoking: Alcohol: Drugs: Allergies ketorolac [From Toradol] Allergy (Verified 04/10/20 21:55) montelukast Allergy (Verified 04/10/20 21:55) HOME MEDICATIONS: Home Medications Medication Instructions Recorded Albuterol 0.083% Nebulizer Shivani 1 neb NEB QID PRN 09/28/19 [Ventolin 0.083% Nebulizer Soln -] Albuterol Sulfate Inhaler - 1 - 2 inh PO QID 09/28/19 [Ventolin HFA Inhaler -] Ergocalciferol (Vitamin D2) 50,000 unit PO WEEKLY 09/28/19 [Vitamin D2] Acetaminophen 325 mg PO Q8H PRN 02/02/20 Budesonide/Formeterol Fumarate 2 puff IH BID #1 inhaler 02/02/20 [SYMBICORT 160/4.5mcg -] Prednisone See Taper PO DAILY #15 tablet 02/02/20 REVIEW OF SYSTEMS CONSTITUTIONAL: Absent: fever, chills, diaphoresis, generalized weakness, malaise, loss of appetite, weight change HEENT: Absent: rhinorrhea, nasal congestion, throat pain, throat swelling, difficulty swallowing, mouth swelling, ear pain, eye pain, visual changes CARDIOVASCULAR: Absent: chest pain, syncope, palpitations, irregular heart rate, lightheadedness, peripheral edema RESPIRATORY: Absent: cough, shortness of breath, dyspnea with exertion, orthopnea, wheezing, stridor, hemoptysis GASTROINTESTINAL: Absent: abdominal pain, abdominal distension, nausea, vomiting, diarrhea, constipation, melena, hematochezia GENITOURINARY: Absent: dysuria, frequency, urgency, hesitancy, hematuria, flank pain, genital pain MUSCULOSKELETAL: Absent: myalgia, arthralgia, joint swelling, back pain, neck pain SKIN: Absent: rash, itching, pallor HEMATOLOGIC/IMMUNOLOGIC: Absent: easy bleeding, easy bruising, lymphadenopathy, frequent infections ENDOCRINE: Absent: unexplained weight gain, unexplained weight loss, heat intolerance, cold intolerance NEUROLOGIC: Absent: headache, focal weakness or paresthesias, dizziness, unsteady gait, seizure, mental status changes, bladder or bowel incontinence PSYCHIATRIC: Absent: anxiety, depression, suicidal or homicidal ideation, hallucinations. PHYSICAL EXAMINATION Vital Signs - 24 hr 04/10/20 04/11/20 04/11/20 21:50 01:31 06:05 Temperature 98.1 F 97.5 F L Pulse Rate 107 H Pulse Rate [ 75 Right Radial] Respiratory 24 H 18 Rate Blood Pressure 141/96 Blood Pressure 121/79 [Right Arm] O2 Sat by Pulse 98 97 97 Oximetry (%) 04/11/20 06:37 Temperature 98.0 F Pulse Rate Pulse Rate [ 61 Right Radial] Respiratory 18 Rate Blood Pressure Blood Pressure 110/65 [Right Arm] O2 Sat by Pulse 98 Oximetry (%) GENERAL: Awake, alert, and fully oriented, in no acute distress. HEAD: Normal with no signs of trauma. EYES: Pupils equal, round and reactive to light, extraocular movements intact, sclera anicteric, conjunctiva clear. No lid lag. EARS, NOSE, THROAT: Ears normal, nares patent, oropharynx clear without exudates. Moist mucous membranes. NECK: Normal range of motion, supple without lymphadenopathy, JVD, or masses. LUNGS: Breath sounds equal, clear to auscultation bilaterally. No wheezes, and no crackles. No accessory muscle use. HEART: Regular rate and rhythm, normal S1 and S2 without murmur, rub or gallop. ABDOMEN: Soft, nontender, not distended, normoactive bowel sounds, no guarding, no rebound, no masses. No hepatomegaly or splenomegaly. MUSCULOSKELETAL: Normal range of motion at all joints. No bony deformities or tenderness. No CVA tenderness. UPPER EXTREMITIES: 2+ pulses, warm, well-perfused. No cyanosis. No clubbing. No peripheral edema. LOWER EXTREMITIES: 2+ pulses, warm, well-perfused. No calf tenderness. No p eripheral edema. NEUROLOGICAL: Cranial nerves II-XII intact. Normal speech. Normal gait. PSYCHIATRIC: Cooperative. Good eye contact. Appropriate mood and affect. SKIN: Warm, dry, normal turgor, no rashes or lesions noted, normal capillary refill. Laboratory Results - last 24 hr 04/10/20 04/10/20 22:39 22:39 WBC 6.5 RBC 5.05 Hgb 14.3 Hct 43.8 MCV 86.6 MCH 28.3 MCHC 32.7 RDW 15.0 Plt Count 231 MPV 7.5 Absolute Neuts (auto) 4.1 Neutrophils % 64.2 Lymphocytes % 23.1 Monocytes % 5.7 Eosinophils % 6.5 H D Basophils % 0.5 Nucleated RBC % 0 Sodium 141 Potassium 4.4 Chloride 106 Carbon Dioxide 30 Anion Gap 6 L BUN 13.6 Creatinine 0.9 Est GFR (CKD-EPI)AfAm 129.61 Est GFR (CKD-EPI)NonAf 111.83 Random Glucose 90 Calcium 8.9 Magnesium 2.2 Total Bilirubin 0.4 AST 27 ALT 19 Alkaline Phosphatase 55 Total Protein 7.1 Albumin 3.4 ASSESSMENT/PLAN: Visit type - Emergency Visit Emergency Visit: Yes ED Registration Date: 04/10/20 Care time: The patient presented to the Emergency Department on the above date and was hospitalized for further evaluation of their emergent condition. - New Patient This patient is new to me today: Yes Date on this admission: 04/11/20 - Critical Care Critical Care patient: No ATTENDING PHYSICIAN STATEMENT I saw and evaluated the patient. I reviewed the resident's note and discussed the case with the resident. I agree with the resident's findings and plan as documented. SUBJECTIVE: OBJECTIVE: ASSESSMENT AND PLAN: 34 y.o. Male with a PMHx notable for asthma (multiple hospitalizations, no intubations) presenting with wheezing, cough, SOB likely asthmatic exacerbation # SOB - Secondary to Asthma exacerbation and uncontrolled seasonal allergies - follow-up chest xray results - Agree with steroids/nebs - COVID-19 pcr pending
[2020-04-11] MEDS ORDERED: guaiFENesin 200 MG/10 ML 10 ML UNIT-DOSE CUPS PO ONE (03:35)
[2020-04-11] MEDS ORDERED: guaiFENesin 200 MG/10 ML 10 ML UNIT-DOSE CUPS ONE (03:38)
--- NOTE | 2020-04-11 09:33 | EKG ---
Test Reason : Blood Pressure : / mmHG Vent. Rate : 083 BPM Atrial Rate : 083 BPM P-R Int : 130 ms QRS Dur : 090 ms QT Int : 374 ms P-R-T Axes : 063 071 064 degrees QTc Int : 439 ms NORMAL SINUS RHYTHM ST ELEVATION, CONSIDER EARLY REPOLARIZATION BORDERLINE ECG WHEN COMPARED WITH ECG OF 02-FEB-2020 00:30, NO SIGNIFICANT CHANGE WAS FOUND Confirmed by Donna Whitlock ([id number]) on 04/11/2020 9:32:55 AM Referred By: Confirmed By:Donna Whitlock
--- NOTE | 2020-04-11 09:42 | PN ---
Physical Exam: SUBJECTIVE: Patient seen and examined in the ED awaiting bed assignment. had a coughing spell at 3am. feels short of breath at rest. OBJECTIVE: +wheezing mainly on left posterior lung. on room air. mild tachypnea Patient is a 34 year old male with a significant past medical history of asthma (multiple hospitalizations, most recent was 2 months ago, no intubations). Patient stated he has been having worsening symptoms of wheezing, coughing and chest tightness. Has been using his home nebs multiple times a day but they have provided minimal relief. He does not have a PCP or meat scrubber. will need PCP assigned prior to d/c covid status: pending Vital Signs Period Temp Pulse Resp BP Sys/New Pulse Ox Last 24 Hr 97.3 F-98.1 F 61-107 18-24 108-141/65-96 93-98 GENERAL: The patient is awake, alert, and fully oriented, in no acute distress. HEAD: Normal with no signs of trauma. EYES: PERRL, extraocular movements intact, sclera anicteric, conjunctiva clear. No ptosis. ENT: Ears normal, nares patent, oropharynx clear without exudates, moist mucous membranes. NECK: Trachea midline, full range of motion, supple. LUNGS: + wheezing left posterior upper lobe, mild tachypnea at rest. HEART: Regular rate and rhythm ABDOMEN: Soft, nontender, nondistended, normoactive bowel sounds EXTREMITIES: no edema. NEUROLOGICAL: Normal speech, gait not observed. Laboratory Results - last 24 hr 04/10/20 04/10/20 22:39 22:39 WBC 6.5 RBC 5.05 Hgb 14.3 Hct 43.8 MCV 86.6 MCH 28.3 MCHC 32.7 RDW 15.0 Plt Count 231 MPV 7.5 Absolute Neuts (auto) 4.1 Neutrophils % 64.2 Lymphocytes % 23.1 Monocytes % 5.7 Eosinophils % 6.5 H D Basophils % 0.5 Nucleated RBC % 0 Sodium 141 Potassium 4.4 Chloride 106 Carbon Dioxide 30 Anion Gap 6 L BUN 13.6 Creatinine 0.9 Est GFR (CKD-EPI)AfAm 129.61 Est GFR (CKD-EPI)NonAf 111.83 Random Glucose 90 Calcium 8.9 Magnesium 2.2 Total Bilirubin 0.4 AST 27 ALT 19 Alkaline Phosphatase 55 Total Protein 7.1 Albumin 3.4 Active Medications Generic Name Dose Route Start Last Admin Trade Name Freq PRN Reason Stop Dose Admin Albuterol/Ipratropium 1 amp 04/11/20 02:56 Duoneb - NEB Q4H PRN SHORTNESS OF BREATH Loratadine 10 mg 04/11/20 02:57 Claritin - PO DAILY PRN ALLERGIES Methylprednisolone Sodium Succinate 40 mg 04/11/20 09:45 Solu-Medrol - IVPUSH Q6H-IV SANTIAGO ASSESSMENT/PLAN: Problem List - Problems (1) Asthma exacerbation Assessment/Plan: start on solumedrol taper for wheezing, with GI protection, Protonix monitor airway, monitor labs, vitals currently patient is tolerating room air pulmonary following Code(s): J45.901 - UNSPECIFIED ASTHMA WITH (ACUTE) EXACERBATION Qualifiers: Asthma severity: unspecified severity Asthma persistence: persistent Qualified Code(s): J45.901 - Unspecified asthma with (acute) exacerbation (2) Nasal congestion Assessment/Plan: ocean spray prn Code(s): R09.81 - NASAL CONGESTION (3) DVT prophylaxis Assessment/Plan: on lovenox 40mg daily Code(s): Z29.9 - ENCOUNTER FOR PROPHYLACTIC MEASURES, UNSPECIFIED (4) Prophylactic measure Assessment/Plan: fen tolerating PO monitor electrolytes regular diet full code Code(s): Z29.9 - ENCOUNTER FOR PROPHYLACTIC MEASURES, UNSPECIFIED Visit type - Emergency Visit Emergency Visit: Yes ED Registration Date: 04/10/20 Care time: The patient presented to the Emergency Department on the above date and was hospitalized for further evaluation of their emergent condition. - New Patient This patient is new to me today: Yes Date on this admission: 04/11/20 - Critical Care Critical Care patient: No - Discharge Referral Referred to [facility] Med P.C.: No
[2020-04-11] MEDS ORDERED: methylPREDNISolone NA SUCC 40 MG/1 ML VIAL ONE (09:46)
[2020-04-11] MEDS: methylPREDNISolone NA SUCC 40 MG/1 ML VIAL IVPUSH SCH ×3 (09:47→20:04)
[2020-04-11] MEDS: PANTOPRAZOLE 40 MG TABLET PO SCH (09:58)
[2020-04-11] MEDS ORDERED: LORATADINE 10 MG TABLET PO SCH (10:00)
--- NOTE | 2020-04-11 12:34 | CON.PULM ---
Consult Consult Specialty:: PULMONARY Referred by:: RACHEL Castro Reason for Consultation:: shortness of breath - History of Present Illness Chief Complaint: shortness of breath History of Present Illness: 34yo male with h/o asthma who was admitted with worsening shortness of breath and wheezing x 2 days. Reports a nonproductive cough, chest tightness. Reports compliance with his inhalers. No fevers, chills or sweats. No recent travel or sick contacts. He is a former smoker. CXR without any acute findings. - History Source History Provided By: Patient, Medical Record Limitations to Obtaining History: No Limitations - Past Medical History Pulmonary: Yes: Asthma. No: COPD, O2 Dependent - Past Surgical History Past Surgical History: Yes: None - Alcohol/Substance Use Hx Alcohol Use: No History of Substance Use: reports: None - Smoking History Smoking history: Never smoked Have you smoked in the past 12 months: No Aproximately how many cigarettes per day: 6 Home Medications - Allergies Allergies/Adverse Reactions: Allergies Allergy/AdvReac Type Severity Reaction Status Date / Time ketorolac [From Toradol] Allergy Verified 04/10/20 21:55 montelukast Allergy Verified 04/10/20 21:55 - Home Medications Home Medications: Ambulatory Orders Albuterol 0.083% Nebulizer Shivani [Ventolin 0.083% Nebulizer Soln -] 1 neb NEB QID PRN 09/28/19 Albuterol Sulfate Inhaler - [Ventolin HFA Inhaler -] 1 - 2 inh PO QID 09/28/19 Ergocalciferol (Vitamin D2) [Vitamin D2] 50,000 unit PO WEEKLY 09/28/19 Acetaminophen 325 mg PO Q8H PRN 02/02/20 Budesonide/Formeterol Fumarate [SYMBICORT 160/4.5mcg -] 2 puff IH BID #1 inhaler 02/02/20 Prednisone See Taper PO DAILY #15 tablet 02/02/20 Review of Systems - Review of Systems Constitutional: reports: Weakness. denies: Chills, Fever Eyes: denies: Recent Change in Vision HENT: denies: Nasal Congestion, Throat Pain Neck: denies: Stiffness, Tenderness Cardiovascular: reports: Shortness of Breath. denies: Chest Pain, Palpitations Respiratory: reports: Cough, SOB, Wheezing. denies: Hemoptysis Gastrointestinal: denies: Abdominal Pain, Nausea, Vomiting Genitourinary: denies: Dysuria, Hematuria Neurological: denies: Dizziness, Headache Endocrine: denies: Unexplained Weight Loss Physical Exam Vital Sings: Vital Signs Temperature 97.3 F L 04/11/20 09:18 Pulse Rate 88 04/11/20 09:18 Respiratory Rate 18 04/11/20 10:00 Blood Pressure 108/74 04/11/20 09:18 O2 Sat by Pulse Oximetry (%) 94 L 04/11/20 10:00 Constitutional: Yes: Calm Eyes: Yes: Conjunctiva Clear, EOM Intact HENT: Yes: Atraumatic, Normocephalic Neck: Yes: Supple, Trachea Midline Cardiovascular: Yes: Regular Rate and Rhythm Respiratory: Yes: Rhonchi, Wheezes ...Clubbing: No Gastrointestinal: Yes: Normal Bowel Sounds, Soft. No: Tenderness Edema: No Neurological: Yes: Alert, Oriented Labs: CBC, BMP 04/10/20 22:39 04/10/20 22:39 Imaging - Results Chest X-ray: Report Reviewed, Image Reviewed (no infiltrates) Assessment/Plan Acute Asthma Exacerbation - IV medrol - inhaled bronchodilators standing and PRN - O2 to keep SpO2 >90% - monitor peak flow - DVT prophylaxis Thank you for this consult Ron Irizarry MD
[2020-04-11] MEDS ORDERED: ALBUTEROL SO4 HFA INHALER IH PRN (19:57)
[2020-04-12] MEDS: methylPREDNISolone NA SUCC 40 MG/1 ML VIAL IVPUSH SCH ×3 (02:07→21:25)
[2020-04-12] MEDS: PANTOPRAZOLE 40 MG TABLET PO SCH (09:25)
[2020-04-12] MEDS: SODIUM CHLORIDE NASAL SPRAY 44 ML BOTTLE NS SCH ×2 (09:25→21:24)
--- NOTE | 2020-04-12 09:52 | PN ---
Progress Note (short form) - Note Progress Note: PULMONARY States breathing is improving but still some dyspnea, cough and wheezing. Vital Signs Period Temp Pulse Resp BP Sys/New Pulse Ox Last 24 Hr 97.2 F-98.5 F 69-108 18-26 118-140/71-83 94-97 Gen: less tachypneic Heart: RRR Lung: scattered wheezes, rhonchi Abd: soft, nontender Ext: no edema CBC, BMP 04/10/20 22:39 04/10/20 22:39 Active Medications Albuterol Sulfate (Ventolin Hfa Inhaler -) 2 puff IH Q6H PRN PRN Reason: SHORT OF BREATH/WHEEZING Last Admin: 04/11/20 20:04 Dose: 2 puff Documented by: Albuterol/Ipratropium (Duoneb -) 1 amp NEB Q4H PRN PRN Reason: SHORTNESS OF BREATH Budesonide/Formoterol Fumarate (Symbicort 160/4.5mcg -) 2 puff IH BID SANTIAGO Loratadine (Claritin -) 10 mg PO DAILY PRN PRN Reason: ALLERGIES Methylprednisolone Sodium Succinate (Solu-Medrol -) 40 mg IVPUSH BID SANTIAGO Pantoprazole Sodium (Protonix -) 40 mg PO DAILY [facility] Last Admin: 04/12/20 09:25 Dose: 40 mg Documented by: Sodium Chloride ([place]al [place] -) 2 spray NS BID [facility] Last Admin: 04/12/20 09:25 Dose: 2 sprays Documented by: A/P Acute Asthma Exacerbation - can taper medrol to BID - inhaled bronchodilators standing and PRN - O2 to keep SpO2 >90% - monitor peak flow - DVT prophylaxis
--- NOTE | 2020-04-12 09:55 | PN ---
Physical Exam: SUBJECTIVE: Patient seen and examined. Reports feeling better than yesterday. Denies SOB, denies pain. OBJECTIVE: 34 y.o. male Hx of seasonal allergies, asthma came to ED c/o SOB and "asthma attack" Patient has history of multiple hospitalizations d/t asthma but no hx of intubation. Last hospitalization was 2 months ago. Pt stated he had been having worsening of his asthma symptoms with minimal relief with his home nebulizers which he was using multiple times a day. 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 Pt is on room air, + BL wheezing both lung whiting however improved from yesterday, no cough, Covid negative. Vital Signs Period Temp Pulse Resp BP Sys/New Pulse Ox Last 24 Hr 97.2 F-98.5 F 69-108 18-26 118-140/71-83 94-97 GENERAL: The patient is awake, alert, and fully oriented, in no acute distress. HEAD: Normal with no signs of trauma. EYES: PERRL, extraocular movements intact, sclera anicteric, conjunctiva clear. No ptosis. ENT: Ears normal, nares patent, oropharynx clear without exudates, moist mucous membranes. NECK: Trachea midline, full range of motion, supple. LUNGS: + wheezes left upper lobe, good chest expansion, no crackles or rales HEART: Regular rate and rhythm, S1, S2 without murmur, rub or gallop. ABDOMEN: Soft, nontender, nondistended, normoactive bowel sounds, no guarding, no rebound, no hepatosplenomegaly, no masses. EXTREMITIES: 2+ pulses, warm, well-perfused, no edema. NEUROLOGICAL: Cranial nerves II through XII grossly intact. Normal speech, gait not observed. PSYCH: Normal mood, normal affect. SKIN: Warm, dry, normal turgor, no rashes or lesions noted Active Medications Generic Name Dose Route Start Last Admin Trade Name Freq PRN Reason Stop Dose Admin Albuterol Sulfate 2 puff 04/11/20 19:57 04/11/20 20:04 Ventolin Hfa Inhaler - IH 2 puff Q6H PRN Administration SHORT OF BREATH/WHEEZING Albuterol/Ipratropium 1 amp 04/11/20 02:56 Duoneb - NEB Q4H PRN SHORTNESS OF BREATH Budesonide/Formoterol Fumarate 2 puff 04/12/20 10:00 Symbicort 160/4.5mcg - IH BID SANTIAGO Loratadine 10 mg 04/11/20 02:57 Claritin - PO DAILY PRN ALLERGIES Methylprednisolone Sodium Succinate 40 mg 04/12/20 22:00 Solu-Medrol - IVPUSH BID SANTIAGO Pantoprazole Sodium 40 mg 04/11/20 10:00 04/12/20 09:25 Protonix - PO 40 mg DAILY SANTIAGO Administration Sodium Chloride 2 spray 04/12/20 10:00 04/12/20 09:25 [place] Nasal [place] - NS 2 sprays BID SANTIAGO Administration ASSESSMENT/PLAN: Problem List - Problems (1) Asthma exacerbation Assessment/Plan: taper solu-medrol to 40mg IV BID plan to taper to PO steroids tomorrow monitor airway, monitor labs, vitals currently patient is tolerating room air obtain pre-post respiratory status start pt on ICS/LABA Breo-Ellipta 200-25 mcg 1 puff twice a day (called in to [facility] pharmacy, covered by insurance) continue ventolin rescue inh pulmonary following will set up apt for next week at [place] Problems reviewed: Yes Code(s): J45.901 - UNSPECIFIED ASTHMA WITH (ACUTE) EXACERBATION Qualifiers: Asthma severity: moderate Asthma persistence: persistent Qualified Code(s): J45.41 - Moderate persistent asthma with (acute) exacerbation (2) Nasal congestion Assessment/Plan: ocean spray prn Problems reviewed: Yes Code(s): R09.81 - NASAL CONGESTION (3) DVT prophylaxis Assessment/Plan: on lovenox 40mg daily Problems reviewed: Yes Code(s): Z29.9 - ENCOUNTER FOR PROPHYLACTIC MEASURES, UNSPECIFIED (4) Prophylactic measure Assessment/Plan: fen tolerating PO monitor electrolytes regular diet full code Problems reviewed: Yes Code(s): Z29.9 - ENCOUNTER FOR PROPHYLACTIC MEASURES, UNSPECIFIED Visit type - Emergency Visit Emergency Visit: Yes ED Registration Date: 04/10/20 Care time: The patient presented to the Emergency Department on the above date and was hospitalized for further evaluation of their emergent condition. - New Patient This patient is new to me today: No - Critical Care Critical Care patient: No - Discharge Referral Referred to [facility] Med P.C.: No
[2020-04-12] MEDS ORDERED: BUDESONIDE/FORMETEROL FUMARATE 160/4.5 mcg INHALER IH SCH (10:00)
[2020-04-12 10:56] LABS: BASO % 0.2 % (0-2.0); HEMATOCRIT 48.6 % (35.4-49); HEMOGLOBIN 15.8 GM/dL (11.7-16.9); LYMPH % 11.7 % (8-40); MCH 28.2 pg (25.7-33.7); MCHC 32.6 g/dl (32.0-35.9); MEAN CELL VOLUME 86.4 fl (80-96); MEAN PLT VOLUME 8.2 fl (7.5-11.1); MONO % 4.3 % (3.8-10.2); NEUT % 83.8 % (42.8-82.8); PLATELET COUNT 326 K/MM3 (134-434); RBC 5.62 M/mm3 (4.00-5.60); RDW 15.2 % (11.9-15.9); WHITE BLOOD COUNT 9.8 K/mm3 (4.0-10.0)
[2020-04-12] MEDS: ENOXAPARIN NA (PORCINE) 40 MG/0.4 ML DISP.SYRIN SQ SCH (11:15)
[2020-04-12 11:18] LABS: ALBUMIN 3.6 g/dl (3.4-5.0); BILIRUBIN,TOTAL 0.4 mg/dL (0.2-1); BLOOD UREA NITROGEN 23.5 mg/dL (7-18); CALCIUM 9.1 mg/dL (8.5-10.1); MAGNESIUM 2.6 mg/dL (1.8-2.4); POTASSIUM 4.8 mmol/L (3.5-5.1); TOT PROT 7.7 g/dl (6.4-8.2)
[2020-04-13 08:09] LABS: BASO % 0.7 % (0-2.0); HEMATOCRIT 45.9 % (35.4-49); HEMOGLOBIN 14.9 GM/dL (11.7-16.9); LYMPH % 16.4 % (8-40); MCH 27.7 pg (25.7-33.7); MCHC 32.5 g/dl (32.0-35.9); MEAN CELL VOLUME 85.3 fl (80-96); MONO % 5.7 % (3.8-10.2); NEUT % 77.2 % (42.8-82.8); PLATELET COUNT 316 K/MM3 (134-434); RBC 5.38 M/mm3 (4.00-5.60); RDW 15.4 % (11.9-15.9); WHITE BLOOD COUNT 9.3 K/mm3 (4.0-10.0)
[2020-04-13 08:40] LABS: ALBUMIN 3.2 g/dl (3.4-5.0); BILIRUBIN,TOTAL 0.6 mg/dL (0.2-1); BLOOD UREA NITROGEN 24.8 mg/dL (7-18); CREATININE 0.9 mg/dL (0.55-1.3); MAGNESIUM 2.7 mg/dL (1.8-2.4); TOT PROT 7.2 g/dl (6.4-8.2)
[2020-04-13] MEDS: PANTOPRAZOLE 40 MG TABLET PO SCH (10:19)
[2020-04-13] MEDS: methylPREDNISolone NA SUCC 40 MG/1 ML VIAL IVPUSH SCH (10:20)
[2020-04-13] MEDS: ENOXAPARIN NA (PORCINE) 40 MG/0.4 ML DISP.SYRIN SQ SCH (10:20)
[2020-04-13] MEDS: SODIUM CHLORIDE NASAL SPRAY 44 ML BOTTLE NS SCH (10:20)
--- NOTE | 2020-04-13 11:49 | PN ---
Progress Note, Physician History of Present Illness: pulmonary alert,comfortable,sob improved,+ cough - Current Medication List Current Medications: Active Medications Albuterol Sulfate (Ventolin Hfa Inhaler -) 2 puff IH Q6H PRN PRN Reason: SHORT OF BREATH/WHEEZING Last Admin: 04/11/20 20:04 Dose: 2 puff Documented by: Albuterol/Ipratropium (Duoneb -) 1 amp NEB Q4H PRN PRN Reason: SHORTNESS OF BREATH Enoxaparin Sodium (Lovenox -) 40 mg SQ DAILY [facility] Last Admin: 04/13/20 10:20 Dose: 40 mg Documented by: Loratadine (Claritin -) 10 mg PO DAILY PRN PRN Reason: ALLERGIES Methylprednisolone Sodium Succinate (Solu-Medrol -) 40 mg IVPUSH BID [facility] Last Admin: 04/13/20 10:20 Dose: 40 mg Documented by: Pantoprazole Sodium (Protonix -) 40 mg PO DAILY [facility] Last Admin: 04/13/20 10:19 Dose: 40 mg Documented by: Sodium Chloride ([place] Nasal [place] -) 2 spray NS BID [facility] Last Admin: 04/13/20 10:20 Dose: 2 sprays Documented by: - Objective Vital Signs: Vital Signs Temperature 97.4 F L 04/13/20 06:58 Pulse Rate 111 H 04/13/20 09:27 Respiratory Rate 18 04/13/20 06:58 Blood Pressure 116/63 04/13/20 06:58 O2 Sat by Pulse Oximetry (%) 92 L 04/13/20 09:27 Constitutional: Yes: Well Nourished, Calm Eyes: Yes: WNL HENT: Yes: WNL Neck: Yes: WNL Cardiovascular: Yes: Regular Rate and Rhythm, S1, S2 Respiratory: Yes: Wheezes (few wheezes anteriorly) Gastrointestinal: Yes: Normal Bowel Sounds, Soft Extremities: Yes: WNL Edema: No Labs: CBC, BMP 04/13/20 07:20 04/13/20 07:20 Problem List - Problems (1) Asthma exacerbation Code(s): J45.901 - UNSPECIFIED ASTHMA WITH (ACUTE) EXACERBATION Qualifiers: Asthma severity: moderate Asthma persistence: persistent Qualified Code(s): J45.41 - Moderate persistent asthma with (acute) exacerbation Assessment/Plan A/P Acute Asthma Exacerbation - Steroid taper - inhaled bronchodilators standing and PRN - O2 to keep SpO2 >90% - monitor peak flow - DVT prophylaxis - outpatient pfts - IGE level outpatient - f/u eosinophil count as outpatient DR HERR
--- NOTE | 2020-04-13 12:01 | DS ---
Physical Exam: SUBJECTIVE: Patient seen and examined, breathing improved. denies chest pain. OBJECTIVE: patient w/o pcp, once has been assigned: You have a follow up appointment on April 22 (next Saturday) with Dr. Conner at the [facility] at 10:30 AM. Address: [address] [place] [address] floor Time: 10:30 a.m. Bring: discharge paper work, all medications including bottles and your insurance card --- Patient is a 34 year old. male with a past medical history of seasonal allergies, asthma came to ED c/o SOB and "asthma attack" Patient has history of multiple hospitalizations d/t asthma but no hx of intubation. Last hospitalization was 2 months ago. Pt stated he had been having worsening of his asthma symptoms with minimal relief with his home nebulizers which he was using multiple times a day. 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 Pt is on room air, lungs now clear, no cough, Covid negative. Patient to be transitioned to oral prednisone from IV solumedrol, will need outpatient follow up. Vital Signs Period Temp Pulse Resp BP Sys/New Pulse Ox Last 24 Hr 97.3 F-97.9 F 71-111 16-18 116-136/63-82 92-96 PHYSICAL EXAM GENERAL: The patient is awake, alert, and fully oriented, in no acute distress. HEAD: Normal with no signs of trauma. EYES: PERRL, extraocular movements intact, sclera anicteric, conjunctiva clear. No ptosis. ENT: Ears normal, nares patent, oropharynx clear without exudates, moist mucous membranes. NECK: Trachea midline, full range of motion, supple. LUNGS: + wheezes left upper lobe, good chest expansion, no crackles or rales HEART: Regular rate and rhythm, S1, S2 without murmur, rub or gallop. ABDOMEN: Soft, nontender, nondistended, normoactive bowel sounds, no guarding, no rebound, no hepatosplenomegaly, no masses. EXTREMITIES: 2+ pulses, warm, well-perfused, no edema. NEUROLOGICAL: Cranial nerves II through XII grossly intact. Normal speech, gait not observed. PSYCH: Normal mood, normal affect. SKIN: Warm, dry, normal turgor, no rashes or lesions noted LABS Laboratory Results - last 24 hr 04/13/20 04/13/20 07:20 07:20 WBC 9.3 RBC 5.38 Hgb 14.9 Hct 45.9 MCV 85.3 MCH 27.7 MCHC 32.5 RDW 15.4 Plt Count 316 MPV 8.0 Absolute Neuts (auto) 7.1 Neutrophils % 77.2 Lymphocytes % 16.4 D Monocytes % 5.7 Eosinophils % 0.0 Basophils % 0.7 D Nucleated RBC % 0 Sodium 140 Potassium 5.0 Chloride 107 Carbon Dioxide 24 Anion Gap 9 BUN 24.8 H Creatinine 0.9 Est GFR (CKD-EPI)AfAm 129.61 Est GFR (CKD-EPI)NonAf 111.83 Random Glucose 104 Calcium 9.0 Magnesium 2.7 H Total Bilirubin 0.6 AST 13 L ALT 18 Alkaline Phosphatase 52 Total Protein 7.2 Albumin 3.2 L HOSPITAL COURSE: Date of Admission:04/10/20 Date of Discharge: 04/13/20 Minutes to complete discharge: 60 Discharge Summary Problems reviewed: Yes Reason For Visit: ACUTE RESPIRATORY FAILURE Current Active Problems Asthma exacerbation (Acute) DVT prophylaxis (Acute) Condition: Improved - Instructions Diet, Activity, Other Instructions: Mr Rea: You were admitted to [facility] on 04/10/2020 for asthma exacerbation. You will be sent home today with the following discharge instructions Asthma: Asthma is a condition in which your airways narrow and produce extra mucus. We treated your asthma with IV steriods called Solumedrol. We will be sending you home with Prednisone that you will need to take once per day and taper down slowly. Here is how you will take the Predisone On 04/14/2020 - take 60mg of Prednisone with breakfast ( keep in mind that each pill is 10mg you will need to take 6 pills) On 04/15/2020 - take 50mg of Prednisone with breakfast ( keep in mind that each pill is 10mg you will need to take 5 pills) On 04/16/2020 - take 40mg of Prednisone with breakfast ( keep in mind that each pill is 10mg you will need to take 4 pills) On 04/17/2020 - take 30mg of Prednisone with breakfast ( keep in mind that each pill is 10mg you will need to take 3 pills) On 04/18/2020 - take 20mg of Prednisone with breakfast ( keep in mind that each pill is 10mg you will need to take 2 pills) On 04/19/2020 - take 10mg of Prednisone with breakfast ( keep in mind that each pill is 10mg you will need to take 1 pill) - THIS IS YOUR LAST DOSE Prednisone can cause stomach upset, take with food and take Protonix 40mg ONCE per day with it to help reduce stomach upset. FOLLOW UPS: You have a follow up appointment on April 22 (next Saturday) with Dr. Conner at the [facility] at 10:30 AM. Address: [address] [place] [address] 2nd floor Time: 10:30 a.m. Bring: discharge paper work, all medications including bottles and your insurance card Thank you for allowing us to care for you Referrals: [facility] [Provider Group] - 1 Week (SaturdayApril 22 at 10:30AM with Dr. Conner) Disposition: HOME - Home Medications Comprehensive Discharge Medication List: Ambulatory Orders Albuterol Sulfate Inhaler - [Ventolin HFA Inhaler -] 1 - 2 inh PO QID 09/28/19 Fluticasone/Vilanterol [Breo Ellipta 200-25 Mcg INH] 1 each IH BID #2 blst.w.dev 04/12/20 Albuterol Sulfate Inhaler - [Ventolin HFA Inhaler -] 2 puff IH Q6H PRN #2 inhaler 04/13/20 Loratadine [Claritin -] 10 mg PO DAILY PRN #30 tablet 04/13/20 Pantoprazole Sodium [Protonix -] 40 mg PO DAILY #30 tablet.ec 04/13/20 Prednisone 60 mg PO DAILY #30 tablet 04/13/20 Problem List - Problems (1) Asthma exacerbation Assessment/Plan: oral prednisone on taper schedule Code(s): J45.901 - UNSPECIFIED ASTHMA WITH (ACUTE) EXACERBATION Qualifiers: Asthma severity: moderate Asthma persistence: persistent Qualified Code(s): J45.41 - Moderate persistent asthma with (acute) exacerbation (2) Nasal congestion Assessment/Plan: ocean spray prn Code(s): R09.81 - NASAL CONGESTION (3) DVT prophylaxis Code(s): Z29.9 - ENCOUNTER FOR PROPHYLACTIC MEASURES, UNSPECIFIED (4) Prophylactic measure Code(s): Z29.9 - ENCOUNTER FOR PROPHYLACTIC MEASURES, UNSPECIFIED This patient is new to me today: No Emergency Visit: Yes ED Registration Date: 04/10/20 Care time: The patient presented to the Emergency Department on the above date and was hospitalized for further evaluation of their emergent condition. Critical Care patient: No - Discharge Referral Referred to [facility] Med P.C.: No
[2020-04-13 12:04] VITALS: BP 138/78; PULSE 69; TEMP 97.9
== END 2020-04-13 13:57 | disposition home or self-care (01) | DRG 141 ==
LOC: JER 21:41 → JERBED 23:52 → J6WEST-2 04-11 10:32 → J5S 04-12 18:24
PROVIDERS: ADMIT Internal Medicine; ATTEND Nurse Practitioner Family
DX: J45.41 Moderate persistent asthma with (acute) exacerbation (principal); R05 Cough; R09.81 Nasal congestion; R07.89 Other chest pain
CPT/HCPCS: 36415; 71045-TC-FY; 80053; 83735; 85025; 93005; 93010; 94761; 99285-25; U0003

== ENCOUNTER 2020-09-15 02:37 | Inpatient (IN) | payer OTHER ==
[2020-09-15] MEDS ORDERED: ALBUTEROL SO4 2.5/IPRATROPIUM 0.5 INH SOL 3 ML VIAL.NEB. NEB ONE ×4 (02:42→02:55)
[2020-09-15] MEDS ORDERED: ALBUTEROL SO4 0.083% IH SOL 2.5 MG/3 ML VIAL.NEB. NEB ONE ×2 (02:47→03:58)
[2020-09-15 02:53] VITALS: BMI 36.2
[2020-09-15] MEDS ORDERED: DEXAMETHASONE SOD PHOSPHATE 10 MG/1 ML VIAL ONE (02:55)
[2020-09-15] MEDS ORDERED: MAGNESIUM SULFATE IN WATER 2 GM/50 ML IVPB IVPB ONE (02:56)
[2020-09-15 03:29] LABS: BASO % 0.5 % (0-2.0); EOS % 2.8 % (0-4.5); HEMATOCRIT 42.6 % (35.4-49); LYMPH % 15.5 % (8-40); MCH 28.3 pg (25.7-33.7); MCHC 32.8 g/dl (32.0-35.9); MEAN CELL VOLUME 86.3 fl (80-96); MEAN PLT VOLUME 7.7 fl (7.5-11.1); MONO % 4.7 % (3.8-10.2); NEUT % 76.5 % (42.8-82.8); PLATELET COUNT 268 K/MM3 (134-434); RBC 4.94 M/mm3 (4.00-5.60); WHITE BLOOD COUNT 8.9 K/mm3 (4.0-10.0)
[2020-09-15 03:39] LABS: INR 1.08 (0.83-1.09)
[2020-09-15 03:49] LABS: CHLORIDE 107 mmol/L (98-107); SODIUM 141 mmol/L (136-145)
[2020-09-15 03:51] LABS: BLOOD UREA NITROGEN 11.9 mg/dL (7-18); CALCIUM 8.1 mg/dL (8.5-10.1)
[2020-09-15 03:52] LABS: ALBUMIN 3.2 g/dl (3.4-5.0); GLUCOSE,RANDOM 128 mg/dL (74-106); MAGNESIUM 2.9 mg/dL (1.8-2.4)
[2020-09-15 03:55] LABS: CREATININE 1.1 mg/dL (0.55-1.3); SGOT/AST 10 U/L (15-37); SGPT/ALT 14 U/L (13-61)
[2020-09-15 03:56] LABS: BILIRUBIN,TOTAL 0.2 mg/dL (0.2-1); TOT PROT 6.5 g/dl (6.4-8.2)
[2020-09-15 03:57] LABS: ALK PHOS 57 U/L (45-117)
[2020-09-15 04:00] LABS: ANION GAP 7 MMOL/L (8-16); CO2 28 mmol/L (21-32)
[2020-09-15] MEDS ORDERED: CEFTRIAXONE 1,000 MG in DEXTROSE 5%-WATER - 50 ML IVPB ONE (05:43)
[2020-09-15 06:12] LABS: LDH 188 U/L (87-246)
[2020-09-15] MEDS ORDERED: CEFTRIAXONE 1 GM/50 ML BAG ONE (06:20)
[2020-09-15] MEDS ORDERED: ALBUTEROL SO4 0.083% IH SOL 2.5 MG/3 ML VIAL.NEB. NEB SCH (10:45)
[2020-09-15] MEDS ORDERED: ALBUTEROL SO4 HFA INHALER IH PRN (11:05)
[2020-09-15] MEDS ORDERED: methylPREDNISolone NA SUCC 40 MG/1 ML VIAL IVPUSH ONE (11:06)
[2020-09-15] MEDS ORDERED: methylPREDNISolone NA SUCC 40 MG/1 ML VIAL ONE (11:11)
[2020-09-15] MEDS ORDERED: ENOXAPARIN NA (PORCINE) 40 MG/0.4 ML DISP.SYRIN SQ ONE (11:11)
[2020-09-15] MEDS: ENOXAPARIN NA (PORCINE) 40 MG/0.4 ML DISP.SYRIN SQ SCH (11:42)
[2020-09-15] MEDS ORDERED: ALBUTEROL SO4 HFA INHALER IH SCH (12:00)
[2020-09-15] MEDS: BUDESONIDE/FORMETEROL FUMARATE 160/4.5 mcg INHALER IH SCH (21:44)
[2020-09-16] MEDS: ENOXAPARIN NA (PORCINE) 40 MG/0.4 ML DISP.SYRIN SQ SCH (09:35)
[2020-09-16] MEDS: BUDESONIDE/FORMETEROL FUMARATE 160/4.5 mcg INHALER IH SCH (09:37)
[2020-09-16 09:59] LABS: BASO % 0.5 % (0-2.0); EOS % 0.1 % (0-4.5); HEMATOCRIT 42.2 % (35.4-49); HEMOGLOBIN 13.6 GM/dL (11.7-16.9); LYMPH % 23.9 % (8-40); MCH 27.8 pg (25.7-33.7); MCHC 32.3 g/dl (32.0-35.9); MEAN CELL VOLUME 86.1 fl (80-96); MEAN PLT VOLUME 8.1 fl (7.5-11.1); MONO % 10.1 % (3.8-10.2); NEUT % 65.4 % (42.8-82.8); PLATELET COUNT 283 K/MM3 (134-434); RDW 14.4 % (11.9-15.9); WHITE BLOOD COUNT 8.4 K/mm3 (4.0-10.0)
[2020-09-16] MEDS ORDERED: predniSONE 20 MG TABLET (UD) PO SCH (10:00)
[2020-09-16 10:06] LABS: INR 1.2 (0.83-1.09); PROTHROMBIN TIME (PATIENT) 14.5 SEC (9.7-13.0)
[2020-09-16 10:08] LABS: ACTIVATED PTT 32.5 SECONDS (25.2-36.5)
[2020-09-16] MEDS ORDERED: ALBUTEROL SO4 2.5/IPRATROPIUM 0.5 INH SOL 3 ML VIAL.NEB. NEB PRN (10:10)
[2020-09-16 10:17] LABS: CHLORIDE 106 mmol/L (98-107); POTASSIUM 4.1 mmol/L (3.5-5.1); SODIUM 138 mmol/L (136-145)
[2020-09-16 10:19] LABS: ALBUMIN 3.2 g/dl (3.4-5.0); ANION GAP 4 MMOL/L (8-16); BLOOD UREA NITROGEN 13.6 mg/dL (7-18); CALCIUM 8.7 mg/dL (8.5-10.1); CO2 29 mmol/L (21-32); GLUCOSE,RANDOM 86 mg/dL (74-106)
[2020-09-16 10:20] LABS: MAGNESIUM 2.4 mg/dL (1.8-2.4)
[2020-09-16 10:22] LABS: CREATININE 0.9 mg/dL (0.55-1.3); PHOSPHOROUS 3.1 mg/dL (2.5-4.9); SGPT/ALT 12 U/L (13-61)
[2020-09-16 10:24] LABS: BILIRUBIN,TOTAL 0.4 mg/dL (0.2-1); SGOT/AST 7 U/L (15-37); TOT PROT 6.5 g/dl (6.4-8.2)
[2020-09-16 10:25] LABS: ALK PHOS 53 U/L (45-117)
[2020-09-16] MEDS ORDERED: FLU VACCINE (FLULAVAL) PF 60 MCG/0.5 ML SYRINGE 2020-2021 IM ONE (12:00)
[2020-09-16 15:07] VITALS: BP 138/58; PULSE 71; TEMP 97.5
== END 2020-09-16 18:50 | disposition home or self-care (01) | DRG 141 ==
LOC: JER 02:37 → JERBED 09:42 → J6S 22:24
PROVIDERS: ADMIT Student in an Organized Health Care Education/Training Program; ATTEND Student in an Organized Health Care Education/Training Program
DX: J45.41 Moderate persistent asthma with (acute) exacerbation (principal); Z91.14 Patient's other noncompliance with medication regimen
CPT/HCPCS: 36415; 71045-TC-FY; 80053; 82550; 82728; 83615; 83735; 84100; 84484; 85025; 85379; 85610; 85730; 86140; 93005; 93010; 99285-25; C9803; G0008; Q2036; U0003

== ENCOUNTER 2022-06-17 20:45 | Emergency (ER) | payer OTHER ==
[2022-06-17 20:58] VITALS: BP 112/76; PULSE 89; RESP 20; TEMP 97.7; BMI 30.7
[2022-06-17] MEDS ORDERED: DEXAMETHASONE SOD PHOSPHATE 10 MG/1 ML VIAL IM ONE (23:01)
[2022-06-17] MEDS ORDERED: ALBUTEROL SO4 2.5/IPRATROPIUM 0.5 INH SOL 3 ML VIAL.NEB. NEB ONE (23:12)
[2022-06-17] MEDS ORDERED: DEXAMETHASONE SOD PHOSPHATE 10 MG/1 ML VIAL ONE (23:12)
[2022-06-17] MEDS: ALBUTEROL SO4 2.5/IPRATROPIUM 0.5 INH SOL 3 ML VIAL.NEB. NEB SCH ×2 (23:20→23:21)
== END 2022-06-18 00:40 | disposition home or self-care (01) ==
LOC: JERFT 20:45 → JER 20:45 → JERFT 06-18 00:40
PROC: 3E0F7GC Introduction of Other Therapeutic Substance into Respiratory Tract, Via Natural or Artificial Opening (ICD-10-PCS; principal; 2022-06-17)
PROC: 3E0233Z Introduction of Anti-inflammatory into Muscle, Percutaneous Approach (ICD-10-PCS; 2022-06-17)
DX: J45.901 Unspecified asthma with (acute) exacerbation (principal); R11.2 Nausea with vomiting, unspecified
CPT/HCPCS: 71046-TC-FY; 99284-25; J1100

== ENCOUNTER 2022-12-28 14:32 | Observation (INO) | payer OTHER ==
[2022-12-28 14:46] VITALS: BMI 27.8
[2022-12-28] MEDS ORDERED: ALBUTEROL SO4 2.5/IPRATROPIUM 0.5 INH SOL 3 ML VIAL.NEB. NEB ONE ×2 (15:10→15:14)
[2022-12-28] MEDS ORDERED: methylPREDNISolone NA SUCC 125 MG/2 ML VIAL IVPUSH ONE (15:10)
[2022-12-28] MEDS ORDERED: methylPREDNISolone NA SUCC 125 MG/2 ML VIAL ONE (15:22)
[2022-12-28] MEDS ORDERED: MAGNESIUM SULF 50% (8.12 MEQ/2 ML-1 GM VIAL) IVPB ONE (15:35)
[2022-12-28] MEDS ORDERED: MAGNESIUM SULFATE IN WATER 2 GM/50 ML IVPB IVPB ONE (15:57)
[2022-12-28 16:12] LABS: BASO % 0.3 % (0-2.0); EOS % 3.5 % (0-4.5); HEMATOCRIT 45.1 % (35.4-49); HEMOGLOBIN 14.8 GM/dL (11.7-16.9); MCH 27.8 pg (25.7-33.7); MCHC 32.9 g/dl (32.0-35.9); MEAN CELL VOLUME 84.5 fl (80-96); MEAN PLT VOLUME 7.6 fl (7.5-11.1); MONO % 8.5 % (3.8-10.2); NEUT % 43.7 % (42.8-82.8); PLATELET COUNT 305 10^3/uL (134-434); RBC 5.34 M/mm3 (4.00-5.60); RDW 15.2 % (11.9-15.9); WHITE BLOOD COUNT 5.8 K/mm3 (4.0-10.0)
[2022-12-28 17:12] LABS: ALBUMIN 3.4 g/dl (3.4-5.0); BLOOD UREA NITROGEN 12.8 mg/dL (7-18); CALCIUM 8.8 mg/dL (8.5-10.1)
[2022-12-28 17:15] LABS: CREATININE 0.8 mg/dL (0.55-1.3)
[2022-12-28 17:17] LABS: BILIRUBIN,TOTAL 0.5 mg/dL (0.2-1)
[2022-12-28] MEDS ORDERED: ALBUTEROL SO4 HFA INHALER IH PRN (18:19)
[2022-12-28 19:54] LABS: PH,URINE 5.5 (5.0-8.0); URINE APPEARANCE CLEAR; URINE BILIRUBIN NEGATIVE (NEGATIVE); URINE COLOR YELLOW; URINE GLUCOSE (UA) NEGATIVE (NEGATIVE); URINE KETONE TRACE (NEGATIVE); URINE LEUK ESTERASE NEGATIVE (NEGATIVE); URINE NITRITE NEGATIVE (NEGATIVE); URINE PROTEIN NEGATIVE (NEGATIVE); URINE UROBILINOGEN 0.2 mg/dL (0.2-1.0)
[2022-12-28] MEDS ORDERED: methylPREDNISolone NA SUCC 40 MG/1 ML VIAL ONE (20:17)
[2022-12-28] MEDS: methylPREDNISolone NA SUCC 40 MG/1 ML VIAL IVPUSH SCH (20:21)
[2022-12-28] MEDS: ALBUTEROL SO4 2.5/IPRATROPIUM 0.5 INH SOL 3 ML VIAL.NEB. NEB SCH ×2 (20:21→23:00)
[2022-12-29] MEDS: ALBUTEROL SO4 2.5/IPRATROPIUM 0.5 INH SOL 3 ML VIAL.NEB. NEB SCH ×6 (03:00→23:08)
[2022-12-29] MEDS: methylPREDNISolone NA SUCC 40 MG/1 ML VIAL IVPUSH SCH ×3 (03:39→18:17)
[2022-12-29] MEDS ORDERED: predniSONE 20 MG TABLET (UD) PO SCH ×2 (10:00→12:30)
[2022-12-29 10:15] LABS: BASO % 0.1 % (0-2.0); HEMATOCRIT 41.9 % (35.4-49); HEMOGLOBIN 13.8 GM/dL (11.7-16.9); LYMPH % 15.2 % (8-40); MCH 27.7 pg (25.7-33.7); MCHC 32.9 g/dl (32.0-35.9); MEAN CELL VOLUME 84.1 fl (80-96); MONO % 1.9 % (3.8-10.2); NEUT % 82.8 % (42.8-82.8); PLATELET COUNT 310 10^3/uL (134-434); RBC 4.98 M/mm3 (4.00-5.60); RDW 15.1 % (11.9-15.9)
[2022-12-29] MEDS: ENOXAPARIN NA (PORCINE) 40 MG/0.4 ML DISP.SYRIN SQ SCH (10:27)
[2022-12-29 10:44] LABS: CALCIUM 8.7 mg/dL (8.5-10.1)
[2022-12-29 10:45] LABS: ALBUMIN 3.2 g/dl (3.4-5.0); BLOOD UREA NITROGEN 15.8 mg/dL (7-18); MAGNESIUM 2.5 mg/dL (1.8-2.4)
[2022-12-29 10:48] LABS: CREATININE 0.8 mg/dL (0.55-1.3); PHOSPHOROUS 3.6 mg/dL (2.5-4.9)
[2022-12-29 10:49] LABS: BILIRUBIN,TOTAL 0.6 mg/dL (0.2-1); TOT PROT 6.6 g/dl (6.4-8.2)
[2022-12-29] MEDS: BUDESONIDE/FORMETEROL FUMARATE 160/4.5 mcg INHALER IH SCH (21:33)
[2022-12-30] MEDS: methylPREDNISolone NA SUCC 40 MG/1 ML VIAL IVPUSH SCH ×2 (02:50→10:40)
[2022-12-30] MEDS: ALBUTEROL SO4 2.5/IPRATROPIUM 0.5 INH SOL 3 ML VIAL.NEB. NEB SCH ×3 (03:29→11:26)
[2022-12-30 09:55] LABS: BASO % 0.2 % (0-2.0); HEMATOCRIT 43.1 % (35.4-49); HEMOGLOBIN 14.3 GM/dL (11.7-16.9); LYMPH % 10.2 % (8-40); MCH 27.9 pg (25.7-33.7); MCHC 33.1 g/dl (32.0-35.9); MEAN CELL VOLUME 84.1 fl (80-96); MEAN PLT VOLUME 7.6 fl (7.5-11.1); MONO % 2.8 % (3.8-10.2); NEUT % 86.8 % (42.8-82.8); PLATELET COUNT 316 10^3/uL (134-434); RBC 5.12 M/mm3 (4.00-5.60); RDW 15.1 % (11.9-15.9); WHITE BLOOD COUNT 11.1 K/mm3 (4.0-10.0)
[2022-12-30 10:15] LABS: BLOOD UREA NITROGEN 17.3 mg/dL (7-18)
[2022-12-30 10:18] LABS: CREATININE 0.9 mg/dL (0.55-1.3)
[2022-12-30 10:36] VITALS: BP 115/75; PULSE 96; RESP 18; TEMP 97.7
[2022-12-30] MEDS: ENOXAPARIN NA (PORCINE) 40 MG/0.4 ML DISP.SYRIN SQ SCH (10:40)
[2022-12-30] MEDS: BUDESONIDE/FORMETEROL FUMARATE 160/4.5 mcg INHALER IH SCH (11:12)
== END 2022-12-30 14:50 | disposition home or self-care (01) ==
LOC: JER 14:32 → JERBED 17:54 → J5S 21:53
PROVIDERS: ADMIT Internal Medicine; ATTEND Internal Medicine
PROC: 3E0F7GC Introduction of Other Therapeutic Substance into Respiratory Tract, Via Natural or Artificial Opening (ICD-10-PCS; principal; 2022-12-28)
PROC: 3E033GC Introduction of Other Therapeutic Substance into Peripheral Vein, Percutaneous Approach (ICD-10-PCS; 2022-12-28)
PROC: 3E023GC Introduction of Other Therapeutic Substance into Muscle, Percutaneous Approach (ICD-10-PCS; 2022-12-28)
DX: J45.41 Moderate persistent asthma with (acute) exacerbation (principal); M19.90 Unspecified osteoarthritis, unspecified site; Z88.8 Allergy status to other drugs, medicaments and biological substances; Z87.891 Personal history of nicotine dependence; R05.9 Cough, unspecified
CPT/HCPCS: 0241U-QW; 36415; 71045-TC-FY; 80048; 80053; 81003; 83036; 83735; 84100; 85025; 94010; 94640; 94761; 96372; 96374; 96375; 96376; 99285-25; G0378

== ENCOUNTER 2023-04-01 05:03 | Emergency (ER) | payer OTHER ==
[2023-04-01] MEDS ORDERED: ALBUTEROL SO4 2.5/IPRATROPIUM 0.5 INH SOL 3 ML VIAL.NEB. NEB ONE ×3 (05:15→06:22)
[2023-04-01 05:17] VITALS: BP 129/77; PULSE 89; RESP 20; TEMP 97.4; BMI 31.4
[2023-04-01] MEDS ORDERED: DEXAMETHASONE SOD PHOSPHATE 10 MG/1 ML VIAL IM ONE (05:54)
[2023-04-01] MEDS ORDERED: DEXAMETHASONE SOD PHOSPHATE 10 MG/1 ML VIAL ONE (05:57)
== END 2023-04-01 06:47 | disposition home or self-care (01) ==
LOC: JER 05:03
PROC: 3E023GC Introduction of Other Therapeutic Substance into Muscle, Percutaneous Approach (ICD-10-PCS; principal; 2023-04-01)
PROC: 3E0F7GC Introduction of Other Therapeutic Substance into Respiratory Tract, Via Natural or Artificial Opening (ICD-10-PCS; 2023-04-01)
DX: J45.901 Unspecified asthma with (acute) exacerbation (principal); R06.02 Shortness of breath; R51.9 Headache, unspecified; R05.9 Cough, unspecified
CPT/HCPCS: 94640; 96372; 99284-25; J1100

== ENCOUNTER 2023-11-19 14:37 | Emergency (ER) | payer OTHER ==
[2023-11-19 14:46] VITALS: BP 135/76; PULSE 95; RESP 18; TEMP 98.2; BMI 27.8
[2023-11-19] MEDS ORDERED: DEXAMETHASONE SOD PHOSPHATE 10 MG/1 ML VIAL ONE (17:07)
[2023-11-19] MEDS ORDERED: METHOCARBAMOL 500 MG TABLET ONE ×2 (17:07→17:09)
[2023-11-19] MEDS ORDERED: ACETAMINOPHEN 500 MG TABLET (FP) ONE (17:07)
[2023-11-19] MEDS: ACETAMINOPHEN 500 MG TABLET (FP) PO ONE (17:24)
[2023-11-19] MEDS: DEXAMETHASONE SOD PHOSPHATE 10 MG/1 ML VIAL IM ONE (17:24)
[2023-11-19] MEDS: METHOCARBAMOL 500 MG TABLET PO ONE (17:24)
== END 2023-11-19 19:37 | disposition home or self-care (01) ==
LOC: JERFT 14:37
PROC: 3E023GC Introduction of Other Therapeutic Substance into Muscle, Percutaneous Approach (ICD-10-PCS; principal; 2023-11-19)
DX: M54.50 Low back pain, unspecified (principal)
CPT/HCPCS: 72100-TC-FY; 96372; 99284-25; J1100